=== PATIENT | male | born 1975 | race Caucasian/White ===

== ENCOUNTER 2019-02-20 00:58 | Observation (INO) | payer SELFPAY, OTHER | END 2019-02-20 15:40 | disposition home or self-care (01) | LOC: ER FS 00:58 → 4TH 02:41 → ICU 11:02 ==

== ENCOUNTER 2021-08-19 10:12 | Emergency (ER) | payer SELFPAY ==
[~2021-08-19] VITALS: Ht 177 cm; Wt 170.0 kg
[~2021-08-19 10:12] MED LIST: ASPI-1238 PO
--- NOTE | 2021-08-19 11:10 | ED General ---
General Chief Complaint: COVID19 Suspect/Confirmed Stated Complaint: SOB; COVID+ Source of Information: Patient History of Present Illness Date Seen by Provider: Aug 19, 2021 Time Seen by Provider: 10:31 Initial Comments 46 yo male presenting with complaints of shortness of breath and trouble breathing. He reports being diagnosed with Covid on August 16. He has had nausea, vomiting, diarrhea, right flank pain, cough, fever, chills. He feels dizzy when he stands up. He has overall been feeling like he has trouble breathing especially when he tries to move around. He has a primary provider in [place] and when he called the clinic they advised him to go to the hospital to be seen. Since he lives in [place] he came to the stand-alone emergency department here rather than going to the hospital. Timing/Duration: 4-5 Days Severity: Severe Modifying Factors: worse with Movement Associated Systoms: No Chest Pain; Cough; No Diaphoresis; Fever/Chills, Headaches, Loss of Appetite, Malaise, Nausea/Vomiting; No Rash, No Seizure; Shortness of Air; No Syncope; Weakness Allergies and Home Medications Allergies Coded Allergies: No Known Drug Allergies (Unverified , 02/20/19) Patient Home Medication List Home Medication List Reviewed: Yes Aspirin (Aspirin EC) 81 Mg Tablet.dr, 81 MG PO DAILY Prescribed by: SUZANNE LINARES on 02/20/19 1053 Azithromycin (Azithromycin) 500 Mg Tablet, 500 MG PO DAILY Prescribed by: EZEKIEL JOY on 08/19/21 1401 Benzonatate (Benzonatate) 200 Mg Capsule, 200 MG PO TID PRN for COUGH Prescribed by: EZEKIEL JOY on 08/19/21 1401 Promethazine HCl (Promethazine Tablet) 25 Mg Tablet, 25 MG PO Q6H PRN for NAUSEA/VOMITING Prescribed by: EZEKIEL JOY on 08/19/21 1401 Review of Systems Review of Systems Constitutional: see HPI, chills, fever, malaise EENTM: nose congestion; No epistaxis Respiratory: cough, short of breath Cardiovascular: No chest pain Gastrointestinal: diarrhea, nausea, vomiting Genitourinary: decreased output Musculoskeletal: back pain (Right flank and posterior back pain) Skin: No change in color, No rash Psychiatric/Neurological: Headache, Weakness (Generalized) Past Aazrjfo-Tgorgu-Yyvyzc Hx Seasonal Allergies Seasonal Allergies: No Past Medical History Surgeries: Yes Gallbladder Respiratory: Yes Asthma, Sleep Apnea Currently Using CPAP: Yes Currently Using BIPAP: No Cardiac: No Neurological: No Sexually Transmitted Disease: No (low testerone) HIV/AIDS: No Genitourinary: No Gastrointestinal: No Musculoskeletal: No Endocrine: No HEENT: No Cancer: No Psychosocial: Yes Anxiety Integumentary: No Blood Disorders: No Family Medical History Cardiovascular disease grandparents Physical Exam Vital Signs Vital Signs - First Documented 08/19/21 08/19/21 11:06 14:36 Temp 38.7 Pulse 87 Resp 11 B/P (MAP) 142/116 (125) Pulse Ox 99 O2 Delivery Room Air Capillary Refill : Height, Weight, BMI Height: 5'9.00" Weight: 358lbs. 8.0oz. 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 Norm as Tested Skin: Normal Color, Warm/Dry Focused Exam Lactate Level 08/19/21 11:01: Lactic Acid Level 0.72 Lactic Acid Level Laboratory Tests Test 08/19/21 11:01 Lactic Acid Level 0.72 MMOL/L (0.50-2.00) Progress/Results/Core Measures Suspected Sepsis SIRS Temperature: Pulse: Respiratory Rate: Laboratory Tests 08/19/21 11:01: White Blood Count 6.7 Blood Pressure / Mean: 08/19/21 11:01: Lactic Acid Level 0.72 Laboratory Tests 08/19/21 11:01: Creatinine 1.31H, INR Comment 1.0, Platelet Count 225, Total Bilirubin 0.3 Results/Orders Lab Results Laboratory Tests Test 08/19/21 11:01 08/19/21 11:15 Range/Units White Blood Count 6.7 4.3-11.0 10^3/uL Red Blood Count 4.51 4.30-5.52 10^6/uL Hemoglobin 13.5 13.3-17.7 g/dL Hematocrit 40 40-54 % Mean Corpuscular Volume 89 80-99 fL Mean Corpuscular Hemoglobin 30 25-34 pg Mean Corpuscular Hemoglobin Concent 34 32-36 g/dL Red Cell Distribution Width 13.3 10.0-14.5 % Platelet Count 225 130-400 10^3/uL Mean Platelet Volume 10.2 9.0-12.2 fL Neutrophils (%) (Auto) 65 42-75 % Lymphocytes (%) (Auto) 29 12-44 % Monocytes (%) (Auto) 5 0-12 % Eosinophils (%) (Auto) 0 0-10 % Basophils (%) (Auto) 0 0-10 % Neutrophils # (Auto) 4.4 1.8-7.8 X 10^3 Lymphocytes # (Auto) 2.0 1.0-4.0 X 10^3 Monocytes # (Auto) 0.4 0.0-1.0 X 10^3 Eosinophils # (Auto) 0.0 0.0-0.3 10^3/uL Basophils # (Auto) 0.0 0.0-0.1 10^3/uL Prothrombin Time 13.5 12.2-14.7 SEC INR Comment 1.0 0.8-1.4 Activated Partial Thromboplast Time 33 24-35 SEC D-Dimer 0.46 0.00-0.49 UG/ML Sodium Level 135 135-145 MMOL/L Potassium Level 3.8 3.6-5.0 MMOL/L Chloride Level 100 98-107 MMOL/L Carbon Dioxide Level 23 21-32 MMOL/L Anion Gap 12 5-14 MMOL/L Blood Urea Nitrogen 13 7-18 MG/DL Creatinine 1.31 H 0.60-1.30 MG/DL Estimat Glomerular Filtration Rate 59 BUN/Creatinine Ratio 93 Glucose Level 93 70-105 MG/DL Lactic Acid Level 0.72 0.50-2.00 MMOL/L Calcium Level 8.7 8.5-10.1 MG/DL Corrected Calcium 9.0 8.5-10.1 MG/DL Total Bilirubin 0.3 0.1-1.0 MG/DL Aspartate Amino Transf (AST/SGOT) 35 H 5-34 U/L Alanine Aminotransferase (ALT/SGPT) 33 0-55 U/L Alkaline Phosphatase 76 40-136 U/L Troponin I < 0.30 <0.30 NG/ML C-Reactive Protein 8.43 H <0.50 MG/DL Total Protein 7.2 6.4-8.2 GM/DL Albumin 3.6 3.2-4.5 GM/DL Blood Gas Puncture Site LT RADIAL Blood Gas Patient Temperature 101.6 Arterial Blood pH 7.43 7.37-7.43 Arterial Blood Partial Pressure CO2 38 35-45 MMHG Arterial Blood Partial Pressure O2 58 L 79-93 MMHG Arterial Blood HCO3 25 23-27 MMOL/L Arterial Blood Total CO2 26.4 21.0-31.0 MMOL/L Arterial Blood Oxygen Saturation 91 L 94-100 % Arterial Blood Base Excess 1.0 -2.5-2.5 MMOL/L Freddie Test NA Blood Gas Ventilator Setting NO Blood Gas Inspired Oxygen ROOM AIR My Orders Orders - EZEKIEL JOY MD Monitor-Rhythm Ecg Trace Only (08/19/21 11:03) Ed Iv/Invasive Line Start (08/19/21 11:03) Cbc With Automated Diff (08/19/21 11:03) Comprehensive Metabolic Panel (08/19/21 11:03) Crp Fs (08/19/21 11:03) Troponin I Fs (08/19/21 11:03) Protime With Inr (08/19/21 11:03) Partial Thromboplastin Time (08/19/21 11:03) Ekg Tracing (08/19/21 11:03) Arterial Blood Gas (08/19/21 11:03) Ns Iv 1000 Ml (Sodium Chloride 0.9%) (08/19/21 11:15) Acetaminophen Tablet/Caplet (Tylenol T (08/19/21 11:15) Ondansetron Injection (Zofran Injectio (08/19/21 11:15) Covid-19 External Lab Results (08/19/21 11:03) Isolation Central Supply Req (08/19/21 11:03) Blood Culture (08/19/21 11:03) Fibrin Degradation Products (08/19/21 11:03) Ua Culture If Indicated (08/19/21 11:03) Chest 1 View Ap/Pa Only (08/19/21 11:03) Ct [facility] Chest/Noang Abd-Pelv W (08/19/21 11:03) Lactic Acid Analyzer (08/19/21 11:03) Iohexol Injection (Omnipaque 350 Mg/Ml 1 (08/19/21 12:30) Received Contrast (Hold Metformin- Contr (08/19/21 12:30) Ns (Ivpb) (Sodium Chloride 0.9% Ivpb Bag (08/19/21 12:30) Albuterol Inhaler (Albuterol) (08/19/21 14:00) Benzonatate Capsule (Tessalon Perles) (08/19/21 13:31) Ketorolac Injection (Toradol Injection) (08/19/21 13:31) Azithromycin Tablet (Zithromax Tablet) (08/19/21 13:31) Nursing Communication (Order) (08/19/21 13:33) Benzonatate Capsule (Tessalon Perles) (08/19/21 13:39) Medications Given in ED Current Medications Medications Dose Ordered Sig/Annel Route Start Time Stop Time Status Last Admin Dose Admin Acetaminophen 650 mg ONCE ONCE PO 08/19/21 11:15 08/19/21 11:16 DC 08/19/21 11:19 650 MG Iohexol 150 ml ONCE ONCE IV 08/19/21 12:30 08/19/21 12:31 DC 08/19/21 12:21 125 ML Ondansetron HCl 4 mg ONCE ONCE IV 08/19/21 11:15 08/19/21 11:16 DC 08/19/21 11:17 4 MG Sodium Chloride 100 ml ONCE ONCE IV 08/19/21 12:30 08/19/21 12:31 DC 08/19/21 12:21 80 ML Vital Signs/I&O 08/19/21 08/19/21 11:06 14:36 Temp 38.7 Pulse 87 87 Resp 11 18 B/P (MAP) 142/116 (125) 110/47 Pulse Ox 99 O2 Delivery Room Air Room Air Capillary Refill : Progress Note #1: Progress Note Obtain basic labs as well as blood cultures, lactic acid, electrocardiogram, chest x-ray, D-dimer, anticipate performing a CT angiogram of chest with CT abdomen/pelvis with contrast. Give IVF for hydration. Acetaminophen for fever. Zofran for nausea. Differential diagnosis includes Covid pneumonia, sepsis, atypical bacterial pneumonia, pyelonephritis, gastroenteritis, dehydration Progress Note #2: Progress Note CBC does not show acute significant abnormality. His lactic acid came back normal at 0.72. Rest of his chemistry appeared stable other than mild elevation of creatinine to 1.3. He had elevated CRP consistent with his Covid infection. He had infiltrate. On his chest x-ray. His electrocardiogram did not show any ischemic changes. His troponin was negative. D-dimer was negative. The CT angiogram of the chest showed the pneumonia but no evidence of pulmonary embolism or heart failure. The abdomen and pelvis component of the CT scan showed no acute process to explain his right CVA and flank pain. His appendix appeared normal. Progress Note #3: Progress Note Patient was feeling slightly better after fluids and treatment. Will use albuterol inhaler with spacer to help with his breathing and cough. Tessalon Perles to help with coughing. Encouraged to use Mucinex [id number] to help thin out his secretions. Continue to push fluids at home. Add on azithromycin 500 mg a day for 5 days for atypical bacterial pneumonia coverage. ECG Initial ECG Impression Date: Aug 19, 2021 Initial ECG Impression Time: 10:39 Initial ECG Rate: 84 Initial ECG Rhythm: Normal Sinus Initial ECG Comparisson: No Previous ECG Available Comment Sinus rhythm with a heart rate of 84 bpm. Left ventricular hypertrophy. MD interval [address] elevation. Borderline T abnormalities in inferior leads. QT interval 368 ms with a QTc interval 436 ms. No prior tracing available for comparison. Diagnostic Imaging Diagonstic Imaging: Xray Plain Films/CT/US/NM/MRI: chest Comments [facility], [place] NAME: URSULA [facility]ON [facility] REC#: [id number] PT STATUS: DEP ER : 1975 PHYSICIAN: EZEKIEL JOY MD ADMIT DATE: 08/19/21/ER FS Signed Date of Exam:08/19/21 CHEST 1 VIEW AP/PA ONLY INDICATION: Cough and fever, shortness breath. Patient is COVID 19 positive TIME OF EXAM: 11:15 a.m. Comparison is made with prior chest from 02/20/2019. Heart is enlarged. There are some patchy infiltrates left mid and lower lung field suggestive of pneumonia. Right lung appears to be fairly clear. No significant new effusion is seen. IMPRESSION: Patchy left-sided infiltrate suggestive of pneumonia. Dictated by: Dictated on workstation # [id number] Dict: 08/19/21 1124 Trans: 08/19/21 1603 CV [id number] Interpreted by: TASHIA RIOS MD Electronically signed by: TASHIA RIOS MD 08/19/21 1606 Reviewed: Reviewed by Me Diagonstic Imaging: CT Plain Films/CT/US/NM/MRI: chest, abdomen, pelvis Comments [facility] [address] [place], [place] NAME: URSULA ALSTON [facility] REC#: [id number] PT STATUS: DEP ER : 1975 PHYSICIAN: EZEKIEL JOY MD ADMIT DATE: 08/19/21/ER FS Signed Date of Exam:08/19/21 CT HERMELINDA CHEST/NOANG ABD-PELV W INDICATION: Covid+, cough, SOA, fever, Rt flank pain, n/v/d. EXAMINATION: CTA chest, abdomen, and pelvis. TECHNIQUE: Thin axial sections through the chest, abdomen, and pelvis were obtained following intravenous contrast bolus. Multiplanar MIP images were reconstructed and reviewed. All CT scans use one or more of the following dose optimizing techniques: automated exposure control, MA and/or KvP adjustment based on patient size and exam type or iterative reconstruction. FINDINGS: CT ANGIO CHEST: Evaluation of the pulmonary arterial system is without evidence of thromboembolism. No definite filling defects are seen within the central, lobar, or segmental branches. The thoracic aorta is without aneurysm or dissection. There is no pericardial fluid. There is no significant pleural fluid. Parenchymal evaluation does show some patchy groundglass infiltrates in the left upper lobe. There is some airspace consolidation in the left lower lobe. There is dependent atelectasis in both bases. IMPRESSION: 1. No evidence of pulmonary embolism or acute aortic disease. 2. Pulmonary infiltrates, consistent with pneumonia. CT ABDOMEN AND PELVIS: No discrete liver mass is detected. The gallbladder is surgically absent. There is no biliary ductal dilatation. The pancreas and spleen are unremarkable. No adrenal mass is detected. The kidneys are unremarkable. The aorta is nonaneurysmal. The small and large bowel loops are of normal caliber. There is no obstruction. The appendix is unremarkable. There is no free fluid or fluid collection. The bladder is decompressed. The prostate is unremarkable. IMPRESSION: No acute feature in the abdomen or pelvis is identified. Dictated by: Dictated on workstation # [id number] Dict: 08/19/21 1225 Trans: 08/19/21 1604 [id number] Interpreted by: TASHIA RIOS MD Electronically signed by: TASHIA RIOS MD 08/19/21 1604 Reviewed: Reviewed by Me Departure Impression Primary Impression: Pneumonia involving left lung Qualified Codes: J18.9 - Pneumonia, unspecified organism Additional Impressions: COVID-19 virus infection Nausea vomiting and diarrhea Headache Qualified Codes: R51.9 - Headache, unspecified Right flank pain Dehydration Fever and chills Viral syndrome Disposition: HOME, SELF-CARE Condition: Stable Departure-Patient Inst. Decision time for Depature: 14:03 Referrals: MEREDITH OSBORN (PCP/Family) Primary Care Physician Patient Instructions: COVID-19 ED, Fever, Adult ED, Flank Pain ED, Headache, Adult ED, How to Use a Metered Dose Inhaler ED, How to Use a Spacer, Nausea and Vomiting, Adult ED, Pneumonia, Adult ED Add. Discharge Instructions: Try to keep sipping on fluids and staying hydrated. Use the albuterol inhaler 2 puffs with the spacer every 4-6 hours as needed for wheezing, cough, shortness of breath. Use the nausea medicine to help keep your stomach settled. To help treat for the pneumonia make sure to take the full course of azithromycin. Use the Tessalon Perles or benzonatate to help with cough. You may also take szig-[id number] plain Mucinex to help loosen the cough and congestion. If worsening symptoms or not improving then certainly you could be reevaluated. Otherwise continue to work with your primary provider about your symptoms and the Covid infection with pneumonia. You may alternate acetaminophen and ibuprofen to help with headache and body aches. All discharge instructions reviewed with patient and/or family. Voiced understanding. Scripts Benzonatate (Benzonatate) 200 Mg Capsule 200 MG PO TID PRN for COUGH for 10 Days, #30 CAP 0 Refills Prov: EZEKIEL JOY MD 08/19/21 Azithromycin (Azithromycin) 500 Mg Tablet 500 MG PO DAILY for pneumonia for 4 Days, #4 TAB 0 Refills Prov: EZEKIEL JOY MD 08/19/21 Promethazine HCl (Promethazine Tablet) 25 Mg Tablet 25 MG PO Q6H PRN for NAUSEA/VOMITING for 5 Days, #20 TAB 0 Refills Prov: EZEKIEL JOY MD 08/19/21 EZEKIEL JOY MD Aug 19, 2021 11:10
[2021-08-19] MEDS ORDERED: NS IV 1000 ML 1,000 ML IV SCH (11:15)
[2021-08-19] MEDS ORDERED: ONDANSETRON 4 MG/2 ML (SDV) Z0FRAN IV ONE (11:15)
[2021-08-19] MEDS ORDERED: ACETAMINOPHEN 325 MG TABLET PO ONE (11:15)
--- NOTE | 2021-08-19 11:32 | Diagnostic Imaging Report ---
INDICATION: Cough and fever, shortness breath. Patient is COVID 19 positive TIME OF EXAM: 11:15 a.m. Comparison is made with prior chest from 02/20/2019. Heart is enlarged. There are some patchy infiltrates left mid and lower lung field suggestive of pneumonia. Right lung appears to be fairly clear. No significant new effusion is seen. IMPRESSION: Patchy left-sided infiltrate suggestive of pneumonia. Dictated by: Dictated on workstation # [id number]
[2021-08-19 11:41] LABS: BUN/CREATININE RATIO 93; CARBON DIOXIDE 23 MMOL/L (21-32); CHLORIDE 100 MMOL/L (98-107); CREATININE SERUM 1.31 MG/DL (0.60-1.30); GFR ESTIMATED 59; POTASSIUM 3.8 MMOL/L (3.6-5.0); SODIUM 135 MMOL/L (135-145)
[2021-08-19 11:42] LABS: ALANINE AMINOTRANSFERASE 33 U/L (0-55); ALBUMIN 3.6 GM/DL (3.2-4.5); ALKALINE PHOSPHATASE 76 U/L (40-136); BILIRUBIN,TOTAL 0.3 MG/DL (0.1-1.0); CALCIUM 8.7 MG/DL (8.5-10.1); GLUCOSE 93 MG/DL (70-105); TOTAL PROTEIN 7.2 GM/DL (6.4-8.2)
[2021-08-19 11:43] LABS: HEMATOCRIT 40 % (40-54); HEMOGLOBIN 13.5 g/dL (13.3-17.7); MEAN CORPUSCULAR HEMOGLOBIN 30 pg (25-34); MEAN CORPUSCULAR HGB CONC 34 g/dL (32-36); MEAN CORPUSCULAR VOLUME 89 fL (80-99); WHITE BLOOD COUNT 6.7 10^3/uL (4.3-11.0)
[2021-08-19 11:44] LABS: BASOPHILS % (AUTO) 0 % (0-10); EOSINOPHILS % (AUTO) 0 % (0-10); LYMPHOCYTES % (AUTO) 29 % (12-44); MEAN PLATELET VOLUME 10.2 fL (9.0-12.2); MONOCYTES # (AUTO) 0.4 X 10^3 (0.0-1.0); MONOCYTES % (AUTO) 5 % (0-12); NEUTROPHILS # (AUTO) 4.4 X 10^3 (1.8-7.8); NEUTROPHILS % (AUTO) 65 % (42-75); PLATELET COUNT 225 10^3/uL (130-400)
[2021-08-19 11:45] LABS: ABG OXYGEN SATURATION 91 % (94-100); ABG PCO2 38 MMHG (35-45); ABG PH 7.43 (7.37-7.43); ABG PO2 58 MMHG (79-93); ABG TCO2 26.4 MMOL/L (21.0-31.0)
[2021-08-19 11:46] LABS: INSPIRED O2 ROOM AIR; PATIENT TEMP 101.6; VENTILATOR NO
[2021-08-19 11:47] LABS: FIBRIN DEGRADATION PRODUCTS 0.46 UG/ML (0.00-0.49); PROTHROMBIN TIME PATIENT 13.5 SEC (12.2-14.7)
--- OUTSIDE RECORDS SUMMARY | 2021-08-19 12:14 | XMS REPORT | Clinical Summary ---
Author Author [facility] Organization [facility] Address Unknown Phone Unavailable Care Team Providers Care Crop Scout Name Role Phone Zac Bauman PCP Allergies No known active allergies Medications End Date Status Medication Sig Dispensed Refills Start Date Active vilazodone (VIIBRYD) 40 Take 20 mg by 0 mg Tab tablet mouth daily. Active albuterol 2 puffs as 0 (PROAIR/PROVENTIL/VENTOLI needed 0 N) 90 mcg/actuation HFA inhaler Active Problems Problem Noted Date Tenosynovitis, de Quervain 03/27/2021 Acute medial meniscal tear, right, initial encounter 02/12/2021 Chondromalacia of patellofemoral joint, right 2020 Social History Date Tobacco Use Types Packs/Day Years Used Never Smoker Smokeless Tobacco: Never Used Comments Alcohol Use Standard Drinks/Week Not Currently 0 (1 standard drink = 0.6 o z pure alcohol) Sex Assigned at Date Recorded Not on file Last Filed Vital Signs Reading Time Taken Comments Vital Sign 139/89 03/27/2021 2:00 PM CDT Blood Pressure 65 03/27/2021 2:00 PM CDT Pulse 36.4 C (97.6 F) 03/27/2021 1:30 PM CDT Temperature 16 03/27/2021 2:00 PM CDT Respiratory Rate 94% 03/27/2021 2:00 PM CDT Oxygen Saturation - - Inhaled Oxygen Concentration 182.8 kg (403 lb) 03/27/2021 10:01 AM CDT Weight 175.3 cm (5' 9") 03/25/2021 9:37 AM CDT Height 59.51 03/25/2021 9:37 AM CDT Body Mass Index Plan of Treatment Health Maintenance Due Date Last Done Comments Td/Tdap# 1975 COVID-19 Vaccine (1) 1987 Influenza Vaccine (#1) 2021 Pneumococcal Vaccine: Aged Out No longer eligib le based on patient's age to Pediatrics (0 to 5 Years) complete this topic and At-Risk Patients (6 to 64 Years) Results Not on filefrom Last 3 Months Insurance Type Payer Benefit Subscriber ID Effective Phone Address Plan / Dates Group [employer] COMPENS[employer] M[employer] WORK [id number] 2020-P [phone] [address] [id number] OTHER GOVERNMENT COVID19 [id number] 2021- [phone] [place] [place] [id number] UNINSURED ATTN: TESTING [employer] AND [employer] [place] [address] Advance Directives For more information, please contact: [phone] Patient Transfer Table Operator Explanation Type Date Recorded Health Care Directive Care Teams Start Date End Date Crop Scout Relationship Specialty 02/04/21 Zac Bauman PA PCP - General Physician [address] [place] [id number]
[2021-08-19] MEDS ORDERED: IOHEXOL 350 MG/ML 150 ML (OMNIPAQUE 350) VIAL IV ONE (12:30)
[2021-08-19] MEDS ORDERED: NS 100 ML (IVPB) BAG IV ONE (12:30)
[2021-08-19] MEDS ORDERED: HOLD METFORMIN - RECEIVED CONTRAST 20 ML VIAL IV SCH (12:30)
--- NOTE | 2021-08-19 12:41 | Diagnostic Imaging Report ---
INDICATION: Covid+, cough, SOA, fever, Rt flank pain, n/v/d. EXAMINATION: CTA chest, abdomen, and pelvis. TECHNIQUE: Thin axial sections through the chest, abdomen, and pelvis were obtained following intravenous contrast bolus. Multiplanar MIP images were reconstructed and reviewed. All CT scans use one or more of the following dose optimizing techniques: automated exposure control, MA and/or KvP adjustment based on patient size and exam type or iterative reconstruction. FINDINGS: CT ANGIO CHEST: Evaluation of the pulmonary arterial system is without evidence of thromboembolism. No definite filling defects are seen within the central, lobar, or segmental branches. The thoracic aorta is without aneurysm or dissection. There is no pericardial fluid. There is no significant pleural fluid. Parenchymal evaluation does show some patchy groundglass infiltrates in the left upper lobe. There is some airspace consolidation in the left lower lobe. There is dependent atelectasis in both bases. IMPRESSION: 1. No evidence of pulmonary embolism or acute aortic disease. 2. Pulmonary infiltrates, consistent with pneumonia. CT ABDOMEN AND PELVIS: No discrete liver mass is detected. The gallbladder is surgically absent. There is no biliary ductal dilatation. The pancreas and spleen are unremarkable. No adrenal mass is detected. The kidneys are unremarkable. The aorta is nonaneurysmal. The small and large bowel loops are of normal caliber. There is no obstruction. The appendix is unremarkable. There is no free fluid or fluid collection. The bladder is decompressed. The prostate is unremarkable. IMPRESSION: No acute feature in the abdomen or pelvis is identified. Dictated by: Dictated on workstation # [id number]
[2021-08-19] MEDS ORDERED: BENZONATATE 100 MG (TESSALON) CAPSULE PO STA (13:31)
[2021-08-19] MEDS ORDERED: AZITHROMYCIN 250 MG TAB (ZITHROMAX) PO STA (13:31)
[2021-08-19] MEDS ORDERED: KETOROLAC 30 MG/ML VIAL IVP STA (13:31)
[2021-08-19] MEDS ORDERED: BENZONATATE 100 MG (TESSALON) CAPSULE PO ONE (13:39)
[2021-08-19] MEDS ORDERED: RT-ALBUTEROL HFA 8.5 GM INHALER IH SCH (14:00)
[2021-08-19] MEDS ORDERED: BENZ200C51 PO (14:01)
[2021-08-19] MEDS ORDERED: PROM25TA14 PO (14:01)
[2021-08-19] MEDS ORDERED: AZIT500T9 PO (14:01)
[2021-08-19 14:36] VITALS: BP 110/47
== END 2021-08-19 14:33 | disposition home or self-care (01) ==
LOC: EDUNIT# 10:12 → ER FS 10:13
DX: U07.1 COVID-19 (principal); J18.1 Lobar pneumonia, unspecified organism; R11.2 Nausea with vomiting, unspecified; E86.0 Dehydration; E66.9 Obesity, unspecified; G47.30 Sleep apnea, unspecified; Z68.43 Body mass index [BMI] 50.0-59.9, adult; Z79.82 Long term (current) use of aspirin
CPT/HCPCS: 36415; 71045; 71275; 74177; 80053; 82805; 83605; 84484; 85025; 85379; 85610; 85730; 86141; 87040; 93005

== ENCOUNTER 2021-08-20 14:36 | Inpatient (IN) | payer OTHER ==
[~2021-08-20] VITALS: Ht 177 cm; Wt 168.5 kg
[~2021-08-20 14:36] MED LIST changes: +AZIT500T9 PO; +BENZ200C51 PO; +PROM25TA14 PO
[2021-08-20] MEDS ORDERED: NS IV 1000 ML 1,000 ML IV SCH (14:45)
[2021-08-20] MEDS ORDERED: ACETAMINOPHEN 500 MG TAB (TYLENOL) PO ONE (14:45)
[2021-08-20] MEDS ORDERED: KETOROLAC 30 MG/ML VIAL IVP ONE (15:00)
--- NOTE | 2021-08-20 15:23 | Diagnostic Imaging Report ---
Indication: Cough and fever. Shortness of breath. COMPARISON: 08/19/2021. FINDINGS: There are increasing infiltrates in the left hemithorax. Questionable developing infiltrate is seen in the right upper lobe and right base. The heart remains enlarged. There is no pneumothorax. No pleural effusion identified. Osseous structures are stable. IMPRESSION: 1. Increasing infiltrates left hemithorax 2. Probable developing infiltrate right upper lobe and right base. Dictated by: Dictated on workstation # [id number]
[2021-08-20 15:27] LABS: ABG BASE EXCESS -0.2 MMOL/L (-2.5-2.5); ABG OXYGEN SATURATION 92 % (94-100); ABG PCO2 37 MMHG (35-45); ABG PH 7.42 (7.37-7.43); ABG PO2 62 MMHG (79-93); ABG TCO2 25.1 MMOL/L (21.0-31.0)
[2021-08-20 15:28] LABS: ALLENS TEST YES-POS; INSPIRED O2 94% @ 3L; PATIENT TEMP 37; VENTILATOR NO
[2021-08-20 15:32] LABS: HEMOGLOBIN 13.4 g/dL (13.3-17.7); MEAN CORPUSCULAR HEMOGLOBIN 30 pg (25-34); WHITE BLOOD COUNT 7.3 10^3/uL (4.3-11.0)
[2021-08-20 15:33] LABS: BASOPHILS % (AUTO) 0 % (0-10); EOSINOPHILS % (AUTO) 0 % (0-10); HEMATOCRIT 40 % (40-54); LYMPHOCYTES # (AUTO) 1.4 X 10^3 (1.0-4.0); LYMPHOCYTES % (AUTO) 20 % (12-44); MEAN CORPUSCULAR HGB CONC 33 g/dL (32-36); MEAN CORPUSCULAR VOLUME 88 fL (80-99); MEAN PLATELET VOLUME 9.9 fL (9.0-12.2); MONOCYTES # (AUTO) 0.2 X 10^3 (0.0-1.0); MONOCYTES % (AUTO) 3 % (0-12); NEUTROPHILS # (AUTO) 5.6 X 10^3 (1.8-7.8); NEUTROPHILS % (AUTO) 77 % (42-75); PLATELET COUNT 230 10^3/uL (130-400)
[2021-08-20 15:49] LABS: POTASSIUM 3.8 MMOL/L (3.6-5.0); SODIUM 133 MMOL/L (135-145)
[2021-08-20 15:50] LABS: ALANINE AMINOTRANSFERASE 32 U/L (0-55); ALKALINE PHOSPHATASE 77 U/L (40-136); BILIRUBIN,TOTAL 0.3 MG/DL (0.1-1.0); BUN/CREATININE RATIO 13; CALCIUM 8.7 MG/DL (8.5-10.1); CARBON DIOXIDE 20 MMOL/L (21-32); CHLORIDE 100 MMOL/L (98-107); CREATININE SERUM 1.03 MG/DL (0.60-1.30); GFR ESTIMATED 78; GLUCOSE 132 MG/DL (70-105)
[2021-08-20 15:51] LABS: ALBUMIN 3.3 GM/DL (3.2-4.5); TOTAL PROTEIN 7.1 GM/DL (6.4-8.2)
--- NOTE | 2021-08-20 15:54 | ED General ---
General Chief Complaint: COVID19 Suspect/Confirmed Stated Complaint: COVID+; SOB; SYNCOPAL EPISODES Nursing Triage Note: PT REPORTS WORSENING SOB FROM HIS ER VISIT YESTERDAY FOR COVID. HE STARTED HAVING COVID SYMPTOMS 5 DAYS AGO. History of Present Illness Date Seen by Provider: Aug 20, 2021 Time Seen by Provider: 15:48 Initial Comments Patient presenting to the emergency department for evaluation of worsening dyspnea in the setting of testing positive for the Covid virus on August 16. Patient was seen in this emergency department yesterday and reportedly his oxygen saturation was 97% on room air but he had an ABG that showed an oxygen saturation of 91%. Patient was sent home with [place] and told to come back if he was feeling worse. On room air his oxygen saturation is 83% and he says he feels much more short of breath. Patient had a CT angiogram done yesterday that showed primarily left-sided pneumonia with no pulmonary embolism. Patient says he has no medical problems and takes no medications on a regular basis and does not smoke cigarettes. He does have an elevated BMI and states that he has not been vaccinated for the Covid virus. He appears dyspneic but nontoxic and on 3 L she has an oxygen saturation in the mid 90s. Allergies and Home Medications Allergies Coded Allergies: No Known Drug Allergies (Unverified , 02/20/19) Patient Home Medication List Home Medication List Reviewed: Yes Aspirin (Aspirin EC) 81 Mg Tablet.dr, 81 MG PO DAILY Prescribed by: SUZANNE LINARES on 02/20/19 1053 Azithromycin (Azithromycin) 500 Mg Tablet, 500 MG PO DAILY Prescribed by: EZEKIEL JOY on 08/19/21 1401 Benzonatate (Benzonatate) 200 Mg Capsule, 200 MG PO TID PRN for COUGH Prescribed by: EZEKIEL JOY on 08/19/21 1401 Promethazine HCl (Promethazine Tablet) 25 Mg Tablet, 25 MG PO Q6H PRN for NAUSEA/VOMITING Prescribed by: EZEKIEL JOY on 08/19/21 1401 Review of Systems Review of Systems Constitutional: chills, fever, malaise EENTM: no symptoms reported Respiratory: cough, short of breath Cardiovascular: no symptoms reported Gastrointestinal: nausea, vomiting Musculoskeletal: joint pain, muscle pain Skin: no symptoms reported Psychiatric/Neurological: No Symptoms Reported All Other Systems Reviewed Negative Unless Noted: Yes Past Btymiug-Btnrtn-Mwiwdk Hx Patient Social History Tobacco Use?: No Use of E-Cig and/or Vaping dev: No Substance use?: No Alcohol Use?: No Pt feels they are or have been: No Seasonal Allergies Seasonal Allergies: No Past Medical History Surgeries: Yes Gallbladder Respiratory: Yes Asthma, Sleep Apnea Currently Using CPAP: Yes Currently Using BIPAP: No Cardiac: No Neurological: No Sexually Transmitted Disease: No (low testerone) HIV/AIDS: No Genitourinary: No Gastrointestinal: No Musculoskeletal: No Endocrine: No HEENT: No Cancer: No Psychosocial: Yes Anxiety Integumentary: No Blood Disorders: No Family Medical History Cardiovascular disease grandparents Physical Exam Vital Signs Vital Signs - First Documented 08/20/21 08/20/21 14:50 15:18 Temp 37.0 Pulse 101 Resp 30 B/P (MAP) 227/84 (131) Pulse Ox 83 O2 Delivery Room Air Capillary Refill : Less Than 3 Seconds Height, Weight, BMI Height: 5'9.00" Weight: 358lbs. 8.0oz. [id number]; 54.00 BMI Method:Stated General Appearance: Other (Dyspneic but nontoxic) HEENT: PERRL/EOMI Neck: Non Tender, Supple Respiratory: Other (Dyspneic with coarse breath sounds) Cardiovascular: Regular Rate, Rhythm Gastrointestinal: Non Tender, Soft Back: Normal Inspection Extremity: Normal Capillary Refill Neurologic/Psychiatric: Alert, Oriented x3 Skin: Warm/Dry Focused Exam Lactate Level 08/20/21 15:05: Lactic Acid Level 0.81 Lactic Acid Level Laboratory Tests Test 08/20/21 15:05 Lactic Acid Level 0.81 MMOL/L (0.50-2.00) Progress/Results/Core Measures Suspected Sepsis SIRS Temperature: Pulse: 101 Respiratory Rate: 30 Laboratory Tests 08/20/21 15:05: White Blood Count 7.3 Blood Pressure 227 /84 Mean: 131 08/20/21 15:05: Lactic Acid Level 0.81 Laboratory Tests 08/20/21 15:05: Platelet Count 230 Results/Orders Lab Results Laboratory Tests Test 08/20/21 15:05 08/20/21 15:08 Range/Units White Blood Count 7.3 4.3-11.0 10^3/uL Red Blood Count 4.54 4.30-5.52 10^6/uL Hemoglobin 13.4 13.3-17.7 g/dL Hematocrit 40 40-54 % Mean Corpuscular Volume 88 80-99 fL Mean Corpuscular Hemoglobin 30 25-34 pg Mean Corpuscular Hemoglobin Concent 33 32-36 g/dL Red Cell Distribution Width 13.3 10.0-14.5 % Platelet Count 230 130-400 10^3/uL Mean Platelet Volume 9.9 9.0-12.2 fL Immature Granulocyte % (Auto) 1 % Neutrophils (%) (Auto) 77 H 42-75 % Lymphocytes (%) (Auto) 20 12-44 % Monocytes (%) (Auto) 3 0-12 % Eosinophils (%) (Auto) 0 0-10 % Basophils (%) (Auto) 0 0-10 % Neutrophils # (Auto) 5.6 1.8-7.8 X 10^3 Lymphocytes # (Auto) 1.4 1.0-4.0 X 10^3 Monocytes # (Auto) 0.2 0.0-1.0 X 10^3 Eosinophils # (Auto) 0.0 0.0-0.3 10^3/uL Basophils # (Auto) 0.0 0.0-0.1 10^3/uL Immature Granulocyte # (Auto) 0.1 0.0-0.1 10^3/uL Lactic Acid Level 0.81 0.50-2.00 MMOL/L Blood Gas Puncture Site LT. RADIAL Blood Gas Patient Temperature 37 Arterial Blood pH 7.42 7.37-7.43 Arterial Blood Partial Pressure CO2 37 35-45 MMHG Arterial Blood Partial Pressure O2 62 L 79-93 MMHG Arterial Blood HCO3 24 23-27 MMOL/L Arterial Blood Total CO2 25.1 21.0-31.0 MMOL/L Arterial Blood Oxygen Saturation 92 L 94-100 % Arterial Blood Base Excess -0.2 -2.5-2.5 MMOL/L Freddie Test YES-POS Blood Gas Ventilator Setting NO Blood Gas Inspired Oxygen 94% @ 3L My Orders Orders - MIKY WOODS DO Iv/Invasive Line Insertion .IV start (08/20/21 14:43) Cbc With Automated Diff (08/20/21 14:43) Comprehensive Metabolic Panel (08/20/21 14:43) Chest 1 View Ap/Pa Only (08/20/21 14:43) Lactic Acid Analyzer (08/20/21 14:43) Arterial Blood Gas (08/20/21 14:43) Probnp Fs (08/20/21 14:43) Troponin I Fs (08/20/21 14:43) Dexamethasone Injection (Decadron Inje (08/20/21 14:45) Ns Iv 1000 Ml (Sodium Chloride 0.9%) (08/20/21 14:45) Acetaminophen Tablet (Tylenol Tablet) (08/20/21 14:45) Ketorolac Injection (Toradol Injection) (08/20/21 15:00) Medications Given in ED Current Medications Medications Dose Ordered Sig/Annel Route Start Time Stop Time Status Last Admin Dose Admin Acetaminophen 1,000 mg ONCE ONCE PO 08/20/21 14:45 08/20/21 14:47 DC 08/20/21 15:37 1,000 MG Ketorolac Tromethamine 15 mg ONCE ONCE IVP 08/20/21 15:00 08/20/21 15:01 DC 08/20/21 15:41 15 MG Vital Signs/I&O 08/20/21 08/20/21 14:50 15:18 Temp 37.0 Pulse 101 Resp 30 B/P (MAP) 227/84 (131) Pulse Ox 83 O2 Delivery Room Air Room Air Capillary Refill : Less Than 3 Seconds Blood Pressure Mean: 131 Progress Note : Progress Note Patient is hypoxic due to his Covid pneumonia which is getting worse. I ordered 6 mg of Decadron to be given here and he continue to be supportive with oxygen and his oxygen saturation did not decrease any further in the emergency department. I spoke to Dr. Betancourt at [facility] and she agreed to accept patient for transfer. Patient will be transferred in a guarded condition. Critical Care Note Critical Care Total Time (minutes) 35 Departure Impression Primary Impression: Pneumonia due to COVID-19 virus Additional Impression: Respiratory failure, acute Qualified Codes: J96.01 - Acute respiratory failure with hypoxia Disposition: ADMITTED INPATIENT Condition: Improved Transfer Transfer Reason: Exceeds level of care Time Spoke to Accepting Phy: 15:30 Transfer Facility: [facility] Method of Transfer: EMS Departure-Patient Inst. Referrals: MEREDITH OSBORN (PCP/Family) Primary Care Physician MIKY WOODS DO Aug 20, 2021 15:54
[2021-08-20 18:17] VITALS: BP 148/82
--- NOTE | 2021-08-20 18:35 | History & Physical-Hospitalist ---
History of Present Illness HPI/Chief Complaint Chief complaint: COVID-19 pneumonia with acute hypoxic respiratory failure History present illness: This is a 46-year-old unvaccinated against Covid patient of Aamir Bauman in [place] who has a past medical history of h ypertension and TICO who presents to the [place] ER with shortness of breath. He was diagnosed with Covid the day before was not hypoxic and sent home but returned today with increased shortness of breath and acute hypoxic respiratory failure requiring inpatient stay. He is currently now on 7 L and is high risk for progression. He may be in Actemra candidate. Poor IV access noted since his IV is a 24-gauge in his chest wall. Central line may be required. Checking meds and labs. Source: patient Exam Limitations: clinical condition Date Seen 08/20/21 Time Seen by a Provider: 19:00 Attending Physician Shahnaz Betancourt DO PCP No,Local Physician Referring Physician Date of Admission Aug 20, 2021 at 18:15 Home Medications & Allergies Home Medications Reviewed patient Home Medication Reconciliation performed by pharmacy medication reconciliations certified medical technician and/or nursing. Patients Allergies have been reviewed. Allergies Allergies Coded Allergies No Known Drug Allergies (Unverified02/20/19) Past Lskkhhx-Vxmmtr-Jscryn Hx Patient Social History Marrital Status: cohabiting Employed/Student: employed (medical driver) Tobacco Use?: No Smoking Status: Never a Smoker Smokeless Tobacco Frequency: Never a User Use of E-Cig and/or Vaping dev: No Substance use?: No Alcohol Use?: No Pt feels they are or have been: No Seasonal Allergies Seasonal Allergies: No Current Status Advance Directives: No Communicates: Verbally Primary Language: Macedonian Preferred Spoken Language: Macedonian Is interpretation needed?: No Implanted or Applied Medical D: None Past Medical History Surgeries: Gallbladder Asthma, Sleep Apnea Currently Using CPAP: Yes Currently Using BIPAP: No Sexually Transmitted Disease: No (low testerone) HIV/AIDS: No Anxiety Blood Disorders: No Family Medical History Cardiovascular disease grandparents Review of Systems Constitutional: see HPI EENTM: no symptoms reported Respiratory: dyspnea on exertion, short of breath Cardiovascular: no symptoms reported Gastrointestinal: no symptoms reported Genitourinary: no symptoms reported Musculoskeletal: no symptoms reported Skin: no symptoms reported Psychiatric/Neurological: No Symptoms Reported All Other Systems Reviewed Negative Unless Noted: Yes Physical Exam Physical Exam Vital Signs Vital Signs - First Documented 08/20/21 08/20/21 08/20/21 08/21/21 14:50 15:18 18:17 03:13 Temp 37.0 Pulse 101 Resp 30 B/P (MAP) 227/84 (131) Pulse Ox 83 O2 Delivery Room Air O2 Flow Rate 7.00 FiO2 40 Capillary Refill : Less Than 3 Seconds Height, Weight, BMI Height: 5'9.00" Weight: 358lbs. 8.0oz. 162.818607ty; 55.85 BMI Method:Stated General Appearance: Anxious, Chronically ill, Mild Distress Eyes: Right Eye Normal Inspection, Right Eye PERRL HEENT: PERRL/EOMI, Normal ENT Inspection, Pharynx Normal, Moist Mucous Membranes Neck: Full Range of Motion, Normal Inspection, Non Tender Respiratory: Chest Non Tender, Lungs Clear, No Accessory Muscle Use, No Respiratory Distress, Decreased Breath Sounds Cardiovascular: Regular Rate, Rhythm, No Edema, No Gallop, No JVD, No Murmur, Normal Peripheral Pulses Gastrointestinal: Normal Bowel Sounds, No Organomegaly, No Pulsatile Mass, Non Tender, Soft Back: Normal Inspection, No CVA Tenderness, No Vertebral Tenderness Extremity: Normal Capillary Refill, Normal Inspection, Normal Range of Motion, Non Tender, No Calf Tenderness, No Pedal Edema Neurologic/Psychiatric: Alert, Oriented x3, No Motor/Sensory Deficits, Normal Mood/Affect Skin: Normal Color, Warm/Dry Lymphatic: No Adenopathy Results Results/Procedures Labs Laboratory Tests 08/20/21 15:05 08/21/21 05:36 Patient resulted labs reviewed. Assessment/Plan Admission Diagnosis Assessment: Acute hypoxic respiratory failure COVID-19 pneumonia Bacterial pneumonia TICO Morbid obesity BMI 55 Poor venous access Plan: Oxygen supplementation Cardiac stepdown High risk for intubation Actemra may be an option IV access Admission Status: Inpatient Order (span 2 midnights) Reason for Inpatient Admission: COVID-19 pneumonia Diagnosis/Problems Diagnosis/Problems (1) Pneumonia due to COVID-19 virus Status: Acute (2) Respiratory failure, acute Status: Acute Qualifiers: Respiratory failure complication: hypoxia Qualified Codes: J96.01 - Acute respiratory failure with hypoxia SHAHNAZ BETANCOURT DO Aug 20, 2021 18:35
[2021-08-20] MEDS ORDERED: FLU QUADRIvalent (3YOA+) 60 mcg/0.5 ml 2021-22(AFLURIA) IM ONE (19:00)
[2021-08-20 20:29] VITALS: BP 141/88
[2021-08-20] MEDS: ENOXAPARIN 60 MG/0.6 ML (LOVENOX) SYR SC SCH (20:30)
[2021-08-20] MEDS: CEFEPIME INJECTION 1,000 MG in NS (IVPB) 50 ML IV SCH (20:30)
[2021-08-20] MEDS: AZITHROMYCIN INJECTION 250 MG in NS (IVPB) 250 ML IV SCH (20:30)
[2021-08-20 22:50] VITALS: BP 141/88
[2021-08-21] VITALS (23 sets, daily range): BP systolic 96–147; BP diastolic 56–98
[2021-08-21] MEDS: CEFEPIME INJECTION 1,000 MG in NS (IVPB) 50 ML IV SCH ×4 (00:21→17:53)
[2021-08-21] MEDS ORDERED: RT-ALBUTEROL HFA 8.5 GM INHALER IH SCH (03:00)
[2021-08-21] MEDS: ENOXAPARIN 60 MG/0.6 ML (LOVENOX) SYR SC SCH ×2 (05:43→17:53)
[2021-08-21 05:46] LABS: BASOPHILS % (AUTO) 0 % (0-10); EOSINOPHILS % (AUTO) 0 % (0-10); HEMATOCRIT 41 % (40-54); HEMOGLOBIN 13.2 g/dL (13.3-17.7); LYMPHOCYTES # (AUTO) 0.8 10^3/uL (1.0-4.0); LYMPHOCYTES % (AUTO) 11 % (12-44); MEAN CORPUSCULAR HEMOGLOBIN 30 pg (25-34); MEAN CORPUSCULAR HGB CONC 33 g/dL (32-36); MEAN CORPUSCULAR VOLUME 91 fL (80-99); MONOCYTES # (AUTO) 0.3 10^3/uL (0.0-1.0); MONOCYTES % (AUTO) 3 % (0-12); NEUTROPHILS # (AUTO) 6.6 10^3/uL (1.8-7.8); NEUTROPHILS % (AUTO) 86 % (42-75); PLATELET COUNT 229 10^3/uL (130-400); WHITE BLOOD COUNT 7.7 10^3/uL (4.3-11.0)
[2021-08-21 06:02] LABS: ALBUMIN 3.3 GM/DL (3.2-4.5); POTASSIUM 4.5 MMOL/L (3.6-5.0)
[2021-08-21 06:03] LABS: CALCIUM 8.6 MG/DL (8.5-10.1)
[2021-08-21 06:04] LABS: TOTAL PROTEIN 6.8 GM/DL (6.4-8.2)
[2021-08-21 06:06] LABS: BILIRUBIN,TOTAL 0.3 MG/DL (0.1-1.0)
[2021-08-21 06:08] LABS: CREATININE SERUM 0.9 MG/DL (0.60-1.30)
[2021-08-21] MEDS: RT-ALBUTEROL HFA 8.5 GM INHALER IH PRN (06:19)
--- NOTE | 2021-08-21 06:44 | Diagnostic Imaging Report ---
Indication: COVID pneumonia Upright portable chest shows cardiomegaly. There are bilateral infiltrates similar to the 08/20/2021 study. There is no effusion or pneumothorax. IMPRESSION: Persistent bilateral infiltrates. Report was faxed to [facility] by larisa at 6:44AM. Dictated by: Dictated on workstation # [id number]
[2021-08-21] MEDS ORDERED: ONDANSETRON 4 MG/2 ML (SDV) Z0FRAN IVP PRN (06:45)
[2021-08-21] MEDS ORDERED: CALCIUM CARBONATE 500 MG (TUMS) TAB.CHEW PO PRN (06:45)
[2021-08-21] MEDS ORDERED: LOPERAMIDE 2 MG (IMODIUM) TABLET PO PRN (06:45)
[2021-08-21] MEDS ORDERED: DOCUSATE SODIUM 100 MG (COLACE) CAP PO PRN (06:45)
[2021-08-21] MEDS ORDERED: ALPRAZolam 0.25 MG (XANAX) TAB PO PRN (06:45)
[2021-08-21] MEDS ORDERED: diphenhydrAMINE 25 MG TAB (BENADRYL) PO PRN (06:45)
[2021-08-21] MEDS ORDERED: MELATONIN 3 MG TABLET PO PRN (06:45)
[2021-08-21] MEDS ORDERED: TOCILIZUMAB INJECTION (NON-FOR 800 MG in NS (IVPB) 60 ML IV NR (07:00)
[2021-08-21] MEDS ORDERED: ACETAMINOPHEN 325 MG TABLET PO PRN (07:00)
[2021-08-21 07:09] LABS: ABG BASE EXCESS -1.4 MMOL/L (-2.5-2.5); ABG OXYGEN SATURATION 93 % (94-100); ABG PCO2 42 MMHG (35-45); ABG PH 7.36 (7.37-7.43); ABG PO2 69 MMHG (79-93); ABG TCO2 24.6 MMOL/L (21.0-31.0)
[2021-08-21 07:10] LABS: ALLENS TEST YES-POS; INSPIRED O2 60%; PATIENT TEMP 98.3; VENTILATOR NO
--- NOTE | 2021-08-21 07:10 | Consultation - Surgery ---
ABEBE PLUNKETT 08/21/21 0710: History of Present Illness History of Present Illness Patient Consulted On(igor/time) 08/21/21 07:05 Date Seen by Provider: Aug 21, 2021 Time Seen by Provider: 07:05 History of Present Illness Mr. Frazier is a 46yo male with past medical history of asthma and obstructive sleep apnea who presented to the ED for evaluation of worsening dyspnea which began on 08/16 and tested positive for Covid-19. Patient is currently on Bipap with 60% FiO2 and the history was limited due to this. He does not smoke cigarettes nor was he vaccinated for Covid-19. His chest XR from 08/21 showed similar results from 08/20 with bilateral infiltrates. Due to his progression, he will be transferred to the ICU this morning for closer monitoring. He continues to be dyspnic but nontoxic. He has not chest pain, nausea, or vomiting. Allergies and Home Medications Allergies Coded Allergies: No Known Drug Allergies (Unverified , 02/20/19) Patient Home Medication List Azithromycin (Azithromycin) 500 Mg Tablet, 500 MG PO DAILY, (Reported) Entered as Reported by: YAZAN MANCUSO on 08/21/211228 Last Action: Reviewed Benzonatate (Tessalon Perles) 100 Mg Capsule, 200 MG PO TID PRN for COUGH, (Reported) Entered as Reported by: YAZAN MANCUSO on 08/21/211228 Last Action: Reviewed Ibuprofen (Ibuprofen) 200 Mg Capsule, 400-600 MG PO Q8H PRN for PAIN-MILD (1-4), (Reported) Entered as Reported by: AYZAN MANCUSO on 08/21/211228 Last Action: Reviewed Promethazine HCl (Promethazine Tablet) 25 Mg Tablet, 25 MG PO Q6H PRN for NAUSEA/VOMITING, (Reported) Entered as Reported by: YAZAN MANCUSO on 08/21/211228 Last Action: Reviewed Vilazodone Hydrochloride (Viibryd) 20 Mg Tablet, 20 MG PO HS, (Reported) Entered as Reported by: YAZAN MANCUSO on 08/21/211228 Last Action: Reviewed Discontinued Medications Aspirin (Aspirin EC) 81 Mg Tablet., 81 MG PO DAILY Discontinued Reason: Duplicate Order Prescribed by: SUZANNE LINARES on 02/20/19 1051 Last Action: Discontinued Azithromycin (Azithromycin) 500 Mg Tablet, 500 MG PO DAILY Discontinued Reason: Duplicate Order Prescribed by: EZEKIEL JOY on 08/19/211400 Last Action: Discontinued Benzonatate (Benzonatate) 200 Mg Capsule, 200 MG PO TID PRN for COUGH Discontinued Reason: Duplicate Order Prescribed by: EZEKIEL JOY on 08/19/211400 Last Action: Discontinued Promethazine HCl (Promethazine Tablet) 25 Mg Tablet, 25 MG PO Q6H PRN for NAUSEA/VOMITING Discontinued Reason: Duplicate Order Prescribed by: EZEKIEL JOY on 08/19/211400 Last Action: Discontinued Past [id number]-[id number] Hx Patient Social History Smoking Status: Never a Smoker 2nd Hand Smoke Exposure: No Recent Hopitalizations: No Alcohol Use?: No Have you traveled recently?: No Seasonal Allergies Seasonal Allergies: No Surgeries History of Surgeries: Yes Surgeries: Gallbladder Respiratory History of Respiratory Disorde: Yes Respiratory Disorders: Asthma, Sleep Apnea Cardiovascular History of Cardiac Disorders: No Neurological History of Neurological Disord: No Reproductive System Sexually Transmitted Disease: No (low testerone) HIV/AIDS: No Genitourinary History of Genitourinary Disor: No Gastrointestinal History of Gastrointestinal Di: No Musculoskeletal History of Musculoskeletal Dis: No Endocrine History of Endocrine Disorders: No HEENT History of HEENT Disorders: No Cancer History of Cancer: No Psychosocial History of Psychiatric Problem: Yes Behavioral Health Disorders: Anxiety Integumentary History of Skin or Integumenta: No Blood Transfusions History of Blood Disorders: No Family Medical History Family Medial History: Cardiovascular disease grandparents Review of Systems-General Constitutional: No chills, No dizziness EENTM: No ear pain, No blurred vision Respiratory: dyspnea on exertion, short of breath Cardiovascular: No chest pain, No edema Gastrointestinal: No diarrhea, No nausea, No vomiting Genitourinary: No dysuria, No frequency Musculoskeletal: No muscle pain, No muscle stiffness Skin: No change in color, No change in hair/nails Psychiatric/Neurological: Denies Headache, Denies Paresthesia Physical Exam-General Problems Physical Exam Vital Signs Vital Signs - First Documented 08/20/21 08/20/21 08/20/21 08/21/21 14:50 15:18 18:17 03:13 Temp 37.0 Pulse 101 Resp 30 B/P (MAP) 227/84 (131) Pulse Ox 83 O2 Delivery Room Air O2 Flow Rate 7.00 FiO2 40 Capillary Refill : Less Than 3 Seconds General Appearance: mild distress, obese HEENT: PERRL/EOMI, normal ENT inspection Neck: non-tender, full range of motion Respiratory: chest non-tender, decreased breath sounds, other (Patient on BIPAP with 60% FiO2 ) Cardiovascular: regular rate, rhythm, no edema Peripheral Pulses: 2+ Radial Pulses (R), 2+ Radial Pulses (L) Gastrointestinal: non tender, soft Back: normal inspection, no CVA tenderness Extremities: normal range of motion, non-tender, normal inspection Neurologic/Psychiatric: alert, oriented x 3 Skin: normal color, warm/dry Lymphatic: no adenopathy Data Review Labs Laboratory Tests 08/20/21 15:05: White Blood Count 7.3, Red Blood Count 4.54, Hemoglobin 13.4, Hematocrit 40, Mean Corpuscular Volume 88, Mean Corpuscular Hemoglobin 30, Mean Corpuscular Hemoglobin Concent 33, Red Cell Distribution Width 13.3, Platelet Count 230, Mean Platelet Volume 9.9, Immature Granulocyte % (Auto) 1, Neutrophils (%) (Auto) 77H, Lymphocytes (%) (Auto) 20, Monocytes (%) (Auto) 3, Eosinophils (%) (Auto) 0, Basophils (%) (Auto) 0, Neutrophils # (Auto) 5.6, Lymphocytes # (Auto) 1.4, Monocytes # (Auto) 0.2, Eosinophils # (Auto) 0.0, Basophils # (Auto) 0.0, Immature Granulocyte # (Auto) 0.1, Sodium Level 133L, Potassium Level 3.8, Chloride Level 100, Carbon Dioxide Level 20L, Anion Gap 13, Blood Urea Nitrogen 13, Creatinine 1.03, Estimat Glomerular Filtration Rate 78, BUN/Creatinine Ratio 13, Glucose Level 132H, Lactic Acid Level 0.81, Calcium Level 8.7, Corrected Calcium 9.3, Total Bilirubin 0.3, Aspartate Amino Transf (AST/SGOT) 35H, Alanine Aminotransferase (ALT/SGPT) 32, Alkaline Phosphatase 77, Troponin I < 0.30, Pro -B-Type Natriuretic Peptide 146.4H, Total Protein 7.1, Albumin 3.3 08/20/21 15:08: Blood Gas Puncture Site LT. RADIAL, Blood Gas Patient Temperature 37, Arterial Blood pH 7.42, Arterial Blood Partial Pressure CO2 37, Arterial Blood Partial Pressure O2 62L, Arterial Blood HCO3 24, Arterial Blood Total CO2 25.1, Arterial Blood Oxygen Saturation 92L, Arterial Blood Base Excess -0.2, Freddie Test YES- POS, Blood Gas Ventilator Setting NO, Blood Gas Inspired Oxygen 94% @ 3L 08/20/21 17:00: 08/20/21 18:45: Procalcitonin 0.08 08/21/21 05:36: White Blood Count 7.7, Red Blood Count 4.44, Hemoglobin 13.2L, Hematocrit 41, Mean Corpuscular Volume 91, Mean Corpuscular Hemoglobin 30, Mean Corpuscular Hemoglobin Concent 33, Red Cell Distribution Width 13.3, Platelet Count 229, Mean Platelet Volume 10.0, Immature Granulocyte % (Auto) 0, Neutrophils (%) (Auto) 86H, Lymphocytes (%) (Auto) 11L, Monocytes (%) (Auto) 3, Eosinophils (%) (Auto) 0, Basophils (%) (Auto) 0, Neutrophils # (Auto) 6.6, Lymphocytes # (Auto) 0.8L, Monocytes # (Auto) 0.3, Eosinophils # (Auto) 0.0, Basophils # (Auto) 0.0, Immature Granulocyte # (Auto) 0.0, Sodium Level 138, Potassium Level 4.5, Chloride Level 106, Carbon Dioxide Level 21, Anion Gap 11, Blood Urea Nitrogen 13, Creatinine 0.90, Estimat Glomerular Filtration Rate 91, BUN/Creatinine Ratio 14, Glucose Level 128H, Calcium Level 8.6, Corrected Calcium 9.2, Total Bilirubin 0.3, Aspartate Amino Transf (AST/SGOT) 38H, Alanine Aminotransferase (ALT/SGPT) 28, Alkaline Phosphatase 63, Total Protein 6.8, Albumin 3.3 08/21/21 06:58: Radiology NAME: URSULA FRAZIER [facility] REC#: [id number] PT STATUS: ADM IN : 1975 PHYSICIAN: JENNIFER DOLL DO ADMIT DATE: 08/20/21/KELI Draft Date of Exam:08/21/21 CHEST 1 VIEW, AP/PA ONLY Indication: COVID pneumonia Upright portable chest shows cardiomegaly. There are bilateral infiltrates similar to the 08/20/2021 study. There is no effusion or pneumothorax. IMPRESSION: Persistent bilateral infiltrates. Report was faxed to [facility] by antonio at 6:44AM. Dictated on workstation # [id number] Dict: 08/21/21627 Trans: 08/21/2144 ANTONIO [id number] Interpreted by: MARYAM BALTAZAR MD Electronically signed by: Assessment/Plan Assessment/Plan Assessment/Plan Covid-19 pneumonia Obstructive sleep apnea Asthma Patient to be transferred to ICU for closer monitoring Continue BIPAP Continue anti-coagulation Continue dexamethasone Contiue antibiotics Continue Tocilizumab Continue pain control Consider central line QMAAR LIRIANO DO 08/21/21 3342: History of Present Illness History of Present Illness History of Present Illness Consult requested for venous access. Patient is a 46-year-old male with worsening dyspnea. Patient with recent positive test for COVID-19. Patient is unvaccinated. Patient with BiPAP on and just transferred to the ICU. Patient with difficult venous access. Patient just pulled IV out. Patient with bilateral infiltrates by chest x-ray. Allergies and Home Medications Allergies Coded Allergies: No Known Drug Allergies (Unverified , 02/20/19) Patient Home Medication List Home Medication List Reviewed: Yes Azithromycin (Azithromycin) 500 Mg Tablet, 500 MG PO DAILY, (Reported) Entered as Reported by: YAZAN MANCUSO on 08/21/211228 Last Action: Reviewed Benzonatate (Tessalon Perles) 100 Mg Capsule, 200 MG PO TID PRN for COUGH, (Reported) Entered as Reported by: YAZAN MANCUSO on 08/21/211228 Last Action: Reviewed Ibuprofen (Ibuprofen) 200 Mg Capsule, 400-600 MG PO Q8H PRN for PAIN-MILD (1-4), (Reported) Entered as Reported by: YAZAN MANCUSO on 08/21/211228 Last Action: Reviewed Promethazine HCl (Promethazine Tablet) 25 Mg Tablet, 25 MG PO Q6H PRN for NAUSEA/VOMITING, (Reported) Entered as Reported by: YAZAN MANCUSO on 08/21/211228 Last Action: Reviewed Vilazodone Hydrochloride (Viibryd) 20 Mg Tablet, 20 MG PO HS, (Reported) Entered as Reported by: YAZAN MANCUSO on 11/24/21 1229 Last Action: Reviewed Discontinued Medications Aspirin (Aspirin EC) 81 Mg Tablet.dr, 81 MG PO DAILY Discontinued Reason: Duplicate Order Prescribed by: SUZANNE LINARES on 02/20/19 1053 Last Action: Discontinued Azithromycin (Azithromycin) 500 Mg Tablet, 500 MG PO DAILY Discontinued Reason: Duplicate Order Prescribed by: EZEKIEL JOY on 08/19/21 140 Last Action: Discontinued Benzonatate (Benzonatate) 200 Mg Capsule, 200 MG PO TID PRN for COUGH Discontinued Reason: Duplicate Order Prescribed by: EZEKIEL JOY on 08/19/21 140 Last Action: Discontinued Promethazine HCl (Promethazine Tablet) 25 Mg Tablet, 25 MG PO Q6H PRN for NAUSEA/VOMITING Discontinued Reason: Duplicate Order Prescribed by: EZEKIEL JOY on 08/19/21 140 Last Action: Discontinued Past Ubsdqzn-Hggkrv-Riaokj Hx Reviewed Nursing Assessment Reviewed/Agree w Nursing PMH: Yes Family Medical History Significant Family History: No Pertinent Family Hx Family Medial History: Cardiovascular disease grandparents Review of Systems-General All Other Systems Reviewed Negative Unless Noted: Yes (Negative excepted noted.) Physical Exam-General Problems Physical Exam General Appearance: mild distress, obese HEENT: normal ENT inspection Neck: non-tender, supple Respiratory: other (Patient on BIPAP with 60% FiO2, labored breathing) Cardiovascular: regular rate, rhythm, no JVD Gastrointestinal: non tender, soft Rectal: deferred Back: normal inspection Extremities: non-tender, normal inspection Neurologic/Psychiatric: alert Skin: normal color, warm/dry Lymphatic: no adenopathy Assessment/Plan Assessment/Plan Assessment/Plan Covid-19 pneumonia Poor venous access Obstructive sleep apnea Asthma Patient in ICU. Patient best option would be a PICC line to be placed. Have arranged for this to be placed. If unable to be placed will place central line. Will sign off please call if needed. Supervisory-Addendum Brief Verification & Attestation Participated in pt care: history, MDM, physical Personally performed: exam, history, MDM, supervision of care Care discussed with: Medical Student Procedures: n/a Results interpretation: Verified all documentation Verification and Attestation of Medical Student E/M Service A medical student performed and documented this service in my presence. I reviewed and verified all information documented by the medical student and made modifications to such information, when appropriate. I personally performed the physical exam and medical decision making. Qamar Liriano, Aug 21, 2021,18:37 ABEBE PLUNKETT Aug 21, 2021 07:10 QAMAR LIRIANO DO Aug 21, 2021 18:38
[2021-08-21] MEDS: polyethylene glycoL POWDER 17 GM (MIRALAX) PACK PO SCH ×2 (08:09→20:52)
[2021-08-21] MEDS: SENNA W/DOCUSATE (SENOKOT S) TABLET PO SCH ×2 (08:09→20:52)
--- NOTE | 2021-08-21 09:38 | Progress Note - Hospitalist ---
Subjective HPI/CC On Admission Date Seen by Provider: Aug 21, 2021 Time Seen by Provider: 09:30 Chief complaint: COVID-19 pneumonia with acute hypoxic respiratory failure History present illness: This is a 46-year-old unvaccinated against Covid patient of Aamir Bauman in [place] who has a past medical history of hyperten gilbert and TICO who presents to the [facility] ER with shortness of breath. He was diagnosed with Covid the day before was not hypoxic and sent home but returned today with increased shortness of breath and acute hypoxic respiratory failure requiring inpatient stay. He is currently now on 7 L and is high risk for progression. He may be in Actemra candidate. Poor IV access noted since his IV is a 24-gauge in his chest wall. Central line may be required. Checking meds and labs. Subjective/Events-last exam Patient requiring ICU transfer Increasing oxygen requirements Received Actemra due to high risk for intubation BMI of 55 is concerning for risk of decompensation Atrial fibrillation occurred consulted Dr. Ribera Check meds labs Patient appears to be a bit frightened today Willing to have ABG drawn Review of Systems General: Fatigue, Malaise Pulmonary: Dyspnea Focused Exam Lactate Level 08/20/21 15:05: Lactic Acid Level 0.81 Objective Exam Vital Signs Vital Signs Date Time Temp Pulse Resp B/P (MAP) Pulse Ox O2 Delivery O2 Flow Rate FiO2 08/22/21 03:53 36.4 NIV Bilevel 40.00 08/22/21 03:09 67 29 92 08/22/21 00:12 75 Capillary Refill : Less Than 3 Seconds General Appearance: No Apparent Distress, WD/WN, Chronically ill, Obese Respiratory: No Accessory Muscle Use, No Respiratory Distress, Decreased Breath Sounds Cardiovascular: Regular Rate, Rhythm Neurologic/Psychiatric: Alert, Oriented x3, No Motor/Sensory Deficits, Normal Mood/Affect Results/Procedures Lab Laboratory Tests 08/22/21 04:30 Patient resulted labs reviewed. Assessment/Plan Assessment and Plan Assess & Plan/Chief Complaint Assessment: Acute hypoxic respiratory failure COVID-19 pneumonia Bacterial pneumonia New onset of atrial fibrillation with rapid ventricular rate consult Dr. Ribera on 08/21/2021 TICO Morbid obesity BMI 55 Poor venous access Plan: Oxygen supplementation Cardiac stepdown High risk for intubation Actemra may be an option IV access 08/21/2021: Covid protocol ICU transfer Actemra given Vapotherm and BiPAP PICC line High risk for intubation Diagnosis/Problems Diagnosis/Problems (1) Pneumonia due to COVID-19 virus Status: Acute (2) Respiratory failure, acute Status: Acute Qualifiers: Respiratory failure complication: hypoxia Qualified Codes: J96.01 - Acute respiratory failure with hypoxia JENNIFER DOLL DO Aug 21, 2021 09:38
--- NOTE | 2021-08-21 09:52 | Tele-ICU Consult ---
History of Present Illness History of Present Illness Date Seen by Provider: Aug 21, 2021 Time Seen by Provider: 09:52 Date of Admission Allergies and Home Medications Allergies Coded Allergies: No Known Drug Allergies (Unverified , 02/20/19) Home Medications Aspirin 81 Mg Tablet.dr, 81 MG PO DAILY Prescribed by: SUZANNE LINARES on 02/20/19 1053 Azithromycin 500 Mg Tablet, 500 MG PO DAILY Prescribed by: EZEKIEL JOY on 08/19/21 1401 Benzonatate 200 Mg Capsule, 200 MG PO TID PRN for COUGH Prescribed by: EZEKIEL JOY on 08/19/21 1401 Promethazine HCl 25 Mg Tablet, 25 MG PO Q6H PRN for NAUSEA/VOMITING Prescribed by: EZEKIEL JOY on 08/19/21 1401 Past Medical/Social/Family Hx Patient Social History Marrital Status: cohabiting Employed/Student: employed (tow car driver) Tobacco Use?: No Smoking Status: Never a Smoker Smokeless Tobacco Frequency: Never a User Use of E-Cig and/or Vaping dev: No Substance use?: No Alcohol Use?: No Pt stated abuse/neglect: No Immunizations Up To Date Influenza Vaccine Up-to-Date: No; Not Current Current Status Advance Directives: No Communicates: Verbally Primary Language: German Preferred Spoken Language: German Is interpretation needed?: No Implanted or Applied Medical D: None Review of Systems Constitutional: see HPI Sepsis Event Evaluation Height, Weight, BMI Height: 5'9.00" Weight: 358lbs. 8.0oz. 162.113033pk; 55.85 BMI Method:Stated Exam Exam Patient acknowledged, consented, and participated in this virtual visit which was conducted using real time audio/video Vital Signs Date Time Temp Pulse Resp B/P (MAP) Pulse Ox O2 Delivery O2 Flow Rate FiO2 08/21/21 07:00 86 08/21/21 07:00 08/21/21 06:30 36.6 85 93 60 08/21/21 06:30 79 20 93 NIV CPAP 600.00 08/21/21 06:27 85 19 93 60.00 08/21/21 06:19 93 High Flow N/C 10.00 08/21/21 06:19 88 Vapotherm 40.00 100 08/21/21 06:12 High Flow N/C 10.00 08/21/21 04:00 98 NIV CPAP 40 08/21/21 04:00 70 22 143/73 (96) 97 NIV CPAP 40.00 08/21/21 03:21 68 25 100 35.00 08/21/21 03:13 95 NIV CPAP 40 08/21/21 01:00 77 08/21/21 00:03 65 22 95 40.00 08/21/21 00:00 95 High Flow N/C 7.00 08/21/21 00:00 98 NIV CPAP 08/21/21 00:00 36.6 58 17 147/76 (99) 99 NIV CPAP 08/20/21 22:50 36.9 73 91 08/20/21 20:29 73 24 141/88 (105) 91 High Flow N/C 7.00 08/20/21 20:00 36.9 08/20/21 20:00 91 High Flow N/C 7.00 08/20/21 19:00 50 08/20/21 18:37 91 High Flow N/C 7.00 08/20/21 18:23 86 08/20/21 18:17 81 21 148/82 (104) 91 High Flow N/C 7.00 08/20/21 17:04 36.2 92 20 116/67 92 Room Air 08/20/21 15:18 37.0 101 30 227/84 (131) 83 Room Air 08/20/21 14:50 Room Air I & O 08/21/21 06:59 Intake Total 1150 ml Output Total 1400 ml Balance -250 ml Height & Weight Height: 5'9.00" Weight: 358lbs. 8.0oz. 162.651651wp; 55.85 BMI Method:Stated General Appearance: No Apparent Distress, Anxious, Chronically ill, Mild D istress HEENT: PERRL/EOMI, Normal ENT Inspection, Pharynx Normal, Moist Mucous Membranes Neck: Full Range of Motion, Normal Inspection, Non Tender Respiratory: Chest Non Tender, Lungs Clear, No Accessory Muscle Use, No Respiratory Distress, Decreased Breath Sounds Cardiovascular: Regular Rate, Rhythm, No Edema, No Gallop, No JVD, No Murmur, Normal Peripheral Pulses Capillary Refill: Less Than 3 Seconds Peripheral Pulses: 2+ Radial Pulses (R), 2+ Radial Pulses (L) Gastrointestinal: non tender, soft Extremity: Normal Capillary Refill, Normal Inspection, Normal Range of Motion, Non Tender, No Calf Tenderness, No Pedal Edema Neurologic/Psychiatric: Alert, Oriented x3, No Motor/Sensory Deficits, Normal Mood/Affect Skin: Normal Color, Warm/Dry Lymphatic: No Adenopathy Results Lab Laboratory Tests 08/20/21 15:05 08/21/21 05:36 Assessment/Plan Assessment/Plan Tele-ICU Physician , consultation) Available chart/ vitals / labs / Images reviewed H&P is from ER notes Patient's information available about PMH, Shx, Fhx allergy reviewed in EMR. ROS as per chart and RN report Now in ICU, hemodynamically stable Video assessment done using teleICU camera, rest of exam as per RN Discussed with RN. Consultants: Hospital course: 08/19- + covid 08/20 - admitted 08/21 - to ICU with CPAP A/P AHRF / ARDS due to severe COVID19 - on CPAP 18 cm, 35 % -prone position if able - conservative fluid strategy (aim for even or negative fluid balance -High risk for intubation [id number]-7/COVID-19 PNA ( DX unvaccinted --Dexamethasone -- Cytokine release syndrome s/p [id number]/ 24 , (will start tomorrow Acyclovir for HSV/VZV prophylaxis after Tocilizumab- 30 days 400 po bid ) -Hypercoagulable state , DDIMER= WNL on 08/19 -> lovenox ppx dose ,= > follow given worsenign ddim ( no evidence of large PE on CT 08/19) Suspected superimposed bact PNA -empiric abx started on 08/20 Asthma - br-dil , steroids IV Hyperglycemia - on steroids - ISS TICO- nocturnal BIPAP Morbid ovesity Lines : (Central Line Necessity Reviewed) Doty: OG: Nutrition: Analgesia: Anxiety/ delirium VTE Prophylaxis: lovenox Stress Ulcer Prophylaxis: Po intake Plans in collaboration with bedside consultants and IM MDs. Discussed with RN to reach out if any questions or concerns A total of 32 minutes of critical care time was devoted to this patient today, required to treat and/or prevent further deterioration of critical care condition ( as above ) . MILTON ROGEL MD Aug 21, 2021 09:52
[2021-08-21] MEDS: inSUlin ASPART (NovoLOG) 1 UNIT/0.01 ML (CHARGE PER UNIT) SC SCH ×3 (11:00→20:52)
[2021-08-21] MEDS: RT-ALBUTEROL HFA 8.5 GM INHALER IH SCH ×4 (11:10→22:54)
[2021-08-21] MEDS ORDERED: IBUP-2185 PO (12:29)
[2021-08-21] MEDS ORDERED: BENZ100C18 PO (12:29)
[2021-08-21] MEDS ORDERED: AZIT500T9 PO (12:29)
[2021-08-21] MEDS ORDERED: VILA20TA PO (12:29)
[2021-08-21] MEDS ORDERED: PROM25TA14 PO (12:29)
[2021-08-21] MEDS ORDERED: dilTIAZem DRIP PRE-MIX 125 ML IV ONE (14:15)
[2021-08-21] MEDS: dilTIAZem DRIP PRE-MIX 125 ML IV SCH (14:22)
--- NOTE | 2021-08-21 14:51 | Consultation-Cardiology ---
HPI-Cardiology Cardiology Consultation Date of Consultation 08/21/21 Date of Admission Time Seen by Provider: 14:47 Indication: Atrial fibrillation HPI 46 years old gentleman with history of obesity, sleep apnea, admitted with COVID-19 pneumonia, was having increasing shortness of breath which has been worsening. This afternoon he converted to atrial fibrillation with borderline tachycardia. He is laying down in bed. No chest pain was reported, having shortness of breath. Seem to Home Medications & Allergies Allergies: Coded Allergies: No Known Drug Allergies (Unverified , 02/20/19) Home Medication List Reviewed: Yes [id number]-[id number]-Atxtbr Hx Patient Social History Marital Status: cohabiting Employed/Student: employed (courtesy bus driver) Smoking Status: Never a Smoker 2nd Hand Smoke Exposure: No Recent Hopitalizations: No Have you traveled recently?: No Alcohol Use?: No Past Medical History Discussed with Family Medical History Family Medical Hx Noncontributory Family History: Cardiovascular disease grandparents Review of Systems-General Review of Systems Constitutional: see HPI, malaise, weakness EENTM: No ear pain, No blurred vision Respiratory: dyspnea on exertion, short of breath Cardiovascular: No chest pain, No edema Gastrointestinal: No diarrhea, No nausea, No vomiting Genitourinary: No dysuria, No frequency Musculoskeletal: No muscle pain, No muscle stiffness Skin: No change in color, No change in hair/nails Psychiatric/Neurological: Denies Headache, Denies Paresthesia All Other Systems Reviewed Negative Unless Noted: Yes Reviewed Test Results Reviewed Test Results Lab Laboratory Tests Test 08/20/21 15:05 08/20/21 15:08 08/20/21 17:00 08/20/21 18:45 Range/Units White Blood Count 7.3 4.3-11.0 10^3/uL Red Blood Count 4.54 4.30-5.52 10^6/uL Hemoglobin 13.4 13.3-17.7 g/dL Hematocrit 40 40-54 % Mean Corpuscular Volume 88 80-99 fL Mean Corpuscular Hemoglobin 30 25-34 pg Mean Corpuscular Hemoglobin Concent 33 32-36 g/dL Red Cell Distribution Width 13.3 10.0-14.5 % Platelet Count 230 130-400 10^3/uL Mean Platelet Volume 9.9 9.0-12.2 fL Immature Granulocyte % (Auto) 1 % Neutrophils (%) (Auto) 77 H 42-75 % Lymphocytes (%) (Auto) 20 12-44 % Monocytes (%) (Auto) 3 0-12 % Eosinophils (%) (Auto) 0 0-10 % Basophils (%) (Auto) 0 0-10 % Neutrophils # (Auto) 5.6 1.8-7.8 X 10^3 Lymphocytes # (Auto) 1.4 1.0-4.0 X 10^3 Monocytes # (Auto) 0.2 0.0-1.0 X 10^3 Eosinophils # (Auto) 0.0 0.0-0.3 10^3/uL Basophils # (Auto) 0.0 0.0-0.1 10^3/uL Immature Granulocyte # (Auto) 0.1 0.0-0.1 10^3/uL Sodium Level 133 L 135-145 MMOL/L Potassium Level 3.8 3.6-5.0 MMOL/L Chloride Level 100 98-107 MMOL/L Carbon Dioxide Level 20 L 21-32 MMOL/L Anion Gap 13 5-14 MMOL/L Blood Urea Nitrogen 13 7-18 MG/DL Creatinine 1.03 0.60-1.30 MG/DL Estimat Glomerular Filtration Rate 78 BUN/Creatinine Ratio 13 Glucose Level 132 H 70-105 MG/DL Lactic Acid Level 0.81 0.50-2.00 MMOL/L Calcium Level 8.7 8.5-10.1 MG/DL Corrected Calcium 9.3 8.5-10.1 MG/DL Total Bilirubin 0.3 0.1-1.0 MG/DL Aspartate Amino Transf (AST/SGOT) 35 H 5-34 U/L Alanine Aminotransferase (ALT/SGPT) 32 0-55 U/L Alkaline Phosphatase 77 40-136 U/L Troponin I < 0.30 <0.30 NG/ML Pro-B-Type Natriuretic Peptide 146.4 H <75.0 PG/ML Total Protein 7.1 6.4-8.2 GM/DL Albumin 3.3 3.2-4.5 GM/DL Blood Gas Puncture Site LT. RADIAL Blood Gas Patient Temperature 37 Arterial Blood pH 7.42 7.37-7.43 Arterial Blood Partial Pressure CO2 37 35-45 MMHG Arterial Blood Partial Pressure O2 62 L 79-93 MMHG Arterial Blood HCO3 24 23-27 MMOL/L Arterial Blood Total CO2 25.1 21.0-31.0 MMOL/L Arterial Blood Oxygen Saturation 92 L 94-100 % Arterial Blood Base Excess -0.2 -2.5-2.5 MMOL/L Freddie Test YES-POS Blood Gas Ventilator Setting NO Blood Gas Inspired Oxygen 94% @ 3L Procalcitonin 0.08 <0.10 NG/ML Test 08/21/21 05:36 08/21/21 06:58 08/21/21 10:21 Range/Units White Blood Count 7.7 4.3-11.0 10^3/uL Red Blood Count 4.44 4.30-5.52 10^6/uL Hemoglobin 13.2 L 13.3-17.7 g/dL Hematocrit 41 40-54 % Mean Corpuscular Volume 91 80-99 fL Mean Corpuscular Hemoglobin 30 25-34 pg Mean Corpuscular Hemoglobin Concent 33 32-36 g/dL Red Cell Distribution Width 13.3 10.0-14.5 % Platelet Count 229 130-400 10^3/uL Mean Platelet Volume 10.0 9.0-12.2 fL Immature Granulocyte % (Auto) 0 % Neutrophils (%) (Auto) 86 H 42-75 % Lymphocytes (%) (Auto) 11 L 12-44 % Monocytes (%) (Auto) 3 0-12 % Eosinophils (%) (Auto) 0 0-10 % Basophils (%) (Auto) 0 0-10 % Neutrophils # (Auto) 6.6 1.8-7.8 10^3/uL Lymphocytes # (Auto) 0.8 L 1.0-4.0 10^3/uL Monocytes # (Auto) 0.3 0.0-1.0 10^3/uL Eosinophils # (Auto) 0.0 0.0-0.3 10^3/uL Basophils # (Auto) 0.0 0.0-0.1 10^3/uL Immature Granulocyte # (Auto) 0.0 0.0-0.1 10^3/uL Sodium Level 138 135-145 MMOL/L Potassium Level 4.5 3.6-5.0 MMOL/L Chloride Level 106 98-107 MMOL/L Carbon Dioxide Level 21 21-32 MMOL/L Anion Gap 11 5-14 MMOL/L Blood Urea Nitrogen 13 7-18 MG/DL Creatinine 0.90 0.60-1.30 MG/DL Estimat Glomerular Filtration Rate 91 BUN/Creatinine Ratio 14 Glucose Level 128 H 70-105 MG/DL Calcium Level 8.6 8.5-10.1 MG/DL Corrected Calcium 9.2 8.5-10.1 MG/DL Total Bilirubin 0.3 0.1-1.0 MG/DL Aspartate Amino Transf (AST/SGOT) 38 H 5-34 U/L Alanine Aminotransferase (ALT/SGPT) 28 0-55 U/L Alkaline Phosphatase 63 40-136 U/L Total Protein 6.8 6.4-8.2 GM/DL Albumin 3.3 3.2-4.5 GM/DL Blood Gas Puncture Site L RAD Blood Gas Patient Temperature 98.3 Arterial Blood pH 7.36 L 7.37-7.43 Arterial Blood Partial Pressure CO2 42 35-45 MMHG Arterial Blood Partial Pressure O2 69 L 79-93 MMHG Arterial Blood HCO3 23 23-27 MMOL/L Arterial Blood Total CO2 24.6 21.0-31.0 MMOL/L Arterial Blood Oxygen Saturation 93 L 94-100 % Arterial Blood Base Excess -1.4 -2.5-2.5 MMOL/L Freddie Test YES-POS Blood Gas Ventilator Setting NO Blood Gas Inspired Oxygen 60% Glucometer 119 H 70-110 MG/DL Radiology NAME: URSULA ALSTON [facility] REC#: [id number] PT STATUS: ADM IN : 1975 PHYSICIAN: JENNIFER DOLL DO ADMIT DATE: 08/20/21/[facility] Draft Date of Exam:08/21/21 CHEST 1 VIEW, AP/PA ONLY Indication: COVID pneumonia Upright portable chest shows cardiomegaly. There are bilateral infiltrates similar to the 08/20/2021 study. There is no effusion or pneumothorax. IMPRESSION: Persistent bilateral infiltrates. Report was faxed to [facility] by antonio at 6:44AM. Dictated on workstation # [id number] Dict: 08/21/2128 Trans: 08/21/2144 ANTONIO [id number] Interpreted by: MARYAM BALTAZAR MD Electronically signed by: Physical Exam Physical Exam Vital Signs Vital Signs - First Documented 08/20/21 08/20/21 08/20/21 08/21/21 14:50 15:18 18:17 03:13 Temp 37.0 Pulse 101 Resp 30 B/P (MAP) 227/84 (131) Pulse Ox 83 O2 Delivery Room Air O2 Flow Rate 7.00 FiO2 40 Capillary Refill : Less Than 3 Seconds Height, Weight, BMI Height: 5'9.00" Weight: 358lbs. 8.0oz. 162.451726ht; 55.85 BMI Method:Stated General Appearance: Anxious, Chronically ill, Mild Distress Eyes: Right Eye Normal Inspection, Right Eye PERRL HEENT: Normal ENT Inspection, Pharynx Normal, Moist Mucous Membranes Neck: Full Range of Motion, Normal Inspection, Non Tender Respiratory: Other Cardiovascular: Irregularly Irregular, Tachycardia Back: Normal Inspection Extremity: Normal Inspection Neurologic/Psychiatric: Alert Skin: Normal Color, Warm/Dry Lymphatic: No Adenopathy A/P-Cardiology Admission Diagnosis Atrial fibrillation with rapid ventricular response COVID-19 pneumonia Acute respiratory failure COPD Assessment/Plan Atrial fibrillation with rapid ventricular response probably secondary to hypoxemia, questionable history of paroxysmal atrial fibrillation in the past. Does not have reported arrhythmia in the past. I will start him on Cardizem bolus and a drip Continue on Lovenox 1 mg/kg subcu twice daily and monitor tolerance and response COVID-19 pneumonia, received Acterma, receiving Decadron, maintained on oxygen. Patient did not receive the vaccine. Acute respiratory failure, requiring high-dose oxygen, continue with aggressive treatment and oxygenation monitor tolerance and response Hypertension, monitor blood pressure while on Cardizem drip Obesity, BMI 54 increased risk of complication Obstructive sleep apnea. SUZANNE LINARES MD Aug 21, 2021 14:51
[2021-08-21] MEDS: AZITHROMYCIN INJECTION 250 MG in NS (IVPB) 250 ML IV SCH (17:54)
[2021-08-22] VITALS (20 sets, daily range): BP systolic 92–138; BP diastolic 50–105
[2021-08-22] MEDS: dilTIAZem DRIP PRE-MIX 125 ML IV SCH ×2 (00:46→21:57)
[2021-08-22] MEDS: CEFEPIME INJECTION 1,000 MG in NS (IVPB) 50 ML IV SCH ×4 (00:46→18:28)
[2021-08-22] MEDS: RT-ALBUTEROL HFA 8.5 GM INHALER IH SCH ×6 (03:09→22:26)
[2021-08-22 04:55] LABS: BASOPHILS % (AUTO) 0 % (0-10); EOSINOPHILS % (AUTO) 0 % (0-10); HEMATOCRIT 42 % (40-54); HEMOGLOBIN 13.8 g/dL (13.3-17.7); LYMPHOCYTES # (AUTO) 1.1 10^3/uL (1.0-4.0); LYMPHOCYTES % (AUTO) 13 % (12-44); MEAN CORPUSCULAR HEMOGLOBIN 30 pg (25-34); MEAN CORPUSCULAR HGB CONC 33 g/dL (32-36); MEAN CORPUSCULAR VOLUME 91 fL (80-99); MONOCYTES # (AUTO) 0.3 10^3/uL (0.0-1.0); MONOCYTES % (AUTO) 4 % (0-12); NEUTROPHILS # (AUTO) 7.5 10^3/uL (1.8-7.8); NEUTROPHILS % (AUTO) 84 % (42-75); PLATELET COUNT 263 10^3/uL (130-400); WHITE BLOOD COUNT 8.9 10^3/uL (4.3-11.0)
[2021-08-22 05:12] LABS: ALBUMIN 3.3 GM/DL (3.2-4.5); POTASSIUM 4.2 MMOL/L (3.6-5.0)
[2021-08-22 05:13] LABS: CALCIUM 8.6 MG/DL (8.5-10.1)
[2021-08-22 05:15] LABS: TOTAL PROTEIN 6.7 GM/DL (6.4-8.2)
[2021-08-22 05:16] LABS: BILIRUBIN,TOTAL 0.3 MG/DL (0.1-1.0)
[2021-08-22 05:18] LABS: CREATININE SERUM 0.85 MG/DL (0.60-1.30); PHOSPHORUS 3.1 MG/DL (2.3-4.7)
[2021-08-22 05:21] LABS: MAGNESIUM 1.9 MG/DL (1.6-2.4)
[2021-08-22] MEDS: inSUlin ASPART (NovoLOG) 1 UNIT/0.01 ML (CHARGE PER UNIT) SC SCH ×4 (06:05→21:56)
[2021-08-22] MEDS: ENOXAPARIN 60 MG/0.6 ML (LOVENOX) SYR SC SCH (06:20)
[2021-08-22] MEDS ORDERED: ENOXAPARIN 100 MG/1 ML (LOVENOX) SYR SC ONE (08:30)
[2021-08-22] MEDS: polyethylene glycoL POWDER 17 GM (MIRALAX) PACK PO SCH ×2 (08:38→21:56)
[2021-08-22] MEDS: SENNA W/DOCUSATE (SENOKOT S) TABLET PO SCH ×2 (08:38→21:56)
--- NOTE | 2021-08-22 09:03 | Tele-ICU Progress Note ---
Subjective Date Seen by a Provider: Aug 22, 2021 Time Seen by a Provider: 08:00 Subjective/Events-last exam This virtual visit was conducted using real time audio/video. Thank you for asking us to see this patient for respiratory insufficiency due to Covid pna. Recent events: Afib noon 08/21/21. PE: VSS. HR 65 afib. O2 sat 95% on VT 100. HEENT: No obvious masses, adenopathy or JVD. Chest: clear to auscultation. CV: Irreg. S1 S2 No murmur or added sounds. Abd: Non-tender. Bowel sounds Y. : Unremarkable. Doty N. APPLICATIONS ARCHITECT/psychiatric: Grossly intact. No obvious focal findings. Extremities: No edema. Capillary refill < 3 seconds. Skin: unremarkable. Results: Elevated BG 132. B.36/42/69. CXR: B infilts.. Available chart/ vitals / labs / images reviewed. Video assessment done using teleICU camera, rest of exam as per RN. A/P: Respiratory insufficiency: Continue present management with VT, alb., Dex. Monitor for increasing oxygenation needs and/or need for intubation. Critical Care: critically ill patient. Cont. Dilt., Vamsi., SSI, abx. Discussed with RN Jewel. Asked RN to reach out to eICU if any questions or concerns later. Time spent with patient/coordination of care with other health professionals (mins): 25 Sepsis Event Evaluation Height, Weight, BMI Height: 5'9.00" Weight: 358lbs. 8.0oz. 162.049059wn; 55.85 BMI Method:Stated Focused Exam Lactate Level 08/20/21 15:05: Lactic Acid Level 0.81 Exam Exam Patient acknowledged, consented, and participated in this virtual visit which was conducted using real time audio/video Vital Signs Date Time Temp Pulse Resp B/P (MAP) Pulse Ox O2 Delivery O2 Flow Rate FiO2 08/22/21 08:00 84 33 138/50 (79) 91 NIV Bilevel 40.00 08/22/21 07:57 92 Vapotherm 30.00 75 08/22/21 07:00 63 13 119/76 (90) 93 NIV Bilevel 40.00 08/22/21 07:00 76 08/22/21 06:00 77 18 92 NIV Bilevel 40.00 08/22/21 05:00 62 22 97 NIV Bilevel 40.00 08/22/21 04:00 80 12 94/77 (83) 95 NIV Bilevel 40.00 08/22/21 04:00 95 NIV Bilevel 40 08/22/21 03:53 36.4 NIV Bilevel 40.00 08/22/21 03:09 67 29 92 40.00 08/22/21 03:00 71 17 93 NIV Bilevel 40.00 08/22/21 02:00 72 37 97 NIV Bilevel 40.00 08/22/21 01:00 70 08/22/21 01:00 73 22 115/70 (85) 99 NIV Bilevel 40.00 08/22/21 00:12 93 Vapotherm 30.00 75 08/22/21 00:00 68 28 112/75 (87) 93 NIV Bilevel 40.00 08/22/21 00:00 NIV Bilevel 40.00 08/21/21 23:02 78 23 97 35.00 08/21/21 23:00 36.6 Vapotherm 30.00 75.00 08/21/21 23:00 84 34 96/56 (69) 91 Vapotherm 30.00 75.00 08/21/21 23:00 84 34 96/56 91 Vapotherm 30.00 75.00 08/21/21 22:54 90 Vapotherm 30.00 75 08/21/21 22:00 66 10 103/78 (86) 95 Vapotherm 30.00 75.00 08/21/21 22:00 66 10 103/78 95 Vapotherm 30.00 75.00 08/21/21 21:00 73 23 102/76 94 Vapotherm 30.00 75.00 08/21/21 21:00 73 23 102/76 (85) 94 Vapotherm 30.00 75.00 08/21/21 20:00 36.4 08/21/21 20:00 95 Vapotherm 30.00 75 08/21/21 20:00 93 40 106/62 93 Vapotherm 30.00 75.00 08/21/21 20:00 93 40 106/62 (77) 93 Vapotherm 30.00 75.00 08/21/21 19:12 94 Vapotherm 30.00 75 08/21/21 19:00 37.3 Vapotherm 30.00 75.00 08/21/21 19:00 83 21 114/72 92 Vapotherm 30.00 75.00 08/21/21 19:00 36.6 Vapotherm 30.00 75.00 08/21/21 19:00 105 08/21/21 19:00 83 21 114/72 (86) 92 Vapotherm 30.00 75.00 08/21/21 18:00 96 28 110/60 (77) 96 Vapotherm 30.00 75.00 08/21/21 17:00 112 32 123/82 (96) 92 Vapotherm 30.00 75.00 08/21/21 16:00 94 Vapotherm 75 08/21/21 16:00 109 17 111/76 (88) 98 Vapotherm 30.00 75.00 08/21/21 15:53 37.1 08/21/21 15:00 108 21 116/72 (87) 98 Vapotherm 30.00 75.00 08/21/21 14:44 Vapotherm 30.00 75.00 08/21/21 14:30 93 Vapotherm 30.00 75 08/21/21 14:00 81 27 112/67 (82) 94 Vapotherm 30.00 85.00 08/21/21 13:00 93 15 109/98 (102) 97 Vapotherm 30.00 85.00 08/21/21 12:39 116 08/21/21 12:00 Vapotherm 30.00 85.00 08/21/21 12:00 96 Vapotherm 85 08/21/21 11:12 92 Vapotherm 30.00 80 08/21/21 11:11 67 25 95 35.00 08/21/21 11:00 76 23 112/60 (77) 93 NIV CPAP 35.00 08/21/21 10:00 65 22 125/74 (91) 96 NIV CPAP 35.00 08/21/21 09:30 73 21 118/67 (86) 94 NIV CPAP 35.00 08/21/21 09:00 75 21 129/77 (94) 94 NIV CPAP 35.00 I & O 08/22/21 07:00 Intake Total 2545 ml Output Total 4100 ml Balance -1555 ml Height & Weight Height: 5'9.00" Weight: 358lbs. 8.0oz. 162.923649cw; 55.85 BMI Method:Stated General Appearance: No Apparent Distress (See free text), WD/WN, Chronically ill, Obese HEENT: Normal ENT Inspection, Pharynx Normal, Moist Mucous Membranes Neck: Full Range of Motion, Normal Inspection, Non Tender Respiratory: No Accessory Muscle Use, No Respiratory Distress, Decreased Breath Sounds Cardiovascular: Regular Rate, Rhythm Capillary Refill: Less Than 3 Seconds Peripheral Pulses: 2+ Radial Pulses (R), 2+ Radial Pulses (L) Gastrointestinal: non tender, soft Extremity: Normal Inspection Neurologic/Psychiatric: Alert, Oriented x3, No Motor/Sensory Deficits, Normal Mood/Affect Skin: Normal Color, Warm/Dry Lymphatic: No Adenopathy Results Lab Laboratory Tests 08/20/21 15:05 08/21/21 05:36 08/22/21 04:30 Assessment/Plan Assessment/Plan See free text Critical Care: Critically Ill Patient JAGRUTI SANCHEZ MD Aug 22, 2021 09:03
--- NOTE | 2021-08-22 09:03 | Cardiology Progress Note ---
Subjective Date Seen by Provider: Aug 22, 2021 Time Seen by Provider: 09:01 Subjective/Events-last exam Patient was seen at bedside, laying down comfortably Maintained on Vapotherm. I visited with his nurse and discussed his management plan. Focused Exam Lactate Level 08/20/21 15:05: Lactic Acid Level 0.81 Objective-Cardiology Exam Last Set of Vital Signs Vital Signs 08/22/21 08/22/21 08/22/21 03:53 07:57 08:00 Temp 36.4 Pulse 84 Resp 33 B/P (MAP) 138/50 (79) Pulse Ox 91 O2 Delivery NIV Bilevel O2 Flow Rate 40.00 FiO2 75 I&O Intake and Output 08/22/21 00:00 Intake Total 2450 ml Output Total 4300 ml Balance -1850 ml Intake Oral 2450 ml Output Urine Total 4300 ml General: Alert, Oriented X3, Cooperative HEENT: Atraumatic Heart: Other (Atrial fibrillation) Extremities: No Clubbing, No Cyanosis Skin: No Rashes Neuro: Normal Speech Results Lab Laboratory Tests 08/22/21 04:30 A/P-Cardiology Admission Diagnosis Atrial fibrillation with rapid ventricular response COVID-19 pneumonia Acute respiratory failure COPD Assessment/Plan Atrial fibrillation with rapid ventricular response probably secondary to hypoxemia, questionable history of paroxysmal atrial fibrillation in the past. Does not have reported arrhythmia in the past. Heart rate is better controlled on Cardizem drip. I will maintain him on Cardizem drip Patient was receiving low-dose Lovenox, I have changed it to therapeutic dose with 1 mg/kg twice a day to reduce the risk of stroke COVID-19 pneumonia, received Acterma, receiving Decadron, maintained on oxygen. Patient did not receive the vaccine. Acute respiratory failure, requiring high-dose oxygen, continue with aggressive treatment and oxygenation monitor tolerance and response Hypertension, monitor blood pressure while on Cardizem drip Obesity, BMI 54 increased risk of complication Obstructive sleep apnea. SUZANNE LINARES MD Aug 22, 2021 09:03
[2021-08-22] MEDS: AZITHROMYCIN INJECTION 250 MG in NS (IVPB) 250 ML IV SCH (18:28)
--- NOTE | 2021-08-22 19:28 | Progress Note - Hospitalist ---
Subjective HPI/CC On Admission Date Seen by Provider: Aug 22, 2021 Time Seen by Provider: 09:45 Chief complaint: COVID-19 pneumonia with acute hypoxic respiratory failure History present illness: This is a 46-year-old unvaccinated against Covid patient of Aamir Bauman in [place] who has a past medical history of hyperten gilbert and TICO who presents to the [place] ER with shortness of breath. He was diagnosed with Covid the day before was not hypoxic and sent home but returned today with increased shortness of breath and acute hypoxic respiratory failure requiring inpatient stay. He is currently now on 7 L and is high risk for progression. He may be in Actemra candidate. Poor IV access noted since his IV is a 24-gauge in his chest wall. Central line may be required. Checking meds and labs. Subjective/Events-last exam He is feeling about the same. He is still short of breath. He still has a cough. He denies fevers and chills. He denies chest pain. His appetite is still good. He has no nausea or diarrhea. Focused Exam Lactate Level 08/20/21 15:05: Lactic Acid Level 0.81 Objective Exam Vital Signs Vital Signs Date Time Temp Pulse Resp B/P (MAP) Pulse Ox O2 Delivery O2 Flow Rate FiO2 08/22/21 19:00 99 08/22/21 18:58 21 90 60.00 08/22/21 18:00 132/105 (114) Vapotherm 08/22/21 16:00 100 08/22/21 12:00 36.1 Capillary Refill : Less Than 3 Seconds General Appearance: No Apparent Distress, Obese Respiratory: No Respiratory Distress, Decreased Breath Sounds, Other (wearing Vapotherm) Cardiovascular: No Edema, No Murmur, Irregularly Irregular Gastrointestinal: Normal Bowel Sounds, Non Tender, Soft Extremity: Normal Inspection, Non Tender, No Pedal Edema Neurologic/Psychiatric: Alert, Oriented x3, No Motor/Sensory Deficits, Normal Mood/Affect Skin: Normal Color, Warm/Dry Results/Procedures Lab Laboratory Tests 08/22/21 04:30 Patient resulted labs reviewed. Imaging: Reviewed Imaging Report Assessment/Plan Assessment and Plan Assess & Plan/Chief Complaint Acute respiratory failure due to COVID-19 Secondary bacterial pneumonia TeleICU following Supplemental oxygen as needed, requiring Vapotherm/BiPAP Decadron s/p Actemra 08/21 IV antibiotics New onset AFib with RVR Cardiology following IV Cardizem Lovenox Super obesity Clinically significant, no acute management needs Critical Care Critically Ill Patient Diagnosis/Problems Diagnosis/Problems (1) Acute respiratory failure due to COVID-19 Status: Acute (2) Secondary bacterial pneumonia Status: Acute (3) Atrial fibrillation with RVR Status: Acute (4) Super obesity Status: Chronic MCKAYLA DURÁN MD Aug 22, 2021 19:28
[2021-08-22] MEDS: ENOXAPARIN 300 MG/3 ML (LOVENOX) MULTI-DOSE VIAL SQ SCH (21:57)
[2021-08-23] VITALS (25 sets, daily range): BP systolic 86–121; BP diastolic 63–93
[2021-08-23] MEDS: RT-ALBUTEROL HFA 8.5 GM INHALER IH SCH ×6 (02:49→22:52)
[2021-08-23 05:40] LABS: BASOPHILS % (AUTO) 0 % (0-10); EOSINOPHILS % (AUTO) 0 % (0-10); HEMATOCRIT 44 % (40-54); HEMOGLOBIN 14.5 g/dL (13.3-17.7); LYMPHOCYTES # (AUTO) 1.3 10^3/uL (1.0-4.0); LYMPHOCYTES % (AUTO) 10 % (12-44); MEAN CORPUSCULAR HEMOGLOBIN 30 pg (25-34); MEAN CORPUSCULAR HGB CONC 33 g/dL (32-36); MEAN CORPUSCULAR VOLUME 91 fL (80-99); MEAN PLATELET VOLUME 9.9 fL (9.0-12.2); MONOCYTES # (AUTO) 0.5 10^3/uL (0.0-1.0); MONOCYTES % (AUTO) 4 % (0-12); NEUTROPHILS # (AUTO) 11.1 10^3/uL (1.8-7.8); NEUTROPHILS % (AUTO) 86 % (42-75); PLATELET COUNT 293 10^3/uL (130-400)
[2021-08-23 05:55] LABS: ALBUMIN 3.3 GM/DL (3.2-4.5); POTASSIUM 4.7 MMOL/L (3.6-5.0)
[2021-08-23 05:57] LABS: CALCIUM 8.6 MG/DL (8.5-10.1)
[2021-08-23 05:58] LABS: TOTAL PROTEIN 6.7 GM/DL (6.4-8.2)
[2021-08-23 05:59] LABS: BILIRUBIN,TOTAL 0.4 MG/DL (0.1-1.0)
[2021-08-23 06:01] LABS: CREATININE SERUM 0.8 MG/DL (0.60-1.30); PHOSPHORUS 3.1 MG/DL (2.3-4.7)
[2021-08-23] MEDS: inSUlin ASPART (NovoLOG) 1 UNIT/0.01 ML (CHARGE PER UNIT) SC SCH ×4 (07:30→22:26)
[2021-08-23] MEDS: CEFEPIME INJECTION 1,000 MG in NS (IVPB) 50 ML IV SCH ×5 (07:31→17:09)
--- NOTE | 2021-08-23 07:47 | Tele-ICU Progress Note ---
Progress Note Pt chart and video review. COVID + since 08/16, ED [facility] 08/19 PMHx TICO, asthma, obesity + nocturnal CPAP use chronic CTA ABD/Pelvis and Chest done 08/19 CTA IMPRESSION: 1. No evidence of pulmonary embolism or acute aortic disease. 2. Pulmonary infiltrates, consistent with pneumonia. 08/19 CT Abd/pelvis: IMPRESSION: No acute feature in the abdomen or pelvis is identified. Returned [facility] 08/20 and transferred to [facility]- to ICU on 08/21- Decadron. cefepime, albuterol, s/p Actemra. on CPAP 18, 50%FiO2 , new afib while in hospital- Catdiol following- IV diltiazem drip, Lovenox 150 mg BID Alert, texting- sats 97% HR 72 afib, RR 26 BP 116/81 CXR 08/21 bilateral infiltrates c/w covid- procal was not elevated AM Labs reviewed , Cons notes reviewed, Continue present management Focused Exam Lactate Level 08/20/21 15:05: Lactic Acid Level 0.81 Height, Weight, BMI Height: 5'9.00" Weight: 358lbs. 8.0oz. 162.214239zf; 55.85 BMI Method:Stated MALLORY SILVER DO Aug 23, 2021 07:47
[2021-08-23] MEDS: ENOXAPARIN 300 MG/3 ML (LOVENOX) MULTI-DOSE VIAL SQ SCH ×2 (08:27→22:26)
[2021-08-23] MEDS: polyethylene glycoL POWDER 17 GM (MIRALAX) PACK PO SCH ×2 (08:27→22:26)
[2021-08-23] MEDS: SENNA W/DOCUSATE (SENOKOT S) TABLET PO SCH ×2 (08:27→22:26)
--- NOTE | 2021-08-23 10:00 | Cardiology Progress Note ---
Subjective Date Seen by Provider: Aug 23, 2021 Time Seen by Provider: 09:58 Subjective/Events-last exam Patient is laying down in bed, still in respiratory failure. Still in atrial fibrillation Review of Systems General: No Chills, No Night Sweats; Fatigue, Malaise; No Appetite, No Other HEENT: No Head Aches, No Visual Changes, No Eye Pain, No Ear Pain, No Dysphasi a, No Sinus Congestion, No Post Nasal Drip, No Sore Throat, No Other Pulmonary: Dyspnea; No Cough, No Pleuritic Chest Pain, No Other Cardiovascular: No: Chest Pain, Palpitations, Orthopnea, Paroxysmal Noc. Dyspnea, Edema, Lt Headedness, Other Focused Exam Lactate Level 08/20/21 15:05: Lactic Acid Level 0.81 Objective-Cardiology Exam Last Set of Vital Signs Vital Signs 08/23/21 08/23/21 08/23/21 08:32 09:00 09:03 Temp 37.0 Pulse 75 Resp 27 B/P (MAP) 114/71 (85) Pulse Ox 94 O2 Delivery NIV CPAP O2 Flow Rate 60.00 FiO2 50 I&O Intake and Output 08/23/21 00:00 Intake Total 2145 ml Output Total 2400 ml Balance -255 ml Intake Oral 2020 ml IV Total 125 ml Output Urine Total 2400 ml # Voids 1 General: Alert, Cooperative HEENT: Atraumatic Heart: Other (Atrial fibrillation) Extremities: No Clubbing, No Cyanosis Skin: No Rashes Results Lab Laboratory Tests 08/23/21 05:30 A/P-Cardiology Admission Diagnosis Atrial fibrillation with rapid ventricular response COVID-19 pneumonia Acute respiratory failure COPD Assessment/Plan Atrial fibrillation with rapid ventricular response probably secondary to hypoxemia, questionable history of paroxysmal atrial fibrillation in the past. Does not have reported arrhythmia in the past. Heart rate is controlled on Cardizem drip. I will maintain him on Cardizem drip in addition to Lovenox to reduce the risk of stroke COVID-19 pneumonia, received Acterma, receiving Decadron, maintained on oxygen. Patient did not receive the vaccine. Acute respiratory failure, requiring high-dose oxygen, continue with current treatment and oxygenation monitor tolerance and response Hypertension, monitor blood pressure while on Cardizem drip Obesity, BMI 54 increased risk of complication Obstructive sleep apnea. SUZANNE LINARES MD Aug 23, 2021 09:59
--- NOTE | 2021-08-23 11:07 | Progress Note - Hospitalist ---
Subjective HPI/CC On Admission Date Seen by Provider: Aug 23, 2021 Time Seen by Provider: 09:25 Chief complaint: COVID-19 pneumonia with acute hypoxic respiratory failure History present illness: This is a 46-year-old unvaccinated against Covid patient of Aamir Bauman in [place] who has a past medical history of hyperten gilbert and TICO who presents to the [place] ER with shortness of breath. He was diagnosed with Covid the day before was not hypoxic and sent home but returned today with increased shortness of breath and acute hypoxic respiratory failure requiring inpatient stay. He is currently now on 7 L and is high risk for progression. He may be in Actemra candidate. Poor IV access noted since his IV is a 24-gauge in his chest wall. Central line may be required. Checking meds and labs. Subjective/Events-last exam He is feeling better. He is not short of breath. His cough is improving. He denies fevers. He denies nausea, vomiting, and diarrhea. He has no other complaints or concerns. Focused Exam Lactate Level 08/20/21 15:05: Lactic Acid Level 0.81 Objective Exam Vital Signs Vital Signs Date Time Temp Pulse Resp B/P (MAP) Pulse Ox O2 Delivery O2 Flow Rate FiO2 08/23/21 10:52 95 Vapotherm 40.00 100.00 08/23/21 10:20 100 08/23/21 10:00 70 27 114/71 (85) 08/23/21 09:03 37.0 Capillary Refill : Less Than 3 Seconds General Appearance: No Apparent Distress, Obese Respiratory: No Respiratory Distress, Decreased Breath Sounds, Other (wearing BiPAP) Cardiovascular: No Murmur, Irregularly Irregular Gastrointestinal: Normal Bowel Sounds, Non Tender, Soft Extremity: Normal Inspection, Non Tender, No Pedal Edema Neurologic/Psychiatric: Alert, Oriented x3, No Motor/Sensory Deficits, Normal Mood/Affect Skin: Normal Color, Warm/Dry Results/Procedures Lab Laboratory Tests 08/23/21 05:30 Patient resulted labs reviewed. Imaging: Reviewed Imaging Report Assessment/Plan Assessment and Plan Assess & Plan/Chief Complaint Acute respiratory failure due to COVID-19 Secondary bacterial pneumonia TeleICU following Supplemental oxygen as needed, requiring Vapotherm/BiPAP Continue Decadron s/p Actemra 08/21 Repeat procalcitonin, stop IV antibiotics if remains within normal limits New onset AFib with RVR Cardiology following IV Cardizem, consider transitioning to oral Lovenox, consider transitioning to oral Super obesity Clinically significant, no acute management needs Critical Care Critically Ill Patient Diagnosis/Problems Diagnosis/Problems (1) Acute respiratory failure due to COVID-19 Status: Acute (2) Secondary bacterial pneumonia Status: Acute (3) Atrial fibrillation with RVR Status: Acute (4) Super obesity Status: Chronic MCKAYLA DURÁN MD Aug 23, 2021 11:07
[2021-08-23] MEDS ORDERED: PATIENT MAY USE OWN MED,SINGLE MED PO SCH (13:45)
[2021-08-23] MEDS ORDERED: NS (IVPB) 250 ML ONE ×2 (17:06→22:13)
[2021-08-23] MEDS ORDERED: AZITHROMYCIN INJECTION 250 MG in NS (IVPB) 250 ML IV SCH (21:00)
[2021-08-24] VITALS (26 sets, daily range): BP systolic 77–134; BP diastolic 59–98
[2021-08-24] MEDS: CEFEPIME INJECTION 1,000 MG in NS (IVPB) 50 ML IV SCH ×2 (01:15→06:51)
[2021-08-24] MEDS: RT-ALBUTEROL HFA 8.5 GM INHALER IH SCH ×6 (02:57→22:54)
[2021-08-24 05:19] LABS: BASOPHILS % (AUTO) 0 % (0-10); EOSINOPHILS % (AUTO) 0 % (0-10); HEMATOCRIT 43 % (40-54); HEMOGLOBIN 14.4 g/dL (13.3-17.7); LYMPHOCYTES # (AUTO) 1.8 10^3/uL (1.0-4.0); LYMPHOCYTES % (AUTO) 15 % (12-44); MEAN CORPUSCULAR HEMOGLOBIN 30 pg (25-34); MEAN CORPUSCULAR HGB CONC 33 g/dL (32-36); MEAN CORPUSCULAR VOLUME 90 fL (80-99); MEAN PLATELET VOLUME 9.7 fL (9.0-12.2); MONOCYTES # (AUTO) 0.6 10^3/uL (0.0-1.0); MONOCYTES % (AUTO) 5 % (0-12); NEUTROPHILS # (AUTO) 9.7 10^3/uL (1.8-7.8); NEUTROPHILS % (AUTO) 79 % (42-75); PLATELET COUNT 294 10^3/uL (130-400); WHITE BLOOD COUNT 12.2 10^3/uL (4.3-11.0)
[2021-08-24 05:32] LABS: ALBUMIN 3.1 GM/DL (3.2-4.5); POTASSIUM 4.2 MMOL/L (3.6-5.0)
[2021-08-24 05:34] LABS: TOTAL PROTEIN 6.2 GM/DL (6.4-8.2)
[2021-08-24 05:36] LABS: BILIRUBIN,TOTAL 0.5 MG/DL (0.1-1.0)
[2021-08-24 05:37] LABS: PHOSPHORUS 3.3 MG/DL (2.3-4.7)
[2021-08-24 05:38] LABS: CREATININE SERUM 0.87 MG/DL (0.60-1.30)
[2021-08-24 06:00] LABS: ANISOCYTOSIS SLIGHT; ATYPICAL LYMPHOCYTES 4 %; BAND NEUTROPHILS 4 %; BLAST CELLS 3 %; LYMPHOCYTES % (MANUAL) 8 %; MICROCYTOSIS SLIGHT; MONOCYTES % (MANUAL) 5 %; NEUTROPHILS % (MANUAL) 76 %; POLYCHROMASIA SLIGHT
[2021-08-24] MEDS: inSUlin ASPART (NovoLOG) 1 UNIT/0.01 ML (CHARGE PER UNIT) SC SCH ×4 (06:30→23:02)
[2021-08-24] MEDS: ENOXAPARIN 300 MG/3 ML (LOVENOX) MULTI-DOSE VIAL SQ SCH (08:30)
[2021-08-24] MEDS: VIIBRYD 20 MG PO SCH (08:30)
[2021-08-24] MEDS: SENNA W/DOCUSATE (SENOKOT S) TABLET PO SCH ×2 (09:00→23:02)
[2021-08-24] MEDS: polyethylene glycoL POWDER 17 GM (MIRALAX) PACK PO SCH ×2 (09:00→23:01)
--- NOTE | 2021-08-24 09:08 | Tele-ICU Progress Note ---
Progress Note video round completed 46 y/o morbidly obese male with Covid PNA On O2 therapy Appears comfortable in bed Pulse" 75 irregular, a fib, BP: 99/64 O2 sat 87-90% Focused Exam Height, Weight, BMI Height: 5'9.00" Weight: 358lbs. 8.0oz. 162.335398ib; 55.85 BMI Method:Stated Laboratory Tests 08/24/21 05:10 Labs Labs Laboratory Tests 08/23/21 10:27: Glucometer 95 08/23/21 16:10: Glucometer 132H 08/23/21 21:01: Glucometer 139H 08/24/21 05:10: White Blood Count 12.2H, Red Blood Count 4.79, Hemoglobin 14.4, Hematocrit 43, Mean Corpuscular Volume 90, Mean Corpuscular Hemoglobin 30, Mean Corpuscular Hemoglobin Concent 33, Red Cell Distribution Width 12.9, Platelet Count 294, Mean Platelet Volume 9.7, Immature Granulocyte % (Auto) 1, Neutrophils (%) ( Auto) 79H, Lymphocytes (%) (Auto) 15, Monocytes (%) (Auto) 5, Eosinophils (%) (Auto) 0, Basophils (%) (Auto) 0, Neutrophils # (Auto) 9.7H, Lymphocytes # (Auto) 1.8, Monocytes # (Auto) 0.6, Eosinophils # (Auto) 0.0, Basophils # (Auto) 0.0, Immature Granulocyte # (Auto) 0.2H, Neutrophils % (Manual) 76, Lymphocytes % (Manual) 8, Monocytes % (Manual) 5, Band Neutrophils 4, Atypical Lymphocytes 4, Blast Cells 3, Polychromasia SLIGHT, Anisocytosis SLIGHT, Microcytosis SLIGHT, Sodium Level 138, Potassium Level 4.2, Chloride Level 107, Carbon Dioxide Level 24, Anion Gap 7, Blood Urea Nitrogen 18, Creatinine 0.87, Estimat Glomerular Filtration Rate 94, BUN/Creatinine Ratio 21, Glucose Level 111H, Calcium Level 8.0L, Corrected Calcium 8.7, Phosphorus Level 3.3, Magnesium Level 2.0, Total Bilirubin 0.5, Aspartate Amino Transf (AST/SGOT) 53H, Alanine Aminotransferase (ALT/SGPT) 39, Alkaline Phosphatase 58, Total Protein 6.2L, Albumin 3.1L LASHA PEREZ MD Aug 24, 2021 09:08
--- NOTE | 2021-08-24 09:30 | Cardiology Progress Note ---
Subjective Date Seen by Provider: Aug 24, 2021 Time Seen by Provider: 09:28 Subjective/Events-last exam Patient is laying down in bed, still on BiPAP. Review of Systems General: Fatigue Pulmonary: Dyspnea Objective-Cardiology Exam Last Set of Vital Signs Vital Signs 08/24/21 08/24/21 08/24/21 04:00 07:00 07:50 Temp 36.0 Pulse 53 Resp 23 B/P (MAP) 111/83 (92) Pulse Ox 89 O2 Delivery NIV CPAP O2 Flow Rate 45.00 FiO2 50 I&O Intake and Output 08/24/21 00:00 Intake Total 2252.5 ml Output Total 1600 ml Balance 652.5 ml Intake Oral 2000 ml IV Total 252.5 ml Output Urine Total 1600 ml General: Alert, Cooperative HEENT: Atraumatic Heart: Other (Atrial fibrillation) Extremities: No Clubbing, No Cyanosis Skin: No Rashes Results Lab Laboratory Tests 08/24/21 05:10 A/P-Cardiology Admission Diagnosis Atrial fibrillation with rapid ventricular response COVID-19 pneumonia Acute respiratory failure COPD Assessment/Plan Paroxysmal atrial fibrillation, probably has underlying atrial fibrillation that patient was not aware of. Has been in atrial fibrillation since admission, rate is controlled on Cardizem drip. I will change Cardizem to 30 mg every 6 hours and add Toprol-XL 25 mg daily and monitor tolerance and response [id number] score of 2, yearly risk of stroke without oral anticoagulation is 2.2%. Patient was on Lovenox, I will switch it to Eliquis. COVID-19 pneumonia, received Acterma, receiving Decadron, maintained on oxygen. Patient did not receive the vaccine. Acute respiratory failure, requiring oxygen requirement, continue with current treatment and oxygenation monitor tolerance and response Hypertension, monitor blood pressure Obesity, BMI 54 increased risk of complication Obstructive sleep apnea. SUZANNE LINARES MD Aug 24, 2021 09:30
[2021-08-24] MEDS: APIXABAN 5 MG (ELIQUIS) TABLET PO SCH ×2 (10:41→23:01)
--- NOTE | 2021-08-24 11:37 | Progress Note - Hospitalist ---
Subjective HPI/CC On Admission Date Seen by Provider: Aug 24, 2021 Time Seen by Provider: 11:00 Chief complaint: COVID-19 pneumonia with acute hypoxic respiratory failure History present illness: This is a 46-year-old unvaccinated against Covid patient of Aamir Bauman in [place] who has a past medical history of hyperten gilbert and TICO who presents to the [facility] ER with shortness of breath. He was diagnosed with Covid the day before was not hypoxic and sent home but returned today with increased shortness of breath and acute hypoxic respiratory failure requiring inpatient stay. He is currently now on 7 L and is high risk for progression. He may be in Actemra candidate. Poor IV access noted since his IV is a 24-gauge in his chest wall. Central line may be required. Checking meds and labs. Subjective/Events-last exam He is feeling about the same. He still has a cough. He was feeling hot earlier, but denies fevers. He ate breakfast. Objective Exam Vital Signs Vital Signs Date Time Temp Pulse Resp B/P (MAP) Pulse Ox O2 Delivery O2 Flow Rate FiO2 08/24/21 11:00 36.4 08/24/21 10:49 91 Vapotherm 40.00 100 08/24/21 10:00 80 15 122/76 (91) Capillary Refill : Less Than 3 Seconds General Appearance: No Apparent Distress, Obese Respiratory: Lungs Clear, Normal Breath Sounds, No Respiratory Distress Cardiovascular: No Edema, No Murmur, Irregularly Irregular Gastrointestinal: Normal Bowel Sounds, Non Tender, Soft Extremity: Normal Inspection, Non Tender, No Pedal Edema Neurologic/Psychiatric: Alert, Oriented x3, No Motor/Sensory Deficits Skin: Normal Color, Warm/Dry Results/Procedures Lab Laboratory Tests 08/24/21 05:10 Patient resulted labs reviewed. Imaging: Reviewed Imaging Report Assessment/Plan Assessment and Plan Assess & Plan/Chief Complaint Acute respiratory failure due to COVID-19 TeleICU following Supplemental oxygen as needed, requiring Vapotherm/BiPAP Continue Decadron s/p Actemra 08/21 Procalcitonin normal x2, stop antibiotics New onset AFib with RVR Cardiology following Transitioned to Diltiazem and Metoprolol Eliquis for stroke prophylaxis Super obesity Clinically significant, no acute management needs Critical Care Critically Ill Patient Diagnosis/Problems Diagnosis/Problems (1) Acute respiratory failure due to COVID-19 Status: Acute (2) Atrial fibrillation with RVR Status: Acute (3) Super obesity Status: Chronic MCKAYLA DURÁN MD Aug 24, 2021 11:37
[2021-08-25] VITALS (26 sets, daily range): BP systolic 93–139; BP diastolic 66–104
[2021-08-25] MEDS: RT-ALBUTEROL HFA 8.5 GM INHALER IH SCH ×6 (02:38→22:36)
--- NOTE | 2021-08-25 07:36 | Cardiology Progress Note ---
Subjective Date Seen by Provider: Aug 25, 2021 Time Seen by Provider: 07:34 Subjective/Events-last exam Patient is laying down comfortably in bed Still on Vapotherm, using CPAP at night. Still in atrial fibrillation Review of Systems General: No Chills, No Night Sweats; Fatigue, Malaise; No Appetite, No Other HEENT: No Head Aches, No Visual Changes, No Eye Pain, No Ear Pain, No Dysphasia, No Sinus Congestion, No Post Nasal Drip, No Sore Throat, No Other Pulmonary: Dyspnea; No Cough, No Pleuritic Chest Pain, No Other Cardiovascular: No: Chest Pain, Palpitations, Orthopnea, Paroxysmal Noc. Dyspnea, Edema, Lt Headedness, Other Objective-Cardiology Exam Last Set of Vital Signs Vital Signs 08/24/21 08/25/21 08/25/21 08/25/21 20:00 06:00 07:00 07:03 Temp 35.6 Pulse 63 Resp 24 B/P (MAP) 133/81 (98) Pulse Ox 94 O2 Delivery Vapotherm O2 Flow Rate 35.00 FiO2 90 I&O Intake and Output 08/25/21 00:00 Intake Total 1900 ml Output Total 3075 ml Balance -1175 ml Intake Oral 1900 ml Output Urine Total 3075 ml General: Alert, Cooperative HEENT: Atraumatic Neck: Supple, No JVD, No Thyromegaly Lungs: Normal Air Movement Heart: Normal S1, Normal S2, Other (Atrial fibrillation) Abdomen: Normal Bowel Sounds, Soft, No Tenderness, No Hepatosplenomegaly, No Masses Extremities: No Clubbing, No Cyanosis Skin: No Rashes Neuro: Normal Gait, Normal Speech, Strength at 5/5 X4 Ext, Normal Tone, Sensation Intact Psych/Mental Status: Mental Status NL, Mood NL Results Lab Laboratory Tests Test 08/24/21 10:59 08/24/21 16:05 08/24/21 20:23 Range/Units Glucometer 106 143 H 133 H 70-110 MG/DL A/P-Cardiology Admission Diagnosis Atrial fibrillation with rapid ventricular response COVID-19 pneumonia Acute respiratory failure COPD Assessment/Plan Paroxysmal atrial fibrillation, probably has underlying atrial fibrillation that patient was not aware of. Has been in atrial fibrillation since admission, rate is controlled, has been on anticoagulation without interruption. I will add amiodarone and evaluate tolerance and response. [id number] score of 2, yearly risk of stroke without oral anticoagulation is 2.2%. Patient was on Lovenox, currently on Eliquis and tolerating medication well COVID-19 pneumonia, received Acterma, receiving Decadron, maintained on oxygen. Patient did not receive the vaccine. Acute respiratory failure, requiring oxygen requirement, continue with current treatment and oxygenation monitor tolerance and response Hypertension, monitor blood pressure Obesity, BMI 54 increased risk of complication Obstructive sleep apnea. SUZANNE LINARES MD Aug 25, 2021 07:36
[2021-08-25 07:40] LABS: BASOPHILS % (AUTO) 0 % (0-10); EOSINOPHILS % (AUTO) 0 % (0-10); HEMATOCRIT 47 % (40-54); HEMOGLOBIN 15.7 g/dL (13.3-17.7); LYMPHOCYTES # (AUTO) 2.3 10^3/uL (1.0-4.0); LYMPHOCYTES % (AUTO) 18 % (12-44); MEAN CORPUSCULAR HEMOGLOBIN 30 pg (25-34); MEAN CORPUSCULAR HGB CONC 33 g/dL (32-36); MEAN CORPUSCULAR VOLUME 89 fL (80-99); MEAN PLATELET VOLUME 9.8 fL (9.0-12.2); MONOCYTES # (AUTO) 0.6 10^3/uL (0.0-1.0); MONOCYTES % (AUTO) 5 % (0-12); NEUTROPHILS # (AUTO) 9.4 10^3/uL (1.8-7.8); NEUTROPHILS % (AUTO) 75 % (42-75); PLATELET COUNT 340 10^3/uL (130-400); WHITE BLOOD COUNT 12.6 10^3/uL (4.3-11.0)
[2021-08-25] MEDS ORDERED: AMIODARONE FOR BOLUS 150 MG in D5W 100 ML IVPB 100 ML IV ONE (07:45)
[2021-08-25 07:51] LABS: ALBUMIN 3.4 GM/DL (3.2-4.5); POTASSIUM 4.2 MMOL/L (3.6-5.0)
[2021-08-25 07:52] LABS: CALCIUM 8.5 MG/DL (8.5-10.1)
[2021-08-25 07:54] LABS: TOTAL PROTEIN 6.6 GM/DL (6.4-8.2)
[2021-08-25 07:55] LABS: BILIRUBIN,TOTAL 0.8 MG/DL (0.1-1.0)
[2021-08-25 07:57] LABS: CREATININE SERUM 0.84 MG/DL (0.60-1.30); PHOSPHORUS 3.2 MG/DL (2.3-4.7)
[2021-08-25 08:00] LABS: MAGNESIUM 2.3 MG/DL (1.6-2.4)
[2021-08-25] MEDS: inSUlin ASPART (NovoLOG) 1 UNIT/0.01 ML (CHARGE PER UNIT) SC SCH ×4 (08:18→19:56)
[2021-08-25] MEDS: APIXABAN 5 MG (ELIQUIS) TABLET PO SCH ×2 (09:04→20:17)
[2021-08-25] MEDS: VIIBRYD 20 MG PO SCH (09:05)
[2021-08-25] MEDS: AMIODARONE INJECTION 450 MG in D5W IV SOLUTION (EXCEL) 250 ML IV SCH ×2 (09:06→20:17)
[2021-08-25] MEDS: SENNA W/DOCUSATE (SENOKOT S) TABLET PO SCH ×2 (09:07→20:24)
[2021-08-25] MEDS: polyethylene glycoL POWDER 17 GM (MIRALAX) PACK PO SCH ×2 (09:07→20:24)
--- NOTE | 2021-08-25 10:46 | Tele-ICU Progress Note ---
Subjective Date Seen by a Provider: Aug 25, 2021 Time Seen by a Provider: 10:46 Sepsis Event Evaluation Height, Weight, BMI Height: 5'9.00" Weight: 358lbs. 8.0oz. 162.971374te; 55.85 BMI Method:Stated Exam Exam Patient acknowledged, consented, and participated in this virtual visit which was conducted using real time audio/video Vital Signs Date Time Temp Pulse Resp B/P (MAP) Pulse Ox O2 Delivery O2 Flow Rate FiO2 08/25/21 10:09 90 Vapotherm 35.00 95 08/25/21 10:00 77 14 134/104 (114) 90 NIV CPAP 45.00 08/25/21 09:06 90 102/85 08/25/21 09:00 80 113/80 (91) 91 NIV CPAP 45.00 08/25/21 08:00 90 102/85 (91) 95 NIV CPAP 45.00 08/25/21 08:00 94 NIV CPAP 30.00 90 08/25/21 08:00 37.1 08/25/21 07:03 94 Vapotherm 35.00 90 08/25/21 07:00 80 93/67 (76) 98 NIV CPAP 45.00 08/25/21 07:00 63 08/25/21 06:00 66 24 133/81 (98) 90 NIV CPAP 45.00 08/25/21 05:00 72 24 130/100 (110) 94 NIV CPAP 45.00 08/25/21 04:00 79 23 116/87 (97) 94 NIV CPAP 45.00 08/25/21 04:00 93 NIV CPAP 31.00 95 08/25/21 03:00 84 122/84 (97) 96 NIV CPAP 45.00 08/25/21 02:39 90 Vapotherm 35.00 95 08/25/21 02:00 62 25 98/71 (80) 97 NIV CPAP 45.00 08/25/21 01:00 82 08/25/21 01:00 72 17 123/94 (104) 93 NIV CPAP 45.00 08/25/21 00:00 93 NIV CPAP 31.00 95 08/25/21 00:00 73 28 136/99 (111) 96 NIV CPAP 45.00 08/24/21 23:00 62 16 121/77 (92) 93 NIV CPAP 45.00 08/24/21 22:53 92 Vapotherm 35.00 95 08/24/21 22:00 84 20 134/98 (110) 97 NIV CPAP 45.00 08/24/21 21:00 79 20 112/83 (93) 96 NIV CPAP 45.00 08/24/21 20:00 93 NIV CPAP 31.00 95 08/24/21 20:00 35.6 08/24/21 20:00 89 20 113/69 (84) 96 NIV CPAP 45.00 08/24/21 19:15 91 Vapotherm 35.00 95 08/24/21 19:00 80 08/24/21 19:00 70 20 100/79 (86) 95 NIV CPAP 45.00 08/24/21 18:00 76 28 129/81 (97) 93 NIV CPAP 45.00 08/24/21 17:00 89 26 100/74 (83) 96 NIV CPAP 45.00 08/24/21 16:10 36.8 08/24/21 16:00 80 32 77/62 (67) 93 NIV CPAP 45.00 08/24/21 15:47 91 Vapotherm 35.00 95 08/24/21 15:26 93 Vapotherm 35.00 95 08/24/21 15:00 84 14 110/69 (83) 90 NIV CPAP 45.00 08/24/21 14:00 63 13 112/59 (76) 91 NIV CPAP 45.00 08/24/21 13:00 71 08/24/21 13:00 84 15 116/81 (93) 96 NIV CPAP 45.00 08/24/21 12:00 87 98/64 (73) NIV CPAP 45.00 08/24/21 12:00 93 Vapotherm 35.00 95 08/24/21 11:00 36.4 08/24/21 11:00 78 48 115/64 (81) 97 NIV CPAP 45.00 08/24/21 10:49 91 Vapotherm 40.00 100 I & O 08/25/21 07:00 Intake Total 2600 ml Output Total 2675 ml Balance -75 ml Height & Weight Height: 5'9.00" Weight: 358lbs. 8.0oz. 162.689231xk; 55.85 BMI Method:Stated General Appearance: No Apparent Distress, Obese HEENT: Normal ENT Inspection, Pharynx Normal, Moist Mucous Membranes Neck: Full Range of Motion, Normal Inspection, Non Tender Respiratory: Lungs Clear, Normal Breath Sounds, No Respiratory Distress Cardiovascular: No Edema, No Murmur, Irregularly Irregular Capillary Refill: Less Than 3 Seconds Peripheral Pulses: 2+ Radial Pulses (R), 2+ Radial Pulses (L) Gastrointestinal: non tender, soft Extremity: Normal Inspection, Non Tender, No Pedal Edema Neurologic/Psychiatric: Alert, Oriented x3, No Motor/Sensory Deficits Skin: Normal Color, Warm/Dry Lymphatic: No Adenopathy Results Lab Laboratory Tests 08/24/21 05:10 08/25/21 07:24 Assessment/Plan Assessment/Plan Video assessmnt done using teleICU camera, rest of exam as per RN Discussed with RN , EXAM PER RN Events overnight : Afebrile FiO2 - vt I/O = neg 1L Drips: amio gtt Pressors: , hemodynamically stable Consultants: Hospital course: 08/19- + covid 08/20 - admitted 08/21 - to ICU with CPAP 08/25 - CPAP night 45% , VT 35L 95% A/P AHRF / ARDS due to severe COVID19 - on CPAP 18 cm, 35 % -prone position if able - conservative fluid strategy (aim for even or negative fluid balance -High risk for intubation [id number]-0/COVID-19 PNA ( DX unvaccinted --Dexamethasone -- s/p [id number]/ 24 , ( Acyclovir for HSV/VZV prophylaxis after Tocilizumab- 30 days 400 po bid ) -Hypercoagulable state , DDIMER= WNL on 08/22 -> eliquis 5 bid ( no evidence of large PE on CT 08/19) Suspected superimposed bact PNA -empiric abx started on 08/20- OFF NOW New onset AFib with RVR -Cardiology following - amio gtt 08/25 ( crdizem gtt off -Eliquis 5 bid Asthma - br-dil , steroids IV Hyperglycemia - on steroids - ISS TICO- nocturnal BIPAP/CPAP Morbid ovesity Lines : PICC (Central Line Necessity Reviewed) Doty: void OG: Nutrition: PO ok Analgesia: Anxiety/ delirium VTE Prophylaxis: lovenox Stress Ulcer Prophylaxis: Po intake Plans in collaboration with bedside consultants and IM MDs. Discussed with RN to reach out if any questions or concerns A total of 32 minutes of critical care time was devoted to this patient today, r equired to treat and/or prevent further deterioration of critical care condition ( as above ) . MILTON ROGEL MD Aug 25, 2021 10:46
--- NOTE | 2021-08-25 11:20 | Progress Note - Hospitalist ---
Subjective HPI/CC On Admission Date Seen by Provider: Aug 25, 2021 Time Seen by Provider: 10:10 Chief complaint: COVID-19 pneumonia with acute hypoxic respiratory failure History present illness: This is a 46-year-old unvaccinated against Covid patient of Aamir Bauman in [place] who has a past medical history of hyperten gilbert and TICO who presents to the [place] ER with shortness of breath. He was diagnosed with Covid the day before was not hypoxic and sent home but returned today with increased shortness of breath and acute hypoxic respiratory failure requiring inpatient stay. He is currently now on 7 L and is high risk for progression. He may be in Actemra candidate. Poor IV access noted since his IV is a 24-gauge in his chest wall. Central line may be required. Checking meds and labs. Subjective/Events-last exam He is feeling about the same. He is anxious. He isn't able to get comfortable. Objective Exam Vital Signs Vital Signs Date Time Temp Pulse Resp B/P (MAP) Pulse Ox O2 Delivery O2 Flow Rate FiO2 08/25/21 11:00 90 20 125/91 (102) 95 NIV CPAP 45.00 08/25/21 10:09 95 08/25/21 08:00 37.1 Capillary Refill : Less Than 3 Seconds General Appearance: Anxious, Mild Distress (uncomfortable), Obese Respiratory: No Respiratory Distress, Decreased Breath Sounds, Other (wearing Vapotherm) Cardiovascular: No Murmur, Irregularly Irregular Gastrointestinal: Normal Bowel Sounds, Non Tender, Soft Extremity: Normal Inspection, Non Tender, No Pedal Edema Neurologic/Psychiatric: Alert, Oriented x3, No Motor/Sensory Deficits Skin: Normal Color, Warm/Dry Results/Procedures Lab Laboratory Tests 08/25/21 07:24 Patient resulted labs reviewed. Imaging: Reviewed Imaging Report Assessment/Plan Assessment and Plan Assess & Plan/Chief Complaint Acute respiratory failure due to COVID-19 TeleICU following Supplemental oxygen as needed, requiring Vapotherm/BiPAP Continue Decadron s/p Actemra 08/21 New onset AFib with RVR Cardiology following Continue Diltiazem and Metoprolol Started on IV Amiodarone Eliquis for stroke prophylaxis Anxiety Xanax Super obesity Clinically significant, no acute management needs Critical Care Critically Ill Patient Diagnosis/Problems Diagnosis/Problems (1) Acute respiratory failure due to COVID-19 Status: Acute (2) Atrial fibrillation with RVR Status: Acute (3) Super obesity Status: Chronic MCKAYLA DURÁN MD Aug 25, 2021 11:20
[2021-08-25] MEDS ORDERED: ALPRAZolam 0.5 MG (XANAX) TAB PO ONE (11:30)
[2021-08-25] MEDS: ACYCLOVIR 400 MG TABLET (ZOVIRAX) PO SCH (20:17)
[2021-08-25] MEDS: ALPRAZolam 0.5 MG (XANAX) TAB PO SCH (20:17)
[2021-08-26] VITALS (33 sets, daily range): BP systolic 85–166; BP diastolic 47–114
[2021-08-26] MEDS: RT-ALBUTEROL HFA 8.5 GM INHALER IH SCH ×6 (02:09→22:39)
[2021-08-26 04:35] LABS: BASOPHILS % (AUTO) 0 % (0-10); EOSINOPHILS % (AUTO) 0 % (0-10); HEMATOCRIT 47 % (40-54); HEMOGLOBIN 15.9 g/dL (13.3-17.7); LYMPHOCYTES # (AUTO) 1.8 10^3/uL (1.0-4.0); LYMPHOCYTES % (AUTO) 11 % (12-44); MEAN CORPUSCULAR HEMOGLOBIN 30 pg (25-34); MEAN CORPUSCULAR HGB CONC 34 g/dL (32-36); MEAN CORPUSCULAR VOLUME 89 fL (80-99); MONOCYTES # (AUTO) 0.5 10^3/uL (0.0-1.0); MONOCYTES % (AUTO) 3 % (0-12); NEUTROPHILS # (AUTO) 14.5 10^3/uL (1.8-7.8); NEUTROPHILS % (AUTO) 84 % (42-75); PLATELET COUNT 318 10^3/uL (130-400); WHITE BLOOD COUNT 17.2 10^3/uL (4.3-11.0)
[2021-08-26 04:53] LABS: ALBUMIN 3.3 GM/DL (3.2-4.5); POTASSIUM 4.5 MMOL/L (3.6-5.0)
[2021-08-26 04:55] LABS: CALCIUM 8.3 MG/DL (8.5-10.1)
[2021-08-26 04:56] LABS: TOTAL PROTEIN 6.5 GM/DL (6.4-8.2)
[2021-08-26 04:58] LABS: BILIRUBIN,TOTAL 0.8 MG/DL (0.1-1.0)
[2021-08-26 04:59] LABS: PHOSPHORUS 3.6 MG/DL (2.3-4.7)
[2021-08-26 05:00] LABS: CREATININE SERUM 0.86 MG/DL (0.60-1.30)
[2021-08-26 05:02] LABS: MAGNESIUM 2.4 MG/DL (1.6-2.4)
[2021-08-26] MEDS: inSUlin ASPART (NovoLOG) 1 UNIT/0.01 ML (CHARGE PER UNIT) SC SCH ×4 (06:13→20:17)
--- NOTE | 2021-08-26 08:42 | Diagnostic Imaging Report ---
EXAMINATION: Chest 1 view HISTORY: COVID pneumonia. Shortness of breath. COMPARISON: 08/21/2021. FINDINGS: There is improved aeration in the left lung with stable opacities in the right mid and lower lung. Stable prominent cardiac silhouette. No pleural effusion or pneumothorax. No acute osseous abnormalities. IMPRESSION: 1. Improved aeration in the left lung with stable opacities in the right lung. Findings may represent improving pneumonia. Recommend continued followup. Dictated by: Dictated on workstation # [id number]
[2021-08-26] MEDS: VIIBRYD 20 MG PO SCH (09:00)
[2021-08-26] MEDS: ACYCLOVIR 400 MG TABLET (ZOVIRAX) PO SCH ×2 (09:00→20:37)
[2021-08-26] MEDS: SENNA W/DOCUSATE (SENOKOT S) TABLET PO SCH ×2 (09:04→20:17)
[2021-08-26] MEDS: APIXABAN 5 MG (ELIQUIS) TABLET PO SCH ×2 (09:04→20:37)
[2021-08-26] MEDS: ALPRAZolam 0.5 MG (XANAX) TAB PO SCH ×2 (09:04→20:37)
[2021-08-26] MEDS: polyethylene glycoL POWDER 17 GM (MIRALAX) PACK PO SCH ×2 (09:04→20:17)
--- NOTE | 2021-08-26 09:43 | Cardiology Progress Note ---
Subjective Date Seen by Provider: Aug 26, 2021 Time Seen by Provider: 09:42 Subjective/Events-last exam Patient is laying down in bed, still short of breath, frustrated from his slow progression. Review of Systems General: No Chills, No Night Sweats; Fatigue, Malaise; No Appetite, No Other HEENT: No Head Aches, No Visual Changes, No Eye Pain, No Ear Pain, No Dysphas ia, No Sinus Congestion, No Post Nasal Drip, No Sore Throat, No Other Pulmonary: Dyspnea, Cough; No Pleuritic Chest Pain, No Other Cardiovascular: No: Chest Pain, Palpitations, Orthopnea, Paroxysmal Noc. Dyspnea, Edema, Lt Headedness, Other Objective-Cardiology Exam Last Set of Vital Signs Vital Signs 08/26/21 08/26/21 08/26/21 08/26/21 08/26/21 08/26/21 03:18 06:00 06:50 07:00 07:53 09:40 Temp 35.8 Pulse 54 Resp 28 B/P (MAP) 110/76 (87) Pulse Ox 93 O2 Delivery NIV CPAP O2 Flow Rate 60.00 FiO2 65 I&O Intake and Output 08/26/21 00:00 Intake Total 2350 ml Output Total 3025 ml Balance -675 ml Intake Oral 2350 ml Output Urine Total 3025 ml # Bowel Movements 2 General: Alert, Cooperative HEENT: Atraumatic Neck: Supple, No JVD, No Thyromegaly Lungs: Normal Air Movement Heart: Normal S1, Normal S2, Other (Atrial fibrillation) Abdomen: Normal Bowel Sounds, Soft, No Tenderness, No Hepatosplenomegaly, No Masses Extremities: No Clubbing, No Cyanosis Skin: No Rashes Neuro: Normal Gait, Normal Speech, Strength at 5/5 X4 Ext, Normal Tone, Sensation Intact Psych/Mental Status: Mental Status NL, Mood NL Results Lab Laboratory Tests 08/26/21 04:25 A/P-Cardiology Admission Diagnosis Atrial fibrillation with rapid ventricular response COVID-19 pneumonia Acute respiratory failure COPD Assessment/Plan Paroxysmal atrial fibrillation, probably has underlying atrial fibrillation that patient was not aware of. Has been in atrial fibrillation since admission, rate is controlled, has been on anticoagulation without interruption. Continue on oral amiodarone [id number] score of 2, yearly risk of stroke without oral anticoagulation is 2.2%. Patient was on Lovenox, currently on Eliquis and tolerating medication well COVID-19 pneumonia, received Acterma, receiving Decadron, maintained on oxygen. Patient did not receive the vaccine. Acute respiratory failure, was on Vapotherm 100%, currently on CPAP. Slow progression, chest x-ray showing improvement Hypertension, monitor blood pressure Obesity, BMI 53 increased risk of complication Obstructive sleep apnea. SUZANNE LINARES MD Aug 26, 2021 09:43
[2021-08-26] MEDS ORDERED: FUROSEMIDE 40 MG/4 ML INJ (LASIX) IVP ONE (10:15)
--- NOTE | 2021-08-26 10:18 | Tele-ICU Progress Note ---
Subjective Date Seen by a Provider: Aug 26, 2021 Time Seen by a Provider: 10:16 Sepsis Event Evaluation Height, Weight, BMI Height: 5'9.00" Weight: 358lbs. 8.0oz. 162.099184jj; 55.85 BMI Method:Stated Exam Exam Patient acknowledged, consented, and participated in this virtual visit which was conducted using real time audio/video Vital Signs Date Time Temp Pulse Resp B/P (MAP) Pulse Ox O2 Delivery O2 Flow Rate FiO2 08/26/21 10:01 65 22 93 45.00 08/26/21 09:40 NIV CPAP 60.00 08/26/21 09:13 Vapotherm 40.00 100.00 08/26/21 07:53 35.8 08/26/21 07:00 54 08/26/21 06:50 65 28 93 45.00 08/26/21 06:00 48 23 110/76 (87) 93 NIV CPAP 60.00 08/26/21 05:00 53 22 95/65 (75) 94 NIV CPAP 60.00 08/26/21 04:00 48 38 103/81 (88) 90 NIV CPAP 60.00 08/26/21 03:38 55 18 111/83 (92) 98 NIV CPAP 60.00 08/26/21 03:18 NIV CPAP 65 08/26/21 03:00 51 26 166/114 (131) 93 NIV CPAP 60.00 08/26/21 02:09 65 28 93 45.00 08/26/21 02:00 53 27 112/81 (91) 91 NIV CPAP 60.00 08/26/21 01:11 52 21 108/68 (81) 87 NIV CPAP 60.00 08/26/21 01:00 62 08/26/21 00:00 70 17 112/83 (93) 92 NIV CPAP 60.00 08/25/21 23:25 NIV CPAP 65 08/25/21 23:15 36.6 NIV CPAP 60.00 08/25/21 23:00 84 20 105/67 (80) 93 Vapotherm 40.00 100.00 08/25/21 22:36 92 Vapotherm 40.00 100 08/25/21 22:00 78 13 122/102 (109) 91 Vapotherm 40.00 100.00 08/25/21 21:00 68 25 101/66 (78) 93 Vapotherm 40.00 100.00 08/25/21 20:18 64 22 122/84 (97) 91 Vapotherm 40.00 100.00 08/25/21 20:00 53 122/84 (97) 92 NIV CPAP 45.00 08/25/21 20:00 Vapotherm 40.00 100 08/25/21 20:00 36.0 08/25/21 19:10 82 08/25/21 19:00 67 22 119/72 (88) 92 NIV CPAP 45.00 08/25/21 18:57 65 28 92 45.00 08/25/21 18:00 67 32 119/69 (86) 91 NIV CPAP 45.00 08/25/21 17:00 65 19 124/85 (98) 92 NIV CPAP 45.00 08/25/21 16:00 36.4 08/25/21 16:00 93 120/77 (91) 92 NIV CPAP 45.00 08/25/21 16:00 94 NIV CPAP 45 08/25/21 15:36 95 Vapotherm 35.00 95 08/25/21 15:00 61 28 139/82 (101) 95 NIV CPAP 45.00 08/25/21 14:00 56 30 113/72 (81) 95 NIV CPAP 45.00 08/25/21 13:00 63 26 124/73 (90) 92 NIV CPAP 45.00 08/25/21 12:42 64 08/25/21 12:00 80 18 115/77 (90) 90 NIV CPAP 45.00 08/25/21 12:00 94 NIV CPAP 35.00 95 08/25/21 11:15 36.6 08/25/21 11:00 90 20 125/91 (102) 95 NIV CPAP 45.00 I & O 08/26/21 07:00 Intake Total 1800 ml Output Total 3025 ml Balance -1225 ml Height & Weight Height: 5'9.00" Weight: 358lbs. 8.0oz. 162.584528nq; 55.85 BMI Method:Stated General Appearance: Anxious, Mild Distress (uncomfortable), Obese HEENT: Normal ENT Inspection, Pharynx Normal, Moist Mucous Membranes Neck: Full Range of Motion, Normal Inspection, Non Tender Respiratory: No Respiratory Distress, Decreased Breath Sounds, Other (wearing Vapotherm) Cardiovascular: No Murmur, Irregularly Irregular Capillary Refill: Less Than 3 Seconds Peripheral Pulses: 2+ Radial Pulses (R), 2+ Radial Pulses (L) Gastrointestinal: non tender, soft Extremity: Normal Inspection, Non Tender, No Pedal Edema Neurologic/Psychiatric: Alert, Oriented x3, No Motor/Sensory Deficits Skin: Normal Color, Warm/Dry Lymphatic: No Adenopathy Results Lab Laboratory Tests 08/25/21 07:24 08/26/21 04:25 Assessment/Plan Assessment/Plan Video assessmnt done using teleICU camera, rest of exam as per RN Discussed with RN , EXAM PER RN Events overnight : Afebrile FiO2 - vt I/O = neg 600 ml Drips: amio gtt Pressors: , hemodynamically stable Consultants: Hospital course: 08/19- + covid 08/20 - admitted 08/21 - to ICU with CPAP 08/25 - CPAP night 45% , VT 35L 95% 08/26 = CPAP 18 night 60 % , VT 40L 100 - poor tolerance - TRY DIURESIS x 1 and INCREASE STEROIDS A/P AHRF / ARDS due to severe COVID19 - WORSENING -on CPAP 18 cm at night - FIO2 NEEDS INCREASED TO 60% - VT 40L 100% - poor tolerance -> back to CPAP now -prone position if able = poor tolerance - conservative fluid strategy (aim for even or negative fluid balance - TRY DIURESIS x 1 and INCREASE STEROIDS given wheezing -High risk for intubation FSOB-Kweauqzzfst-3/COVID-19 PNA ( DX unvaccinted --Dexamethasone - INCREASED to 10 tid on 08/25 -- s/p [id number]/ 24 , ( Acyclovir for HSV/VZV prophylaxis after Tocilizumab- 30 days 400 po bid ) -Hypercoagulable state , DDIMER= WNL on 08/22 -> eliquis 5 bid ( no evidence of large PE on CT 08/19) Suspected superimposed bact PNA -empiric abx started on 08/20- OFF NOW - Elev WBC_ can be related to steroids - check PCT and CXR New onset AFib with RVR -Cardiology following - amio gtt 08/25 ( cardizem gtt off- to stop amio gtt 08/26 -Eliquis 5 bid Rising LFTs - follow closely ( not on remdesivir ) Asthma - br-dil , steroids IV increased 08/26 due to wheezing Hyperglycemia - on steroids - ISS TICO- nocturnal BIPAP/CPAP Morbid ovesity Lines : PICC (Central Line Necessity Reviewed) Doty: void OG: Nutrition: PO ok Analgesia: Anxiety/ delirium VTE Prophylaxis: lovenox Stress Ulcer Prophylaxis: Po intake Plans in collaboration with bedside consultants and IM MDs. Discussed with RN to reach out if any questions or concerns A total of 32 minutes of critical care time was devoted to this patient today, required to treat and/or prevent further deterioration of critical care condition ( as above ) . MILTON ROGEL MD Aug 26, 2021 10:18
--- NOTE | 2021-08-26 14:22 | Progress Note - Hospitalist ---
Subjective HPI/CC On Admission Date Seen by Provider: Aug 26, 2021 Time Seen by Provider: 11:15 Chief complaint: COVID-19 pneumonia with acute hypoxic respiratory failure History present illness: This is a 46-year-old unvaccinated against Covid patient of Aamir Bauman in [place] who has a past medical history of hyperten gilbert and TICO who presents to the [place] ER with shortness of breath. He was diagnosed with Covid the day before was not hypoxic and sent home but returned today with increased shortness of breath and acute hypoxic respiratory failure requiring inpatient stay. He is currently now on 7 L and is high risk for progression. He may be in Actemra candidate. Poor IV access noted since his IV is a 24-gauge in his chest wall. Central line may be required. Checking meds and labs. Subjective/Events-last exam He is feeling about the same. He denies shortness of breath. He is not having fevers. He wants to try the nasal cannula because he does not like the mask. Objective Exam Vital Signs Vital Signs Date Time Temp Pulse Resp B/P (MAP) Pulse Ox O2 Delivery O2 Flow Rate FiO2 08/26/21 14:07 74 30 96 45.00 08/26/21 11:59 35.3 08/26/21 09:40 NIV CPAP 08/26/21 06:00 110/76 (87) 08/26/21 03:18 65 Capillary Refill : Less Than 3 Seconds General Appearance: No Apparent Distress, Obese Respiratory: No Respiratory Distress, Decreased Breath Sounds Cardiovascular: No Murmur, Irregularly Irregular Gastrointestinal: Normal Bowel Sounds, Non Tender, Soft Extremity: Normal Inspection, Non Tender, No Pedal Edema Neurologic/Psychiatric: Alert, Oriented x3, No Motor/Sensory Deficits, Depressed Affect Skin: Normal Color, Warm/Dry Results/Procedures Lab Laboratory Tests 08/26/21 04:25 Patient resulted labs reviewed. Imaging: Reviewed Imaging Report Assessment/Plan Assessment and Plan Assess & Plan/Chief Complaint Acute respiratory failure due to COVID-19 TeleICU following Supplemental oxygen as needed, requiring Vapotherm/CPAP Increased Decadron s/p Actemra 08/21 Given a dose of Lasix, assess response New onset AFib with RVR Cardiology following Continue Diltiazem, Metoprolol, and Amiodarone Eliquis for stroke prophylaxis Anxiety Xanax Super obesity Clinically significant, no acute management needs Critical Care Critically Ill Patient Diagnosis/Problems Diagnosis/Problems (1) Acute respiratory failure due to COVID-19 Status: Acute (2) Atrial fibrillation with RVR Status: Acute (3) Super obesity Status: Chronic MCKAYLA DURÁN MD Aug 26, 2021 14:22
[2021-08-26] MEDS ORDERED: ALPRAZolam 0.25 MG (XANAX) TAB PO PRN (14:45)
[2021-08-26] MEDS: AMIODARONE 200 MG (CORDARONE) TAB PO SCH (20:37)
[2021-08-27] VITALS (53 sets, daily range): BP systolic 76–121; BP diastolic 39–96
[2021-08-27 04:17] LABS: BASOPHILS % (AUTO) 0 % (0-10); EOSINOPHILS % (AUTO) 0 % (0-10); HEMATOCRIT 49 % (40-54); HEMOGLOBIN 16.7 g/dL (13.3-17.7); LYMPHOCYTES % (AUTO) 5 % (12-44); MEAN CORPUSCULAR HEMOGLOBIN 30 pg (25-34); MEAN CORPUSCULAR HGB CONC 34 g/dL (32-36); MEAN CORPUSCULAR VOLUME 88 fL (80-99); MEAN PLATELET VOLUME 10.2 fL (9.0-12.2); MONOCYTES # (AUTO) 0.3 10^3/uL (0.0-1.0); MONOCYTES % (AUTO) 1 % (0-12); NEUTROPHILS # (AUTO) 18.1 10^3/uL (1.8-7.8); NEUTROPHILS % (AUTO) 91 % (42-75); PLATELET COUNT 302 10^3/uL (130-400); WHITE BLOOD COUNT 19.8 10^3/uL (4.3-11.0)
[2021-08-27 04:28] LABS: ALBUMIN 3.5 GM/DL (3.2-4.5); POTASSIUM 4.8 MMOL/L (3.6-5.0)
[2021-08-27 04:29] LABS: CALCIUM 8.7 MG/DL (8.5-10.1)
[2021-08-27] MEDS: RT-ALBUTEROL HFA 8.5 GM INHALER IH SCH ×6 (04:29→22:17)
[2021-08-27 04:30] LABS: TOTAL PROTEIN 6.8 GM/DL (6.4-8.2)
[2021-08-27 04:32] LABS: BILIRUBIN,TOTAL 0.9 MG/DL (0.1-1.0)
[2021-08-27 04:34] LABS: CREATININE SERUM 1.04 MG/DL (0.60-1.30); PHOSPHORUS 4.5 MG/DL (2.3-4.7)
[2021-08-27 04:37] LABS: MAGNESIUM 2.4 MG/DL (1.6-2.4)
[2021-08-27] MEDS: inSUlin ASPART (NovoLOG) 1 UNIT/0.01 ML (CHARGE PER UNIT) SC SCH ×4 (05:04→20:49)
[2021-08-27] MEDS: ALPRAZolam 0.5 MG (XANAX) TAB PO SCH ×2 (08:51→20:49)
[2021-08-27] MEDS: VIIBRYD 20 MG PO SCH (08:51)
[2021-08-27] MEDS: APIXABAN 5 MG (ELIQUIS) TABLET PO SCH ×2 (08:51→20:49)
[2021-08-27] MEDS: ACYCLOVIR 400 MG TABLET (ZOVIRAX) PO SCH ×2 (08:51→20:49)
[2021-08-27] MEDS: polyethylene glycoL POWDER 17 GM (MIRALAX) PACK PO SCH ×2 (08:52→21:06)
[2021-08-27] MEDS: SENNA W/DOCUSATE (SENOKOT S) TABLET PO SCH ×2 (08:52→21:06)
[2021-08-27] MEDS: AMIODARONE 200 MG (CORDARONE) TAB PO SCH ×2 (08:52→20:49)
--- NOTE | 2021-08-27 10:43 | Tele-ICU Progress Note ---
Subjective Date Seen by a Provider: Aug 27, 2021 Time Seen by a Provider: 10:42 Sepsis Event Evaluation Height, Weight, BMI Height: 5'9.00" Weight: 358lbs. 8.0oz. 162.146358wv; 55.85 BMI Method:Stated Exam Exam Patient acknowledged, consented, and participated in this virtual visit which was conducted using real time audio/video Vital Signs Date Time Temp Pulse Resp B/P (MAP) Pulse Ox O2 Delivery O2 Flow Rate FiO2 08/27/21 09:35 80 22 93 60.00 08/27/21 08:45 68 104/71 (79) 92 NIV CPAP 60.00 08/27/21 08:30 70 108/77 (90) 97 NIV CPAP 60.00 08/27/21 08:15 79 96/68 (81) 92 NIV CPAP 60.00 08/27/21 08:00 36.2 08/27/21 07:58 76 104/66 (73) 94 NIV CPAP 60.00 08/27/21 07:55 71 97/76 (82) 93 NIV CPAP 60.00 08/27/21 07:45 73 96 NIV CPAP 60.00 08/27/21 07:30 62 95 NIV CPAP 60.00 08/27/21 07:15 61 97 NIV CPAP 60.00 08/27/21 07:10 81 23 93 60.00 08/27/21 07:00 70 115/55 (63) 91 NIV CPAP 60.00 08/27/21 07:00 65 08/27/21 06:00 68 94/74 (81) 95 NIV CPAP 60.00 08/27/21 05:00 84 95/69 (78) 95 NIV CPAP 60.00 08/27/21 04:14 NIV CPAP 60 08/27/21 04:09 36.3 08/27/21 04:00 68 102/83 (89) 91 NIV CPAP 60.00 08/27/21 03:00 84 25 101/63 (76) 86 NIV CPAP 60.00 08/27/21 02:00 76 38 110/86 (94) 96 NIV CPAP 60.00 08/27/21 01:18 93 08/27/21 01:00 93 27 100/76 (84) 89 NIV CPAP 60.00 08/27/21 00:00 NIV CPAP 60 08/27/21 00:00 87 106/61 (76) 92 NIV CPAP 60.00 08/26/21 23:00 81 27 91/79 (83) 93 NIV CPAP 60.00 08/26/21 22:40 77 18 90 60.00 08/26/21 22:10 71 20 90 NIV CPAP 60.00 08/26/21 22:00 77 19 116/87 (97) 92 Vapotherm 40.00 100.00 08/26/21 21:30 76 21 120/90 (100) 91 Vapotherm 40.00 100.00 08/26/21 20:36 77 24 105/79 (88) 86 Vapotherm 40.00 100.00 08/26/21 20:36 35.8 08/26/21 20:00 NIV CPAP 60 08/26/21 19:00 55 104/78 (87) 93 NIV CPAP 60.00 08/26/21 19:00 55 08/26/21 18:21 71 24 93 60.00 08/26/21 18:15 67 94 08/26/21 18:00 63 120/81 (95) 92 08/26/21 17:45 91 NIV CPAP 60.00 08/26/21 17:30 117/88 (92) 89 NIV CPAP 08/26/21 17:15 92 NIV CPAP 60.00 08/26/21 17:00 68 18 128/87 (105) NIV CPAP 60.00 08/26/21 16:45 73 32 97 NIV CPAP 60.00 08/26/21 16:30 101/69 (76) 08/26/21 16:15 72 93 NIV CPAP 60.00 08/26/21 16:12 NIV CPAP 60 08/26/21 16:00 36.0 08/26/21 16:00 79 18 120/66 (78) 92 NIV CPAP 60.00 08/26/21 15:45 76 94 NIV CPAP 60.00 08/26/21 15:30 80 104/85 (93) 93 NIV CPAP 60.00 08/26/21 15:15 68 91 NIV CPAP 60.00 08/26/21 15:00 67 111/74 (85) 91 NIV CPAP 60.00 08/26/21 14:30 71 86/47 (78) 97 NIV CPAP 60.00 08/26/21 14:15 71 24 99 NIV CPAP 60.00 08/26/21 14:07 74 30 96 45.00 08/26/21 14:00 64 37 85/47 (64) 97 NIV CPAP 60.00 08/26/21 13:00 70 08/26/21 13:00 90/63 (74) 08/26/21 12:45 60 24 104/75 (80) 93 NIV CPAP 60.00 08/26/21 12:30 NIV CPAP 60 08/26/21 12:30 68 111/91 (101) 94 NIV CPAP 60.00 08/26/21 12:15 69 29 117/82 (103) 96 NIV CPAP 60.00 08/26/21 12:00 32 115/94 (104) 94 08/26/21 11:59 35.3 I & O 08/27/21 07:00 Intake Total 1270 ml Output Total 3250 ml Balance -1980 ml Height & Weight Height: 5'9.00" Weight: 358lbs. 8.0oz. 162.473717dg; 55.85 BMI Method:Stated General Appearance: No Apparent Distress, Obese HEENT: Normal ENT Inspection, Pharynx Normal, Moist Mucous Membranes Neck: Full Range of Motion, Normal Inspection, Non Tender Respiratory: No Respiratory Distress, Decreased Breath Sounds Cardiovascular: No Murmur, Irregularly Irregular Capillary Refill: Less Than 3 Seconds Peripheral Pulses: 2+ Radial Pulses (R), 2+ Radial Pulses (L) Gastrointestinal: non tender, soft Extremity: Normal Inspection, Non Tender, No Pedal Edema Neurologic/Psychiatric: Alert, Oriented x3, No Motor/Sensory Deficits, Depressed Affect Skin: Normal Color, Warm/Dry Lymphatic: No Adenopathy Results Lab Laboratory Tests 08/26/21 04:25 08/27/21 04:05 Assessment/Plan Assessment/Plan Video assessmnt done using teleICU camera, rest of exam as per RN Discussed with RN , EXAM PER RN Events overnight : Afebrile FiO2 - vt I/O = neg 600 ml Drips: Pressors: , hemodynamically stable Consultants: Hospital course: 08/19- + covid 08/20 - admitted 08/21 - to ICU with CPAP 08/25 - CPAP night 45% , VT 35L 95% 08/26 = CPAP 18 night 60 % , VT 40L 100 - poor tolerance - TRY DIURESIS x 1 and INCREASE STEROIDS 08/27 - CPAP 60 % A/P AHRF / ARDS due to severe COVID19 - WORSENING -on CPAP 18 cm at night - FIO2 NEEDS INCREASED TO 60% - VT 40L 100% - poor tolerance -> back to CPAP now 60% -prone position if able = poor tolerance - conservative fluid strategy (aim for even or negative fluid balance - TRY DIURESIS x 1 and INCREASE STEROIDS given wheezing -High risk for intubation RCAC-Nplhtlrlvgf-0/COVID-19 PNA ( DX unvaccinted --Dexamethasone - INCREASED to 10 tid on 08/25 -- s/p [id number]/ 24 , ( Acyclovir for HSV/VZV prophylaxis after Tocilizumab- 30 days 400 po bid ) -Hypercoagulable state , DDIMER= WNL on 08/22 -> eliquis 5 bid ( no evidence of large PE on CT 08/19) Suspected superimposed bact PNA -empiric abx started on 08/20- OFF NOW - Elev WBC_ can be related to steroids - neg PCT 08/26 and CXR not wersenin g New onset AFib with RVR -Cardiology following - amio gtt 08/25 ( cardizem gtt off- to stop amio gtt 08/26 - amio PO -Eliquis 5 bid Rising LFTs - follow closely ( not on remdesivir ) - as per RN exm - no tenderness RUQ Asthma - br-dil , steroids IV increased 08/26 due to wheezing Hyperglycemia - on steroids - ISS TICO- nocturnal BIPAP/CPAP Morbid ovesity Lines : PICC (Central Line Necessity Reviewed) Doty: void OG: Nutrition: PO ok Analgesia: Anxiety/ delirium VTE Prophylaxis: lovenox Stress Ulcer Prophylaxis: Po intake Plans in collaboration with bedside consultants and IM MDs. Discussed with RN to reach out if any questions or concerns A total of 32 minutes of critical care time was devoted to this patient today, required to treat and/or prevent further deterioration of critical care condition ( as above ) . MILTON ROGEL MD Aug 27, 2021 10:42
--- NOTE | 2021-08-27 11:18 | Cardiology Progress Note ---
Subjective Date Seen by Provider: Aug 27, 2021 Time Seen by Provider: 11:16 Subjective/Events-last exam Patient is in bed, worsening dyspnea, requiring a higher pressure on CPAP Review of Systems General: Fatigue, Malaise Pulmonary: Dyspnea Objective-Cardiology Exam Last Set of Vital Signs Vital Signs 08/27/21 08/27/21 08/27/21 08:00 08:45 09:35 Temp 36.2 Pulse 80 Resp 22 B/P (MAP) 104/71 (79) Pulse Ox 93 O2 Delivery NIV CPAP O2 Flow Rate 60.00 FiO2 60 I&O Intake and Output 08/27/21 00:00 Intake Total 1070 ml Output Total 2600 ml Balance -1530 ml Intake Oral 1070 ml Output Urine Total 2600 ml # Bowel Movements 1 General: Alert, Cooperative HEENT: Atraumatic Neck: Supple, No JVD, No Thyromegaly Lungs: Normal Air Movement Heart: Other (Atrial fibrillation) Abdomen: No Tenderness, No Hepatosplenomegaly, No Masses Neuro: Normal Speech, Sensation Intact Results Lab Laboratory Tests 08/27/21 04:05 A/P-Cardiology Admission Diagnosis Atrial fibrillation with rapid ventricular response COVID-19 pneumonia Acute respiratory failure COPD Assessment/Plan Paroxysmal atrial fibrillation, probably has underlying atrial fibrillation that patient was not aware of. Has been in atrial fibrillation since admission, rate is controlled, has been on anticoagulation without interruption. Continue on oral amiodarone [id number] score of 2, yearly risk of stroke without oral anticoagulation is 2.2%. Patient was on Lovenox, currently on Eliquis and tolerating medication well COVID-19 pneumonia, received Acterma, receiving Decadron, maintained on oxygen. Patient did not receive the vaccine. Acute respiratory failure, was on Vapotherm 100%, currently on CPAP. Slow progression, Managed by medical team Hypertension, Having borderline episode of low blood pressure, probably secondary to the blood pressure cuff positioning. Patient is asymptomatic. I will continue on current medication and monitor tolerance and response Obesity, BMI 53 increased risk of complication Obstructive sleep apnea. SUZANNE LINARES MD Aug 27, 2021 11:18
--- NOTE | 2021-08-27 19:11 | Progress Note - Hospitalist ---
Subjective HPI/CC On Admission Date Seen by Provider: Aug 27, 2021 Time Seen by Provider: 10:30 Chief complaint: COVID-19 pneumonia with acute hypoxic respiratory failure History present illness: This is a 46-year-old unvaccinated against Covid patient of Aamir Bauman in [place] who has a past medical history of hyperten gilbert and TICO who presents to the [place] ER with shortness of breath. He was diagnosed with Covid the day before was not hypoxic and sent home but returned today with increased shortness of breath and acute hypoxic respiratory failure requiring inpatient stay. He is currently now on 7 L and is high risk for progression. He may be in Actemra candidate. Poor IV access noted since his IV is a 24-gauge in his chest wall. Central line may be required. Checking meds and labs. Subjective/Events-last exam He is feeling about the same. He continues to deny shortness of breath. He has his CPAP mask on. He denies fevers. He has been eating and drinking. Objective Exam Vital Signs Vital Signs Date Time Temp Pulse Resp B/P (MAP) Pulse Ox O2 Delivery O2 Flow Rate FiO2 08/27/21 18:30 64 20 94 60.00 08/27/21 18:00 95/46 (72) NIV CPAP 08/27/21 16:00 60 08/27/21 11:20 35.8 Capillary Refill : Less Than 3 Seconds General Appearance: No Apparent Distress, Obese Respiratory: No Respiratory Distress, Decreased Breath Sounds Cardiovascular: No Edema, No Murmur, Irregularly Irregular Gastrointestinal: Normal Bowel Sounds, Non Tender, Soft Extremity: Normal Inspection, Non Tender, No Pedal Edema Neurologic/Psychiatric: Alert, Oriented x3, No Motor/Sensory Deficits Results/Procedures Lab Laboratory Tests 08/27/21 04:05 Patient resulted labs reviewed. Imaging: Reviewed Imaging Report Assessment/Plan Assessment and Plan Assess & Plan/Chief Complaint Acute respiratory failure due to COVID-19 TeleICU following Supplemental oxygen as needed, requiring Vapotherm/CPAP Continue Decadron s/p Actemra 08/21 Elevated LFTs Monitor New onset AFib with RVR Cardiology following Continue Diltiazem, Metoprolol, and Amiodarone Eliquis for stroke prophylaxis Anxiety Xanax Super obesity Clinically significant, no acute management needs Critical Care Critically Ill Patient Diagnosis/Problems Diagnosis/Problems (1) Acute respiratory failure due to COVID-19 Status: Acute (2) Atrial fibrillation with RVR Status: Acute (3) Super obesity Status: Chronic MCKAYLA DURÁN MD Aug 27, 2021 19:11
[2021-08-28] VITALS (54 sets, daily range): BP systolic 80–154; BP diastolic 51–101
[2021-08-28] MEDS: RT-ALBUTEROL HFA 8.5 GM INHALER IH SCH ×6 (01:58→22:14)
[2021-08-28 04:10] LABS: BASOPHILS # (AUTO) 0.1 10^3/uL (0.0-0.1); BASOPHILS % (AUTO) 0 % (0-10); EOSINOPHILS % (AUTO) 0 % (0-10); HEMATOCRIT 48 % (40-54); HEMOGLOBIN 16.3 g/dL (13.3-17.7); LYMPHOCYTES % (AUTO) 4 % (12-44); MEAN CORPUSCULAR HEMOGLOBIN 30 pg (25-34); MEAN CORPUSCULAR HGB CONC 34 g/dL (32-36); MEAN CORPUSCULAR VOLUME 88 fL (80-99); MEAN PLATELET VOLUME 10.3 fL (9.0-12.2); MONOCYTES # (AUTO) 0.5 10^3/uL (0.0-1.0); MONOCYTES % (AUTO) 2 % (0-12); NEUTROPHILS # (AUTO) 21.4 10^3/uL (1.8-7.8); NEUTROPHILS % (AUTO) 91 % (42-75); PLATELET COUNT 304 10^3/uL (130-400); WHITE BLOOD COUNT 23.7 10^3/uL (4.3-11.0)
[2021-08-28 04:19] LABS: ALBUMIN 3.4 GM/DL (3.2-4.5)
[2021-08-28 04:20] LABS: CALCIUM 8.6 MG/DL (8.5-10.1)
[2021-08-28 04:22] LABS: TOTAL PROTEIN 6.5 GM/DL (6.4-8.2)
[2021-08-28 04:23] LABS: BILIRUBIN,TOTAL 0.7 MG/DL (0.1-1.0)
[2021-08-28 04:25] LABS: CREATININE SERUM 0.93 MG/DL (0.60-1.30); PHOSPHORUS 4.1 MG/DL (2.3-4.7)
[2021-08-28 04:28] LABS: MAGNESIUM 2.4 MG/DL (1.6-2.4)
[2021-08-28] MEDS: morphine INJ 10 MG/ML 1ML (SYR OR VIAL) IVP PRN (04:36)
[2021-08-28] MEDS ORDERED: morphine INJ 10 MG/ML 1ML (SYR OR VIAL) IVP STA (05:09)
[2021-08-28] MEDS: HYDROcodone/APAP 5 MG/325 MG (LORTAB) TAB PO PRN ×2 (06:15→12:55)
[2021-08-28] MEDS: VIIBRYD 20 MG PO SCH (06:16)
[2021-08-28] MEDS: inSUlin ASPART (NovoLOG) 1 UNIT/0.01 ML (CHARGE PER UNIT) SC SCH ×4 (06:16→21:09)
[2021-08-28] MEDS: APIXABAN 5 MG (ELIQUIS) TABLET PO SCH ×2 (07:57→21:04)
[2021-08-28] MEDS: ACYCLOVIR 400 MG TABLET (ZOVIRAX) PO SCH ×2 (07:57→21:04)
[2021-08-28] MEDS: AMIODARONE 200 MG (CORDARONE) TAB PO SCH ×2 (07:57→21:04)
[2021-08-28] MEDS: ALPRAZolam 0.5 MG (XANAX) TAB PO SCH ×2 (07:58→21:04)
[2021-08-28] MEDS: SENNA W/DOCUSATE (SENOKOT S) TABLET PO SCH ×2 (09:03→21:04)
[2021-08-28] MEDS: polyethylene glycoL POWDER 17 GM (MIRALAX) PACK PO SCH ×2 (09:03→21:04)
--- NOTE | 2021-08-28 09:11 | Diagnostic Imaging Report ---
INDICATION: Pneumonia, COVID. Shortness of breath. TECHNIQUE: Single view chest 8:35 AM. CORRELATION STUDY: 08/26/2021 FINDINGS: Heart size and mediastinum remain enlarged and prominent. Vasculature is prominent. Bilateral particularly perihilar pulmonary opacities are present left greater than right. Overall findings may be slightly improved. IMPRESSION: 1. Stable cardiac enlargement mild vascular congestion. 2. Bilateral pulmonary infiltrate-like opacities persisting left greater than right but overall slightly improved from prior. Dictated by: Dictated on workstation # [id number]
--- NOTE | 2021-08-28 10:07 | Tele-ICU Progress Note ---
Subjective Date Seen by a Provider: Aug 28, 2021 Time Seen by a Provider: 09:20 Subjective/Events-last exam This virtual visit was conducted using real time audio/video. Thank you for asking us to see this patient for respiratory insufficiency due to Covid pna. Recent events: Costochondral pain. Desaturated with V.Therm. VSS. Morbid obesity. Afib 55/min. HEENT: No obvious masses, adenopathy or JVD. Chest: clear to auscultation. Diminished. CV: RRR S1 S2 No murmur or added sounds. Abd: Non-tender. Bowel sounds Y. : Unremarkable. Doty N. [employer] INTEGRATION ADVISOR/psychiatric: Grossly intact. No obvious focal findings. Extremities: No edema. Capillary refill < 3 seconds. Skin: unremarkable. Results: Elevated WCC 23.7, BUN 26, BG 160. CXR: Improved. Available chart/ vitals / labs / images reviewed. Video assessment done using teleICU camera, rest of exam as per RN. A/P: Respiratory insufficiency: Continue present management with CPAP 18/70%. Albuterol PRN. Monitor for increasing oxygenation needs and/or need for intubation. Critical Care: critically ill patient. Cont. Dex., Dilt., Metop., Eliquis, Amiod., SSI. Discussed with RN . Asked RN to reach out to eICU if any questions or concerns later. Time spent with patient/coordination of care with other health professionals (mins): 20 Sepsis Event Evaluation Height, Weight, BMI Height: 5'9.00" Weight: 358lbs. 8.0oz. [id number]; 55.85 BMI Method:Stated Exam Exam Patient acknowledged, consented, and participated in this virtual visit which was conducted using real time audio/video Vital Signs Date Time Temp Pulse Resp B/P (MAP) Pulse Ox O2 Delivery O2 Flow Rate FiO2 08/28/21 08:45 56 34 126/93 (104) 88 NIV CPAP 60.00 08/28/21 08:30 56 23 138/79 (116) 94 NIV CPAP 60.00 08/28/21 08:15 56 15 96 NIV CPAP 60.00 08/28/21 08:00 94 NIV CPAP 70 08/28/21 08:00 58 127/93 (111) 08/28/21 07:47 35.3 08/28/21 07:45 52 5 114/91 (99) 83 Vapotherm 40.00 100.00 08/28/21 07:30 66 11 98/64 (80) 83 Vapotherm 40.00 100.00 08/28/21 07:15 52 17 91/75 (81) 89 Vapotherm 40.00 100.00 08/28/21 07:00 48 15 94/51 (64) 85 NIV CPAP 70.00 08/28/21 07:00 64 08/28/21 06:57 91 Vapotherm 40.00 100 08/28/21 06:51 61 14 96 70.00 08/28/21 06:10 NIV CPAP 70.00 08/28/21 06:00 64 21 95/73 (80) 97 NIV CPAP 60.00 08/28/21 05:00 75 8 99/56 (70) 96 NIV CPAP 60.00 08/28/21 04:45 35.9 NIV CPAP 100.00 08/28/21 04:30 93 NIV CPAP 100 08/28/21 04:00 58 20 150/66 (94) 91 NIV CPAP 60.00 08/28/21 03:00 67 109/77 (88) 88 NIV CPAP 60.00 08/28/21 02:00 58 95/73 (80) 86 NIV CPAP 60.00 08/28/21 01:58 71 15 90 60.00 08/28/21 01:00 70 111/76 (88) 97 NIV CPAP 60.00 08/28/21 00:37 35.9 08/28/21 00:00 82 14 94/65 (75) 86 NIV CPAP 60.00 08/28/21 00:00 92 NIV CPAP 60 08/27/21 23:00 56 15 115/63 (80) 93 NIV CPAP 60.00 08/27/21 22:17 70 25 90 60.00 08/27/21 22:00 60 21 88/63 (71) 87 NIV CPAP 60.00 08/27/21 21:00 68 25 102/72 (82) 94 NIV CPAP 60.00 08/27/21 20:00 66 112/89 (97) 93 NIV CPAP 60.00 08/27/21 20:00 92 NIV CPAP 60 08/27/21 19:42 36.4 08/27/21 19:00 63 108/71 (83) 93 NIV CPAP 60.00 08/27/21 19:00 80 08/27/21 18:30 64 20 94 60.00 08/27/21 18:15 92 08/27/21 18:00 70 95/46 (72) 92 NIV CPAP 60.00 08/27/21 17:45 64 93 NIV CPAP 60.00 08/27/21 17:30 77 95/70 (77) 95 NIV CPAP 60.00 08/27/21 17:15 71 96/68 (79) 91 NIV CPAP 60.00 08/27/21 17:00 61 108/96 (100) 94 NIV CPAP 60.00 08/27/21 16:45 73 105/85 (89) 93 NIV CPAP 60.00 08/27/21 16:30 100/76 (87) 08/27/21 16:15 83 101/66 (76) 87 NIV CPAP 08/27/21 16:15 83 101/66 (76) 87 08/27/21 16:03 90/51 (69) 94 08/27/21 16:03 90/51 (69) 94 NIV CPAP 08/27/21 16:00 79 95 08/27/21 16:00 79 76/60 (67) 95 NIV CPAP 08/27/21 16:00 NIV CPAP 60 08/27/21 15:45 75 93/64 (68) 94 NIV CPAP 08/27/21 15:30 61 113/78 (87) 93 NIV CPAP 08/27/21 15:15 62 117/71 (79) 93 NIV CPAP 08/27/21 15:00 70 107/78 (100) 91 NIV CPAP 08/27/21 14:45 108/73 (85) 08/27/21 14:35 58 18 93 60.00 08/27/21 14:30 78 111/65 (80) 93 NIV CPAP 08/27/21 14:15 73 115/71 (80) 94 NIV CPAP 08/27/21 14:00 75 104/59 (85) 87 NIV CPAP 08/27/21 13:45 82 90/53 (64) 89 NIV CPAP 60.00 08/27/21 13:30 70 91 NIV CPAP 60.00 08/27/21 13:15 63 83/66 (70) 90 NIV CPAP 60.00 08/27/21 13:00 80 91 NIV CPAP 60.00 11/30/21 13:00 80 08/27/21 12:00 113/81 (88) 08/27/21 12:00 NIV CPAP 60 08/27/21 11:45 64 113/78 (100) 94 NIV CPAP 08/27/21 11:30 73 112/54 (78) 95 NIV CPAP 08/27/21 11:20 35.8 08/27/21 11:15 69 89/50 (73) 94 NIV CPAP 60.00 08/27/21 11:00 61 104/75 (86) 96 NIV CPAP 60.00 08/27/21 10:45 70 109/76 (89) 94 NIV CPAP 60.00 08/27/21 10:30 107/74 (89) 08/27/21 10:15 98/70 (78) I & O 08/28/21 07:00 Intake Total 2865 ml Output Total 2735 ml Balance 130 ml Height & Weight Height: 5'9.00" Weight: 358lbs. 8.0oz. [id number]; 55.85 BMI Method:Stated General Appearance: No Apparent Distress, Obese HEENT: Normal ENT Inspection, Pharynx Normal, Moist Mucous Membranes Neck: Full Range of Motion, Normal Inspection, Non Tender Respiratory: No Respiratory Distress, Decreased Breath Sounds Cardiovascular: No Edema, No Murmur, Irregularly Irregular Capillary Refill: Less Than 3 Seconds Peripheral Pulses: 2+ Radial Pulses (R), 2+ Radial Pulses (L) Gastrointestinal: non tender, soft Extremity: Normal Inspection, Non Tender, No Pedal Edema Neurologic/Psychiatric: Alert, Oriented x3, No Motor/Sensory Deficits Skin: Normal Color, Warm/Dry Lymphatic: No Adenopathy Results Lab Laboratory Tests 08/27/21 04:05 08/28/21 03:50 Assessment/Plan Assessment/Plan See free text. Critical Care: Critically Ill Patient JAGRUTI SANCHEZ MD Aug 28, 2021 10:07
--- NOTE | 2021-08-28 12:28 | Cardiology Progress Note ---
Subjective Date Seen by Provider: Aug 28, 2021 Time Seen by Provider: 12:27 Subjective/Events-last exam Patient is laying down in bed, still on BiPAP, short of breath. No chest pain. Review of Systems General: No Chills, No Night Sweats; Fatigue, Malaise; No Appetite, No Other HEENT: No Head Aches, No Visual Changes, No Eye Pain, No Ear Pain, No Dysphasia, No Sinus Congestion, No Post Nasal Drip, No Sore Throat, No Other Pulmonary: Dyspnea, Cough; No Pleuritic Chest Pain, No Other Cardiovascular: Chest Pain; No: Palpitations, Orthopnea, Paroxysmal Noc. Dyspnea, Edema, Lt Headedness, Other Objective-Cardiology Exam Last Set of Vital Signs Vital Signs 08/28/21 08/28/21 08/28/21 08/28/21 08:00 08:45 10:51 12:00 Temp 35.9 Pulse 68 Resp 24 B/P (MAP) 126/93 (104) Pulse Ox 94 O2 Delivery NIV CPAP O2 Flow Rate 70.00 FiO2 70 I&O Intake and Output 08/28/21 00:00 Intake Total 3115 ml Output Total 2860 ml Balance 255 ml Intake Oral 3115 ml Output Urine Total 2860 ml General: Alert, Cooperative HEENT: Atraumatic Neck: Supple, No JVD, No Thyromegaly Lungs: Normal Air Movement Heart: Normal S1, Normal S2, Other (Atrial fibrillation) Abdomen: No Tenderness, No Hepatosplenomegaly, No Masses Skin: No Rashes Neuro: Normal Speech, Sensation Intact Psych/Mental Status: Mental Status NL, Mood NL Results Lab Laboratory Tests 08/28/21 03:50 A/P-Cardiology Admission Diagnosis Atrial fibrillation with rapid ventricular response COVID-19 pneumonia Acute respiratory failure COPD Assessment/Plan Paroxysmal atrial fibrillation, probably has underlying atrial fibrillation that patient was not aware of. Has been in atrial fibrillation since admission, having few episodes of bradycardia, tolerating current medication well. Continue with amiodarone loading and continue on Cardizem and monitor tolerance and response Chest pain, reported an episode of chest pain earlier, appears to be reproducible on the chest, currently feeling better, no active chest pain was noted, EKG did not show any acute ischemic changes. [id number] score of 2, yearly risk of stroke without oral anticoagulation is 2.2%. Patient was on Lovenox, currently on Eliquis and tolerating medication well COVID-19 pneumonia, received Acterma, receiving Decadron, maintained on oxygen. Patient did not receive the vaccine. Acute respiratory failure, was on Vapotherm 100%, currently on CPAP. Slow progression, Managed by medical team Hypertension, Having borderline episode of low blood pressure, probably secondary to the blood pressure cuff positioning. Patient is asymptomatic. I will continue on current medication and monitor tolerance and response Obesity, BMI 53 increased risk of complication Obstructive sleep apnea. SUZANNE LINARES MD Aug 28, 2021 12:28
--- NOTE | 2021-08-28 14:53 | Progress Note - Hospitalist ---
Subjective HPI/CC On Admission Date Seen by Provider: Aug 28, 2021 Time Seen by Provider: 09:35 Chief complaint: COVID-19 pneumonia with acute hypoxic respiratory failure History present illness: This is a 46-year-old unvaccinated against Covid patient of Aamir Bauman in [place] who has a past medical history of hypertens ion and TICO who presents to the [place] ER with shortness of breath. He was diagnosed with Covid the day before was not hypoxic and sent home but returned today with increased shortness of breath and acute hypoxic respiratory failure requiring inpatient stay. He is currently now on 7 L and is high risk for progression. He may be in Actemra candidate. Poor IV access noted since his IV is a 24-gauge in his chest wall. Central line may be required. Checking meds and labs. Subjective/Events-last exam He is feeling the same. He does not feel short of breath. His oxygen saturations dropped when he was put on Vapotherm earlier. Objective Exam Vital Signs Vital Signs Date Time Temp Pulse Resp B/P (MAP) Pulse Ox O2 Delivery O2 Flow Rate FiO2 08/28/21 13:30 67 16 91 NIV CPAP 60.00 08/28/21 13:15 120/59 (74) 08/28/21 12:00 70 08/28/21 12:00 35.9 Capillary Refill : Less Than 3 Seconds General Appearance: No Apparent Distress, Obese Respiratory: No Respiratory Distress, Decreased Breath Sounds, Other (wearing CPAP) Cardiovascular: No Edema, No Murmur, Irregularly Irregular Gastrointestinal: Normal Bowel Sounds, Non Tender, Soft Extremity: Normal Inspection, Non Tender, No Pedal Edema Neurologic/Psychiatric: Alert, Oriented x3, No Motor/Sensory Deficits, Normal Mood/Affect Skin: Normal Color, Warm/Dry Results/Procedures Lab Laboratory Tests 08/28/21 03:50 Patient resulted labs reviewed. Imaging: Reviewed Imaging Report Assessment/Plan Assessment and Plan Assess & Plan/Chief Complaint Acute respiratory failure due to COVID-19 TeleICU following Continue Decadron s/p Actemra 08/21 Supplemental oxygen as needed, requiring CPAP High risk for intubation Elevated LFTs Monitor New onset AFib with RVR Cardiology following Continue Diltiazem, Metoprolol, and Amiodarone Eliquis for stroke prophylaxis Anxiety Xanax Super obesity Clinically significant, no acute management needs Critical Care Critically Ill Patient Diagnosis/Problems Diagnosis/Problems (1) Acute respiratory failure due to COVID-19 Status: Acute (2) Atrial fibrillation with RVR Status: Acute (3) Super obesity Status: Chronic MCKAYLA DURÁN MD Aug 28, 2021 14:53
[2021-08-29] VITALS (23 sets, daily range): BP systolic 87–134; BP diastolic 52–109
[2021-08-29] MEDS: RT-ALBUTEROL HFA 8.5 GM INHALER IH SCH ×3 (03:24→22:47)
[2021-08-29 03:30] LABS: BASOPHILS % (AUTO) 0 % (0-10); EOSINOPHILS % (AUTO) 0 % (0-10); HEMATOCRIT 48 % (40-54); LYMPHOCYTES # (AUTO) 0.8 10^3/uL (1.0-4.0); LYMPHOCYTES % (AUTO) 4 % (12-44); MEAN CORPUSCULAR HEMOGLOBIN 30 pg (25-34); MEAN CORPUSCULAR HGB CONC 34 g/dL (32-36); MEAN CORPUSCULAR VOLUME 89 fL (80-99); MEAN PLATELET VOLUME 9.9 fL (9.0-12.2); MONOCYTES # (AUTO) 0.6 10^3/uL (0.0-1.0); MONOCYTES % (AUTO) 3 % (0-12); NEUTROPHILS # (AUTO) 19.3 10^3/uL (1.8-7.8); NEUTROPHILS % (AUTO) 90 % (42-75); PLATELET COUNT 295 10^3/uL (130-400); WHITE BLOOD COUNT 21.4 10^3/uL (4.3-11.0)
[2021-08-29 03:53] LABS: ANISOCYTOSIS SLIGHT; LYMPHOCYTES % (MANUAL) 4 %; MICROCYTOSIS SLIGHT; MONOCYTES % (MANUAL) 3 %; NEUTROPHILS % (MANUAL) 93 %; POLYCHROMASIA SLIGHT
[2021-08-29 03:58] LABS: ALBUMIN 3.3 GM/DL (3.2-4.5)
[2021-08-29 03:59] LABS: CALCIUM 8.5 MG/DL (8.5-10.1)
[2021-08-29 04:00] LABS: TOTAL PROTEIN 6.3 GM/DL (6.4-8.2)
[2021-08-29 04:02] LABS: BILIRUBIN,TOTAL 0.8 MG/DL (0.1-1.0)
[2021-08-29 04:03] LABS: PHOSPHORUS 4.5 MG/DL (2.3-4.7)
[2021-08-29 04:04] LABS: CREATININE SERUM 1.01 MG/DL (0.60-1.30)
[2021-08-29 04:06] LABS: MAGNESIUM 2.5 MG/DL (1.6-2.4)
[2021-08-29] MEDS: MAGNESIUM 1 GM/100 ML IVPB 100 ML IV SCH (04:13)
[2021-08-29] MEDS: POTASSIUM CL 10MEQ/50ML IVPB 50 ML IV SCH (04:13)
[2021-08-29] MEDS: KCL 20 MEQ TAB (K-DUR) PO SCH (04:14)
[2021-08-29] MEDS: inSUlin ASPART (NovoLOG) 1 UNIT/0.01 ML (CHARGE PER UNIT) SC SCH ×4 (05:51→22:29)
[2021-08-29] MEDS: VIIBRYD 20 MG PO SCH (05:52)
[2021-08-29] MEDS: RT-ALBUTEROL HFA 8.5 GM INHALER IH PRN ×3 (07:13→14:27)
[2021-08-29] MEDS: ACYCLOVIR 400 MG TABLET (ZOVIRAX) PO SCH ×2 (09:33→22:30)
[2021-08-29] MEDS: APIXABAN 5 MG (ELIQUIS) TABLET PO SCH ×2 (09:33→22:30)
[2021-08-29] MEDS: SENNA W/DOCUSATE (SENOKOT S) TABLET PO SCH ×2 (09:33→22:31)
[2021-08-29] MEDS: ALPRAZolam 0.5 MG (XANAX) TAB PO SCH ×2 (09:33→22:30)
[2021-08-29] MEDS: polyethylene glycoL POWDER 17 GM (MIRALAX) PACK PO SCH ×2 (09:34→22:30)
[2021-08-29] MEDS: AMIODARONE 200 MG (CORDARONE) TAB PO SCH ×2 (09:37→22:30)
[2021-08-29] MEDS: morphine INJ 10 MG/ML 1ML (SYR OR VIAL) IVP PRN (11:01)
[2021-08-29] MEDS ORDERED: morphine INJ 4 MG/ML 1 ML (VIAL/SYRINGE) IVP PRN (11:15)
--- NOTE | 2021-08-29 11:50 | Tele-ICU Progress Note ---
Subjective Date Seen by a Provider: Aug 29, 2021 Time Seen by a Provider: 11:45 Subjective/Events-last exam Is a 53-year-old male who is morbidly obese with a BMI of 53 he apparently unvaccinated presented with a Covidpneumonia. He also has atrial fibrillation with rapid ventricular rate for which she is getting diltiazem drip. Is currently on a BiPAP ventilation on a as needed basis but now he is on Vapotherm at 40 L with 100% FiO2. Proning on and off. Video visit made and discussed with the patient also with the [employer]PER[employer] Gabriella Review of Systems ros per attending physician. Sepsis Event Evaluation Height, Weight, BMI Height: 5'9.00" Weight: 358lbs. 8.0oz. [id number]; 55.85 BMI Method:Stated Exam Exam Patient acknowledged, consented, and participated in this virtual visit which was conducted using real time audio/video Vital Signs Date Time Temp Pulse Resp B/P (MAP) Pulse Ox O2 Delivery O2 Flow Rate FiO2 08/29/21 11:00 86 24 132/80 (97) 95 NIV CPAP 70.00 08/29/21 10:55 NIV CPAP 70.00 08/29/21 10:10 78 24 99 75.00 08/29/21 10:00 77 25 123/74 (90) 96 NIV CPAP 75.00 08/29/21 09:50 NIV CPAP 75.00 08/29/21 09:30 Vapotherm 40.00 100.00 08/29/21 09:00 65 31 105/56 (72) 90 NIV CPAP 75.00 08/29/21 08:15 94 NIV CPAP 75 08/29/21 08:00 67 21 113/92 (99) 91 NIV CPAP 75.00 08/29/21 08:00 35.9 08/29/21 07:14 88 22 93 75.00 08/29/21 07:00 62 103/57 (72) 91 NIV CPAP 75.00 08/29/21 07:00 66 08/29/21 06:00 71 13 103/73 (83) 95 NIV CPAP 75.00 08/29/21 05:08 74 24 104/62 (76) 90 NIV CPAP 08/29/21 04:00 65 12 106/76 (86) 93 NIV CPAP 08/29/21 04:00 35.9 08/29/21 04:00 91 NIV CPAP 75 08/29/21 03:24 61 16 91 75.00 08/29/21 03:00 64 23 87/72 (77) 89 NIV CPAP 08/29/21 02:00 64 23 107/70 (82) 84 NIV CPAP 08/29/21 01:00 71 17 114/90 (98) 94 NIV CPAP 08/29/21 01:00 61 08/29/21 00:00 60 15 107/95 (99) 87 NIV CPAP 08/29/21 00:00 91 NIV CPAP 70 08/28/21 23:24 36.0 08/28/21 23:00 65 12 121/67 (85) 88 NIV CPAP 08/28/21 22:14 61 22 91 70.00 08/28/21 22:00 49 21 122/78 (93) 87 NIV CPAP 08/28/21 21:00 53 46 141/77 (98) 89 NIV CPAP 08/28/21 20:00 91 NIV CPAP 70 08/28/21 20:00 71 12 111/79 (90) 86 NIV CPAP 08/28/21 19:49 35.8 08/28/21 19:00 63 08/28/21 19:00 69 28 127/81 (96) 91 NIV CPAP 08/28/21 18:31 76 24 93 70.00 08/28/21 18:00 70 30 92/56 (67) 82 NIV CPAP 08/28/21 17:30 69 29 121/85 (102) 87 NIV CPAP 60.00 08/28/21 17:15 59 25 118/95 (98) 86 NIV CPAP 60.00 08/28/21 17:00 71 25 88 NIV CPAP 60.00 08/28/21 16:45 69 25 144/94 (116) 86 NIV CPAP 60.00 08/28/21 16:30 62 24 131/83 (98) 86 NIV CPAP 60.00 08/28/21 16:22 36.3 08/28/21 16:15 66 25 130/70 (87) 89 NIV CPAP 60.00 08/28/21 16:10 91 NIV CPAP 70 08/28/21 16:00 67 27 116/59 (91) 89 NIV CPAP 60.00 08/28/21 15:15 55 14 117/70 (77) 91 NIV CPAP 60.00 08/28/21 15:04 64 13 90 70.00 08/28/21 15:00 80 28 109/90 (99) 89 NIV CPAP 60.00 08/28/21 14:45 69 45 106/74 (86) 94 NIV CPAP 60.00 08/28/21 14:30 73 29 123/91 (95) 91 NIV CPAP 60.00 08/28/21 14:15 69 27 112/71 (76) 92 NIV CPAP 60.00 08/28/21 14:00 63 36 129/79 (94) 92 NIV CPAP 60.00 08/28/21 13:45 61 27 119/80 (95) 91 NIV CPAP 60.00 08/28/21 13:30 67 16 91 NIV CPAP 60.00 08/28/21 13:15 53 12 120/59 (74) 90 NIV CPAP 60.00 08/28/21 13:00 58 08/28/21 13:00 66 29 134/86 (97) 89 NIV CPAP 60.00 08/28/21 12:45 57 22 135/91 (97) 92 NIV CPAP 60.00 08/28/21 12:30 72 29 154/99 (134) 95 NIV CPAP 60.00 08/28/21 12:15 71 27 138/101 (107) 93 NIV CPAP 60.00 08/28/21 12:00 71 26 131/89 (104) 91 NIV CPAP 60.00 08/28/21 12:00 93 NIV CPAP 70 08/28/21 12:00 35.9 08/28/21 12:00 131/89 (104) I & O 08/29/21 07:00 Intake Total 2580 ml Output Total 2450 ml Balance 130 ml Height & Weight Height: 5'9.00" Weight: 358lbs. 8.0oz. [id number]; 55.85 BMI Method:Stated General Appearance: No Apparent Distress, Obese HEENT: Normal ENT Inspection, Pharynx Normal, Moist Mucous Membranes Neck: Full Range of Motion, Normal Inspection, Non Tender Respiratory: No Respiratory Distress, Decreased Breath Sounds, Other (wearing CPAP) Cardiovascular: No Edema, No Murmur, Irregularly Irregular Capillary Refill: Less Than 3 Seconds Peripheral Pulses: 2+ Radial Pulses (R), 2+ Radial Pulses (L) Gastrointestinal: non tender, soft Extremity: Normal Inspection, Non Tender, No Pedal Edema Neurologic/Psychiatric: Alert, Oriented x3, No Motor/Sensory Deficits, Normal Mood/Affect Skin: Normal Color, Warm/Dry Lymphatic: No Adenopathy Other comments PE per atending Results Lab Laboratory Tests 08/28/21 03:50 08/29/21 03:15 Meds reviewed Radiology reviewed cxr Assessment/Plan Assessment/Plan 1. Acute Covid19 pneumonia 2. Acute hypoxic respiratory failure secondary to Covid pneumonia 3. Superadded viral pneumonia cannot be ruled out 4. Atrial fibrillation with rapid ventricular rate 5. Hyperglycemia probably due to steroids Recommendations we will continue Vapotherm at 40 L and 100% FiO2 and wean FiO2 as tolerated. We will use BiPAP ventilation on a as needed basis. Advised her to prone him on and off. 2. Continue dexamethasone. 3. Apixaban for stroke prevention and DVT prophylaxis. 4. Continue metoprolol and diltiazem drip for control of atrial fibrillation. Acyclovir for possible viral pneumonia. 5. Insulin with sliding scale coverage for hyperglycemia management Critical Care: Critically Ill Patient Time spent with patient (mins): 25 CATARINO HART MD Aug 29, 2021 11:50
--- NOTE | 2021-08-29 12:40 | Cardiology Progress Note ---
Subjective Date Seen by Provider: Aug 29, 2021 Time Seen by Provider: 08:00 Subjective/Events-last exam Patient was seen at bedside, I did not examine the patient I visited with the nurse and discussed his management plan. He is still on CPAP and requiring oxygen. Cardizem was held yesterday due to bradycardia, heart rate is better today. Review of Systems General: No Chills, No Night Sweats; Fatigue, Malaise; No Appetite, No Other HEENT: No Head Aches, No Visual Changes, No Eye Pain, No Ear Pain, No Dysphasia, No Sinus Congestion, No Post Nasal Drip, No Sore Throat, No Other Pulmonary: Dyspnea; No Cough, No Pleuritic Chest Pain, No Other Cardiovascular: No: Chest Pain, Palpitations, Orthopnea, Paroxysmal Noc. Dyspn ea, Edema, Lt Headedness, Other Objective-Cardiology Exam Last Set of Vital Signs Vital Signs 08/29/21 08/29/21 08/29/21 08:15 11:00 12:05 Temp 36.1 Pulse 86 Resp 24 B/P (MAP) 132/80 (97) Pulse Ox 95 O2 Delivery NIV CPAP O2 Flow Rate 70.00 FiO2 75 I&O Intake and Output 08/29/21 00:00 Intake Total 2180 ml Output Total 2575 ml Balance -395 ml Intake Oral 2180 ml Output Urine Total 2575 ml General: Alert, Cooperative HEENT: Atraumatic Neck: Supple, No JVD, No Thyromegaly Lungs: Normal Air Movement Heart: Other (Atrial fibrillation) Abdomen: No Tenderness, No Hepatosplenomegaly, No Masses Skin: No Rashes Neuro: Normal Speech, Sensation Intact Psych/Mental Status: Mental Status NL, Mood NL Results Lab Laboratory Tests 08/29/21 03:15 A/P-Cardiology Admission Diagnosis Atrial fibrillation with rapid ventricular response COVID-19 pneumonia Acute respiratory failure COPD Assessment/Plan Paroxysmal atrial fibrillation, probably has underlying atrial fibrillation that patient was not aware of. Has been in atrial fibrillation since admission, having few episodes of bradycardia, tolerating current medication well. Continue with amiodarone loading and continue on Cardizem and monitor tolerance and response Chest pain, reported an episode of chest pain earlier, appears to be reproducible on the chest, currently feeling better, no active chest pain was noted, EKG did not show any acute ischemic changes. [id number] score of 2, yearly risk of stroke without oral anticoagulation is 2.2%. Patient was on Lovenox, currently on Eliquis and tolerating medication well COVID-19 pneumonia, received Acterma, receiving Decadron, maintained on oxygen. Patient did not receive the vaccine. Acute respiratory failure, was on Vapotherm 100%, currently on CPAP. Slow progression, Managed by medical team Hypertension, Having borderline episode of low blood pressure, probably secondary to the blood pressure cuff positioning. Patient is asymptomatic. I will continue on current medication and monitor tolerance and response Obesity, BMI 53 increased risk of complication Obstructive sleep apnea. SUZANNE LINARES MD Aug 29, 2021 12:40
[2021-08-29] MEDS: HYDROcodone/APAP 5 MG/325 MG (LORTAB) TAB PO PRN (12:56)
--- NOTE | 2021-08-29 18:27 | Progress Note - Hospitalist ---
Subjective HPI/CC On Admission Date Seen by Provider: Aug 29, 2021 Time Seen by Provider: 09:45 Chief complaint: COVID-19 pneumonia with acute hypoxic respiratory failure History present illness: This is a 46-year-old unvaccinated against Covid patient of Aamir Bauman in [place] who has a past medical history of hypertens ion and TICO who presents to the [place] ER with shortness of breath. He was diagnosed with Covid the day before was not hypoxic and sent home but returned today with increased shortness of breath and acute hypoxic respiratory failure requiring inpatient stay. He is currently now on 7 L and is high risk for progression. He may be in Actemra candidate. Poor IV access noted since his IV is a 24-gauge in his chest wall. Central line may be required. Checking meds and labs. Subjective/Events-last exam He is doing the same. He is not short of breath. His cough persists. He is still on CPAP. His appetite is good. Objective Exam Vital Signs Vital Signs Date Time Temp Pulse Resp B/P (MAP) Pulse Ox O2 Delivery O2 Flow Rate FiO2 08/29/21 17:59 Vapotherm 40.00 100.00 08/29/21 16:00 96 70 08/29/21 16:00 77 17 132/76 (94) 08/29/21 12:05 36.1 Capillary Refill : Less Than 3 Seconds General Appearance: No Apparent Distress, Obese Respiratory: No Respiratory Distress, Decreased Breath Sounds, Other (wearing CPAP) Cardiovascular: No Edema, No Murmur, Irregularly Irregular Gastrointestinal: Normal Bowel Sounds, Non Tender, Soft Extremity: Normal Inspection, Non Tender, No Pedal Edema Neurologic/Psychiatric: Alert, Oriented x3, No Motor/Sensory Deficits Skin: Normal Color, Warm/Dry Results/Procedures Lab Laboratory Tests 08/29/21 03:15 Patient resulted labs reviewed. Imaging: Reviewed Imaging Report Assessment/Plan Assessment and Plan Assess & Plan/Chief Complaint Acute respiratory failure due to COVID-19 TeleICU following Continue Decadron s/p Actemra 08/21 Supplemental oxygen as needed, requiring CPAP High risk for intubation Elevated LFTs Monitor New onset AFib with RVR Cardiology following Continue Diltiazem, Metoprolol, and Amiodarone Eliquis for stroke prophylaxis Anxiety Xanax Super obesity Clinically significant, no acute management needs Critical Care Critically Ill Patient Diagnosis/Problems Diagnosis/Problems (1) Acute respiratory failure due to COVID-19 Status: Acute (2) Atrial fibrillation with RVR Status: Acute (3) Super obesity Status: Chronic MCKAYLA DURÁN MD Aug 29, 2021 18:27
[2021-08-30] VITALS (32 sets, daily range): BP systolic 85–172; BP diastolic 46–136
[2021-08-30] MEDS: RT-ALBUTEROL HFA 8.5 GM INHALER IH SCH ×6 (02:43→22:14)
[2021-08-30 06:35] LABS: BASOPHILS % (AUTO) 0 % (0-10); EOSINOPHILS % (AUTO) 0 % (0-10); HEMATOCRIT 47 % (40-54); HEMOGLOBIN 15.9 g/dL (13.3-17.7); LYMPHOCYTES # (AUTO) 0.6 10^3/uL (1.0-4.0); LYMPHOCYTES % (AUTO) 3 % (12-44); MEAN CORPUSCULAR HEMOGLOBIN 30 pg (25-34); MEAN CORPUSCULAR HGB CONC 34 g/dL (32-36); MEAN CORPUSCULAR VOLUME 90 fL (80-99); MEAN PLATELET VOLUME 10.4 fL (9.0-12.2); MONOCYTES # (AUTO) 0.6 10^3/uL (0.0-1.0); MONOCYTES % (AUTO) 3 % (0-12); NEUTROPHILS # (AUTO) 19.4 10^3/uL (1.8-7.8); NEUTROPHILS % (AUTO) 92 % (42-75); PLATELET COUNT 275 10^3/uL (130-400); WHITE BLOOD COUNT 21.2 10^3/uL (4.3-11.0)
[2021-08-30 06:39] LABS: ALBUMIN 3.3 GM/DL (3.2-4.5)
[2021-08-30 06:40] LABS: POTASSIUM 5.6 MMOL/L (3.6-5.0)
[2021-08-30 06:41] LABS: CALCIUM 8.6 MG/DL (8.5-10.1)
[2021-08-30 06:42] LABS: TOTAL PROTEIN 6.3 GM/DL (6.4-8.2)
[2021-08-30] MEDS: POTASSIUM CL 10MEQ/50ML IVPB 50 ML IV SCH (06:43)
[2021-08-30 06:44] LABS: BILIRUBIN,TOTAL 0.9 MG/DL (0.1-1.0)
[2021-08-30] MEDS: KCL 20 MEQ TAB (K-DUR) PO SCH (06:44)
[2021-08-30] MEDS: inSUlin ASPART (NovoLOG) 1 UNIT/0.01 ML (CHARGE PER UNIT) SC SCH ×4 (06:44→22:05)
[2021-08-30 06:45] LABS: PHOSPHORUS 4.3 MG/DL (2.3-4.7)
[2021-08-30 06:46] LABS: CREATININE SERUM 1.09 MG/DL (0.60-1.30)
[2021-08-30 06:48] LABS: MAGNESIUM 2.6 MG/DL (1.6-2.4)
[2021-08-30] MEDS: MAGNESIUM 1 GM/100 ML IVPB 100 ML IV SCH (06:51)
[2021-08-30] MEDS: VIIBRYD 20 MG PO SCH (07:52)
[2021-08-30] MEDS: polyethylene glycoL POWDER 17 GM (MIRALAX) PACK PO SCH ×2 (09:54→22:05)
[2021-08-30] MEDS: AMIODARONE 200 MG (CORDARONE) TAB PO SCH ×2 (09:54→22:04)
[2021-08-30] MEDS: ACYCLOVIR 400 MG TABLET (ZOVIRAX) PO SCH ×2 (09:54→22:05)
[2021-08-30] MEDS: APIXABAN 5 MG (ELIQUIS) TABLET PO SCH ×2 (09:54→22:04)
[2021-08-30] MEDS: SENNA W/DOCUSATE (SENOKOT S) TABLET PO SCH ×2 (09:54→22:05)
[2021-08-30] MEDS: ALPRAZolam 0.5 MG (XANAX) TAB PO SCH ×2 (09:54→22:05)
--- NOTE | 2021-08-30 10:43 | Cardiology Progress Note ---
Subjective Date Seen by Provider: Aug 30, 2021 Time Seen by Provider: 10:42 Subjective/Events-last exam Patient was seen at bedside, laying down in bed Still on CPAP, I did not examine the patient during this visit I evaluated the patient, reviewed his records and reviewed his lab results and vitals. Objective-Cardiology Exam Last Set of Vital Signs Vital Signs 08/30/21 08/30/21 08/30/21 08/30/21 04:00 08:45 09:00 09:15 Pulse 70 Resp 29 B/P (MAP) 123/96 (104) Pulse Ox 87 O2 Delivery NIV CPAP O2 Flow Rate 70.00 FiO2 70 I&O Intake and Output 08/30/21 00:00 Intake Total 2170 ml Output Total 1650 ml Balance 520 ml Intake Oral 2170 ml Output Urine Total 1650 ml # Voids 6 General: Alert, Cooperative HEENT: Atraumatic Neck: Supple, No JVD, No Thyromegaly Lungs: Normal Air Movement Heart: Other (Atrial fibrillation) Abdomen: No Tenderness, No Hepatosplenomegaly, No Masses Neuro: Normal Speech, Sensation Intact Psych/Mental Status: Mental Status NL, Mood NL Results Lab Laboratory Tests 08/30/21 06:00 A/P-Cardiology Admission Diagnosis Atrial fibrillation with rapid ventricular response COVID-19 pneumonia Acute respiratory failure COPD Assessment/Plan Paroxysmal atrial fibrillation, probably has underlying atrial fibrillation that patient was not aware of. Has been in atrial fibrillation since admission, having few episodes of bradycardia, tolerating current medication well. Tolerating amiodarone and Cardizem well. Continue to monitor, no changes are recommended Chest pain, reported an episode of chest pain earlier, appears to be reproducible on the chest, currently feeling better, no active chest pain was noted, EKG did not show any acute ischemic changes. [id number] score of 2, yearly risk of stroke without oral anticoagulation is 2.2%. Patient was on Lovenox, currently on Eliquis and tolerating medication well COVID-19 pneumonia, received Acterma, receiving Decadron, maintained on CPAP, managed by primary care team Acute respiratory failure, was on Vapotherm 100%, currently on CPAP. Slow progression, Managed by medical team Hypertension, Having borderline episode of low blood pressure, probably secondary to the blood pressure cuff positioning. Patient is asymptomatic. I will continue on current medication and monitor tolerance and response Obesity, BMI 53 increased risk of complication Obstructive sleep apnea. SUZANNE LINARES MD Aug 30, 2021 10:43
--- NOTE | 2021-08-30 13:37 | Tele-ICU Progress Note ---
Subjective Date Seen by a Provider: Aug 30, 2021 Time Seen by a Provider: 10:11 Subjective/Events-last exam Video visit made and discussed with the patient and he states that his breathing is about the same. He is on a CPAP. Tolerating BiPAP okay but when he has to eat he is going on Vapotherm and his oxygen saturation is dropping. Blood pressure is stable Review of Systems ros per attending physician. Sepsis Event Evaluation Height, Weight, BMI Height: 5'9.00" Weight: 358lbs. 8.0oz. 162.476939az; 55.85 BMI Method:Stated Exam Exam Patient acknowledged, consented, and participated in this virtual visit which was conducted using real time audio/video Vital Signs Date Time Temp Pulse Resp B/P (MAP) Pulse Ox O2 Delivery O2 Flow Rate FiO2 08/30/21 12:00 35.7 08/30/21 11:30 71 18 124/82 (97) 94 NIV CPAP 70.00 08/30/21 11:15 79 17 93 NIV CPAP 70.00 08/30/21 11:09 82 19 93 65.00 08/30/21 11:00 65 18 128/70 (77) 93 NIV CPAP 70.00 08/30/21 10:45 70 22 94 NIV CPAP 70.00 08/30/21 10:30 129/67 (85) 08/30/21 10:15 80 22 95 NIV CPAP 70.00 08/30/21 10:07 86 20 101/66 (83) NIV CPAP 70.00 08/30/21 10:00 64 22 NIV CPAP 08/30/21 09:45 71 23 08/30/21 09:30 66 17 120/79 (89) 08/30/21 09:15 70 29 NIV CPAP 70.00 08/30/21 09:15 70 29 88 08/30/21 09:00 123/96 (104) 08/30/21 09:00 123/96 (104) 08/30/21 08:45 64 18 87 NIV CPAP 70.00 08/30/21 08:30 67 27 108/74 (84) NIV CPAP 70.00 08/30/21 08:15 61 18 92 NIV CPAP 70.00 08/30/21 08:00 35.8 08/30/21 08:00 76 24 94/46 (56) 90 NIV CPAP 70.00 08/30/21 08:00 NIV CPAP 70 08/30/21 07:45 63 19 93 NIV CPAP 70.00 08/30/21 07:30 71 17 113/82 (92) 93 NIV CPAP 70.00 08/30/21 07:15 64 27 93 NIV CPAP 70.00 08/30/21 07:05 69 19 95 65.00 08/30/21 07:00 124/80 (95) 08/30/21 07:00 73 08/30/21 06:00 76 24 110/58 (75) 96 NIV CPAP 70.00 08/30/21 05:00 76 24 85/48 (60) 96 NIV CPAP 70.00 08/30/21 04:00 96 NIV CPAP 70 08/30/21 04:00 60 20 109/76 (87) 90 NIV CPAP 70.00 08/30/21 03:00 64 23 120/68 (85) 91 NIV CPAP 70.00 08/30/21 02:43 75 14 97 70.00 08/30/21 02:00 60 22 99/64 (76) 94 NIV CPAP 70.00 08/30/21 01:00 85 16 107/56 (73) 96 NIV CPAP 70.00 08/30/21 01:00 72 08/30/21 00:00 69 18 107/73 (84) 96 NIV CPAP 70.00 08/30/21 00:00 96 NIV CPAP 70 08/29/21 23:00 65 20 109/68 (82) 98 NIV CPAP 70.00 08/29/21 22:47 88 19 95 75.00 08/29/21 22:00 87 23 89/52 (64) 93 NIV CPAP 70.00 08/29/21 21:00 64 23 114/79 (91) 95 NIV CPAP 70.00 08/29/21 20:00 79 26 116/72 (87) 90 NIV CPAP 70.00 08/29/21 20:00 96 NIV CPAP 70 08/29/21 19:05 99 22 90 75.00 08/29/21 19:00 76 24 96 NIV CPAP 70.00 08/29/21 19:00 70 08/29/21 18:00 87 112/65 (81) 94 Vapotherm 40.00 100.00 08/29/21 17:59 Vapotherm 40.00 100.00 08/29/21 17:00 78 12 121/58 (79) 89 NIV CPAP 70.00 08/29/21 16:00 96 NIV CPAP 70 08/29/21 16:00 77 17 132/76 (94) 95 NIV CPAP 70.00 08/29/21 15:00 75 14 105/80 (88) 95 NIV CPAP 70.00 08/29/21 14:28 99 22 96 75.00 08/29/21 14:05 NIV CPAP 70.00 08/29/21 14:00 93 19 134/109 (117) 94 Vapotherm 40.00 100.00 I & O 08/30/21 07:00 Intake Total 2070 ml Output Total 1250 ml Balance 820 ml Height & Weight Height: 5'9.00" Weight: 358lbs. 8.0oz. 162.228169bb; 55.85 BMI Method:Stated General Appearance: No Apparent Distress, Obese HEENT: Normal ENT Inspection, Pharynx Normal, Moist Mucous Membranes Neck: Full Range of Motion, Normal Inspection, Non Tender Respiratory: No Respiratory Distress, Decreased Breath Sounds, Other (wearing CPAP) Cardiovascular: No Edema, No Murmur, Irregularly Irregular Capillary Refill: Less Than 3 Seconds Peripheral Pulses: 2+ Radial Pulses (R), 2+ Radial Pulses (L) Gastrointestinal: non tender, soft Extremity: Normal Inspection, Non Tender, No Pedal Edema Neurologic/Psychiatric: Alert, Oriented x3, No Motor/Sensory Deficits Skin: Normal Color, Warm/Dry Lymphatic: No Adenopathy Other comments PE PER ATENDING PHYSICIAN Results Lab Laboratory Tests 08/29/21 03:15 08/30/21 06:00 Meds REVIEWED Radiology CXR REVIEWED Assessment/Plan Assessment/Plan 1. Acute Covid19 pneumonia 2. Acute hypoxic respiratory failure secondary to Covid pneumonia 3. Superadded viral pneumonia cannot be ruled out 4. Atrial fibrillation with rapid ventricular rate 5. Hyperglycemia probably due to steroids Recommendations we will continue Vapotherm at 40 L and 100% FiO2 and wean FiO2 as tolerated. We will use BiPAP ventilation on a as needed basis. Advised her to prone him on and off. 2. Continue dexamethasone. 3. Apixaban for stroke prevention and DVT prophylaxis. 4. Continue metoprolol and diltiazem drip for control of atrial fibrillation. Acyclovir for possible viral pneumonia. 5. Insulin with sliding scale coverage for hyperglycemia management. Critical Care: Critically Ill Patient Time spent with patient (mins): 25 CATARINO HART MD Aug 30, 2021 13:37
--- NOTE | 2021-08-30 21:21 | Progress Note - Hospitalist ---
Subjective HPI/CC On Admission Date Seen by Provider: Aug 30, 2021 Time Seen by Provider: 09:45 Chief complaint: COVID-19 pneumonia with acute hypoxic respiratory failure History present illness: This is a 46-year-old unvaccinated against Covid patient of Aamir Bauman in [place] who has a past medical history of hypertens ion and TICO who presents to the [place] [facility] with shortness of breath. He was diagnosed with Covid the day before was not hypoxic and sent home but returned today with increased shortness of breath and acute hypoxic respiratory failure requiring inpatient stay. He is currently now on 7 L and is high risk for progression. He may be in Actemra candidate. Poor IV access noted since his IV is a 24-gauge in his chest wall. Central line may be required. Checking meds and labs. Subjective/Events-last exam He is feeling about the same. He is not short of breath. He is hungry. He is not having fevers. Objective Exam Vital Signs Vital Signs Date Time Temp Pulse Resp B/P (MAP) Pulse Ox O2 Delivery O2 Flow Rate FiO2 08/30/21 20:50 36.0 08/30/21 20:00 NIV CPAP 65 08/30/21 19:00 86 08/30/21 18:57 21 90 65.00 08/30/21 17:30 108/77 (89) Capillary Refill : Less Than 3 Seconds General Appearance: No Apparent Distress, Obese Respiratory: Lungs Clear, Normal Breath Sounds, No Respiratory Distress Cardiovascular: Regular Rate, Rhythm, No Edema, No Murmur Gastrointestinal: Normal Bowel Sounds, Non Tender, Soft Extremity: Normal Inspection, Non Tender, No Pedal Edema Neurologic/Psychiatric: Alert, Oriented x3, No Motor/Sensory Deficits, Normal Mood/Affect Skin: Normal Color, Warm/Dry Results/Procedures Lab Laboratory Tests 08/30/21 06:00 Patient resulted labs reviewed. Imaging: Reviewed Imaging Report Assessment/Plan Assessment and Plan Assess & Plan/Chief Complaint Acute respiratory failure due to COVID-19 TeleICU following Continue Decadron s/p Actemra 08/21 Supplemental oxygen as needed, requiring CPAP High risk for intubation Elevated LFTs Monitor New onset AFib with RVR Cardiology following Continue Diltiazem, Metoprolol, and Amiodarone Eliquis for stroke prophylaxis Anxiety Xanax Super obesity Clinically significant, no acute management needs Critical Care Critically Ill Patient Diagnosis/Problems Diagnosis/Problems (1) Acute respiratory failure due to COVID-19 Status: Acute (2) Atrial fibrillation with RVR Status: Acute (3) Super obesity Status: Chronic MCKAYLA DURÁN MD Aug 30, 2021 21:21
[2021-08-31] VITALS (29 sets, daily range): BP systolic 72–137; BP diastolic 50–107
[2021-08-31] MEDS: RT-ALBUTEROL HFA 8.5 GM INHALER IH SCH ×6 (02:14→22:16)
[2021-08-31 06:18] LABS: BASOPHILS % (AUTO) 0 % (0-10); EOSINOPHILS % (AUTO) 0 % (0-10); HEMATOCRIT 47 % (40-54); HEMOGLOBIN 15.7 g/dL (13.3-17.7); LYMPHOCYTES # (AUTO) 0.5 10^3/uL (1.0-4.0); LYMPHOCYTES % (AUTO) 3 % (12-44); MEAN CORPUSCULAR HEMOGLOBIN 30 pg (25-34); MEAN CORPUSCULAR HGB CONC 33 g/dL (32-36); MEAN CORPUSCULAR VOLUME 90 fL (80-99); MEAN PLATELET VOLUME 10.3 fL (9.0-12.2); MONOCYTES # (AUTO) 0.6 10^3/uL (0.0-1.0); MONOCYTES % (AUTO) 3 % (0-12); NEUTROPHILS # (AUTO) 18.2 10^3/uL (1.8-7.8); NEUTROPHILS % (AUTO) 92 % (42-75); PLATELET COUNT 253 10^3/uL (130-400); WHITE BLOOD COUNT 19.8 10^3/uL (4.3-11.0)
[2021-08-31] MEDS: inSUlin ASPART (NovoLOG) 1 UNIT/0.01 ML (CHARGE PER UNIT) SC SCH ×3 (06:22→15:58)
[2021-08-31] MEDS: VIIBRYD 20 MG PO SCH (06:22)
[2021-08-31 06:37] LABS: ALBUMIN 3.3 GM/DL (3.2-4.5); POTASSIUM 5.5 MMOL/L (3.6-5.0)
[2021-08-31 06:38] LABS: CALCIUM 8.5 MG/DL (8.5-10.1)
[2021-08-31 06:39] LABS: TOTAL PROTEIN 6.1 GM/DL (6.4-8.2)
[2021-08-31 06:41] LABS: BILIRUBIN,TOTAL 0.9 MG/DL (0.1-1.0)
[2021-08-31] MEDS: POTASSIUM CL 10MEQ/50ML IVPB 50 ML IV SCH (06:41)
[2021-08-31] MEDS: KCL 20 MEQ TAB (K-DUR) PO SCH (06:41)
[2021-08-31 06:43] LABS: CREATININE SERUM 1.05 MG/DL (0.60-1.30)
[2021-08-31 06:46] LABS: MAGNESIUM 2.7 MG/DL (1.6-2.4)
[2021-08-31] MEDS: MAGNESIUM 1 GM/100 ML IVPB 100 ML IV SCH (06:46)
--- NOTE | 2021-08-31 08:22 | Tele-ICU Progress Note ---
Progress Note video rounds completed 46 y/o morbidly obese with covid PNA On CPAP 65%, tolerating well PE: has a fib on diltiazem drip and apixabn Pulse: 60-70, irregulrly, iregular BP: 131/83 O2 sat: 94% appears comfortble lying in bed PLN: continue glucos mnagement and CPAP for hypoxemia Focused Exam Height, Weight, BMI Height: 5'9.00" Weight: 358lbs. 8.0oz. 162.546431be; 55.85 BMI Method:Stated Laboratory Tests 08/31/21 06:00 Labs Labs Laboratory Tests 08/30/21 11:12: Glucometer 196H 08/30/21 15:36: Glucometer 190H 08/30/21 20:23: Glucometer 213H 08/31/21 06:00: White Blood Count 19.8H, Red Blood Count 5.22, Hemoglobin 15.7, Hematocrit 47, Mean Corpuscular Volume 90, Mean Corpuscular Hemoglobin 30, Mean Corpuscular Hemoglobin Concent 33, Red Cell Distribution Width 13.3, Platelet Count 253, Mean Platelet Volume 10.3, Immature Granulocyte % (Auto) 2, Neutrophils (%) (Au to) 92H, Lymphocytes (%) (Auto) 3L, Monocytes (%) (Auto) 3, Eosinophils (%) (Auto) 0, Basophils (%) (Auto) 0, Neutrophils # (Auto) 18.2H, Lymphocytes # (Auto) 0.5L, Monocytes # (Auto) 0.6, Eosinophils # (Auto) 0.0, Basophils # (Auto) 0.0, Immature Granulocyte # (Auto) 0.4H, Sodium Level 138, Potassium Level 5.5H, Chloride Level 104, Carbon Dioxide Level 26, Anion Gap 8, Blood Urea Nitrogen 35H, Creatinine 1.05, Estimat Glomerular Filtration Rate 76, BUN/Creati nine Ratio 33, Glucose Level 157H, Calcium Level 8.5, Corrected Calcium 9.1, Ph osphorus Level 4.0, Magnesium Level 2.7H, Total Bilirubin 0.9, Aspartate Amino Transf (AST/SGOT) 57H, Alanine Aminotransferase (ALT/SGPT) 203H, Alkaline Phosphatase 63, Total Protein 6.1L, Albumin 3.3 08/31/21 06:11: Glucometer 155H LASHA PEREZ MD Aug 31, 2021 08:22
[2021-08-31] MEDS ORDERED: SOD POLYSTERENE 15 GM/60 ML (KAYEXALATE) UNIT DOSE PO ONE (08:30)
[2021-08-31] MEDS: polyethylene glycoL POWDER 17 GM (MIRALAX) PACK PO SCH (08:31)
[2021-08-31] MEDS: APIXABAN 5 MG (ELIQUIS) TABLET PO SCH (08:44)
[2021-08-31] MEDS: AMIODARONE 200 MG (CORDARONE) TAB PO SCH (08:44)
[2021-08-31] MEDS: SENNA W/DOCUSATE (SENOKOT S) TABLET PO SCH (08:44)
[2021-08-31] MEDS: ACYCLOVIR 400 MG TABLET (ZOVIRAX) PO SCH (08:44)
[2021-08-31] MEDS: ALPRAZolam 0.5 MG (XANAX) TAB PO SCH (08:44)
--- NOTE | 2021-08-31 12:04 | Progress Note - Hospitalist ---
Subjective HPI/CC On Admission Date Seen by Provider: Aug 31, 2021 Time Seen by Provider: 10:30 Chief complaint: COVID-19 pneumonia with acute hypoxic respiratory failure History present illness: This is a 46-year-old unvaccinated against Covid patient of Aamir Bauman in [place] who has a past medical history of hypertens ion and TICO who presents to the [facility] with shortness of breath. He was diagnosed with Covid the day before was not hypoxic and sent home but returned today with increased shortness of breath and acute hypoxic respiratory failure requiring inpatient stay. He is currently now on 7 L and is high risk for progression. He may be in Actemra candidate. Poor IV access noted since his IV is a 24-gauge in his chest wall. Central line may be required. Checking meds and labs. Subjective/Events-last exam He is sleeping. He is doing about the same. He is not having fevers. His anxiety is well controlled. He is eating and drinking. He is having bowel movements. He has no needs at this time. We discussed that it appears he will have a long course to wean his oxygen and get him back to his baseline and he was understanding. Objective Exam Vital Signs Vital Signs Date Time Temp Pulse Resp B/P (MAP) Pulse Ox O2 Delivery O2 Flow Rate FiO2 08/31/21 09:56 78 22 91 65.00 08/31/21 09:00 113/74 (85) NIV CPAP 08/31/21 08:00 65 08/30/21 22:29 36.6 Capillary Refill : Less Than 3 Seconds General Appearance: No Apparent Distress, Obese Respiratory: No Respiratory Distress, Decreased Breath Sounds, Other (wearing CPAP) Cardiovascular: Regular Rate, Rhythm, No Edema, No Murmur Gastrointestinal: Normal Bowel Sounds, Non Tender, Soft Extremity: Normal Inspection, Non Tender, No Pedal Edema Neurologic/Psychiatric: Alert, Oriented x3, No Motor/Sensory Deficits Skin: Normal Color, Warm/Dry Results/Procedures Lab Laboratory Tests 08/31/21 06:00 Patient resulted labs reviewed. Imaging: Reviewed Imaging Report Assessment/Plan Assessment and Plan Assess & Plan/Chief Complaint Acute respiratory failure due to COVID-19 TeleICU following Continue Decadron s/p Actemra 08/21 Supplemental oxygen as needed, still requiring CPAP Unable to maintain oxygen saturations on maximal Vapotherm Elevated LFTs Trending up Monitor New onset AFib with RVR Cardiology following Continue Diltiazem, Metoprolol, and Amiodarone Eliquis for stroke prophylaxis Anxiety Xanax Super obesity Clinically significant, no acute management needs Critical Care Critically Ill Patient Diagnosis/Problems Diagnosis/Problems (1) Acute respiratory failure due to COVID-19 Status: Acute (2) Atrial fibrillation with RVR Status: Acute (3) Super obesity Status: Chronic MCKAYLA DURÁN MD Aug 31, 2021 12:03
--- NOTE | 2021-08-31 13:01 | Progress Note - Cardiology ---
Cardiology SOAP Progress Note Subjective: Gen malaise and weakness Mod shortness of breath No cp or palp or syncope No n/v/d Objective: I&O/Vital Signs 08/31/21 08/31/21 08/31/21 08/31/21 01:00 01:00 02:00 02:14 Pulse 60 60 72 71 Resp 19 18 16 B/P (MAP) 110/83 (92) 114/82 (93) Pulse Ox 90 94 95 O2 Delivery NIV CPAP NIV CPAP O2 Flow Rate 65.00 08/31/21 08/31/21 08/31/21 08/31/21 03:00 04:00 04:00 05:00 Pulse 68 71 54 Resp 18 20 20 B/P (MAP) 110/82 (91) 118/66 (83) 109/69 (82) Pulse Ox 96 95 95 O2 Delivery NIV CPAP NIV CPAP NIV CPAP NIV CPAP FiO2 65 08/31/21 08/31/21 08/31/21 08/31/21 06:00 06:52 07:00 07:00 Pulse 67 78 55 51 Resp 20 22 15 B/P (MAP) 113/82 (92) 107/70 (78) Pulse Ox 96 91 94 O2 Delivery NIV CPAP NIV CPAP O2 Flow Rate 65.00 75.00 08/31/21 08/31/21 08/31/21 08/31/21 08:00 08:00 09:00 09:56 Pulse 55 61 78 Resp 15 21 22 B/P (MAP) 131/83 (93) 113/74 (85) Pulse Ox 92 87 91 O2 Delivery NIV CPAP NIV CPAP NIV CPAP O2 Flow Rate 75.00 75.00 65.00 FiO2 65 08/31/21 00:00 Intake Total 1800 ml Output Total 450 ml Balance 1350 ml Weight (Pounds): 358 Weight (Ounces): 8.0 Weight (Calculated Kilograms): 162.191713 Constitutional: AAO x 3, well-developed, well-nourished, other (on BiPAP) Respiratory: No accessory muscle use; other (good, bilat air entry) Cardiovascular: irregularly irregular, S1 and S2, systolic murmur (soft KENY at card base) Gastrointestional: No tender; soft; No guarding, No rebound; audible bowel sounds Extremities: swelling (mod, bilat, pitting and nonpitting edema); No clubbing, No cyanosis Neurologic/Psychiatric: oriented x 3, other (moves all limbs equally) Skin: warm/dry; No rash on exposed areas Results/Procedures: Labs Laboratory Tests 08/30/21 15:36: Glucometer 190H 08/30/21 20:23: Glucometer 213H 08/31/21 06:00: White Blood Count 19.8H, Red Blood Count 5.22, Hemoglobin 15.7, Hematocrit 47, Mean Corpuscular Volume 90, Mean Corpuscular Hemoglobin 30, Mean Corpuscular Hemoglobin Concent 33, Red Cell Distribution Width 13.3, Platelet Count 253, Mean Platelet Volume 10.3, Immature Granulocyte % (Auto) 2, Neutrophils (%) (Auto) 92H, Lymphocytes (%) (Auto) 3L, Monocytes (%) (Auto) 3, Eosinophils (%) (Auto) 0, Basophils (%) (Auto) 0, Neutrophils # (Auto) 18.2H, Lymphocytes # (Auto) 0.5L, Monocytes # (Auto) 0.6, Eosinophils # (Auto) 0.0, Basophils # (Auto) 0.0, Immature Granulocyte # (Auto) 0.4H, Sodium Level 138, Potassium Level 5.5H, Chloride Level 104, Carbon Dioxide Level 26, Anion Gap 8, Blood Urea Nitrogen 35H, Creatinine 1.05, Estimat Glomerular Filtration Rate 76, BUN/ Creatinine Ratio 33, Glucose Level 157H, Calcium Level 8.5, Corrected Calcium 9 .1, Phosphorus Level 4.0, Magnesium Level 2.7H, Total Bilirubin 0.9, Aspartate Amino Transf (AST/SGOT) 57H, Alanine Aminotransferase (ALT/SGPT) 203H, Alkaline Phosphatase 63, Total Protein 6.1L, Albumin 3.3 08/31/21 06:11: Glucometer 155H 08/31/21 10:20: Glucometer 167H Laboratory Tests 08/30/21 06:00 08/31/21 06:00 A/P: Assessment: COVID-19 pneumonia with acute resp failure, managed by the Med svce A Fib of undetermined age, persistent since admission - stroke prophylaxis with apixaban One episode of musculoskeletal chest pain (reproducible), EKG did not show any acute ischemic changes. H/o hyperension, controlled Morbid obesity, BMI 53, with sleep apnea and obesity-hypoventilation syndrome Mild elevation of K that remains stable Plan: * I interviewed and examined the patient and reviewed his records * I discussed his case with Dr Ribera yesterday * Complex management due to multiple comorbidities * Continue current regimen * Continue to monitor in ICU and monitor labs closely RUSTAM CARR MD [facility] Aug 31, 2021 13:01
[2021-08-31] MEDS ORDERED: PROPOFOL DRIP (ICU) 100 ML IV ONE (15:11)
--- NOTE | 2021-08-31 15:11 | Tele-ICU Progress Note ---
Progress Note intubated for worsening hypoxemia Focused Exam Height, Weight, BMI Height: 5'9.00" Weight: 358lbs. 8.0oz. 162.308737cj; 55.85 BMI Method:Stated LASHA PEREZ MD Aug 31, 2021 15:11
--- NOTE | 2021-08-31 15:21 | Procedure/Intervention Note ---
Procedures/Interventions Date of ETT Placement: Aug 31, 2021 Time of ETT Placement: 15:00 Intubation Method: orotracheal Tube Size: 8 Medications: Etomidate, Rocuronium Positive End Tide CO2: Yes Breath Sounds after Intubation: bilateral-equal Intubation Complications: no complications Post Intubation Xray: Yes Called ICU to intubate at about 1450 due to sudden worsening. Admitted for COVID-19. Upon my arrival RT was bagging the patient with a saturation of 95%. We gave 20 mg of etomidate and 50 mg of rocuronium. Was then able to visualize a size 8 endotracheal tube passing through the cords 23 cm at the teeth balloon inflated color change on the color device and lung sounds bilaterally. He then had a rapid desaturation down to about 40% with a PEEP of 5 so the PEEP was increased to 15 with a resultant slow increase in SPO2 up to about 75% at the time that I was leaving the room and still rising.. RADHA YANEZ APRN Aug 31, 2021 15:21
--- NOTE | 2021-08-31 15:37 | Diagnostic Imaging Report ---
INDICATION: Intubation. Covid positive. FINDINGS: Endotracheal tube has been placed and terminates at the level of the clavicular heads. Diffuse interstitial and alveolar opacities within the lungs, compatible with pneumonia, appear progressed from the prior examination. Lung volumes are low. Heart is and mediastinal contours are unchanged. IMPRESSION: 1. Endotracheal tube projects over the tracheal air shadow and terminates at the level of the ventricular heads. 2. Progressive bilateral pulmonary infiltrates compatible with pneumonia. Dictated by: Dictated on workstation # [id number]
[2021-08-31] MEDS ORDERED: fentaNYL DRIP PRE-MIX 250 ML IV ONE (15:44)
[2021-08-31] MEDS: PROPOFOL DRIP (ICU) 100 ML IV SCH ×2 (15:45→20:50)
[2021-08-31] MEDS: fentaNYL DRIP PRE-MIX 250 ML IV SCH (15:58)
[2021-08-31 17:11] LABS: ABG OXYGEN SATURATION 99 % (94-100); ABG PCO2 43 MMHG (35-45); ABG PO2 134 MMHG (79-93); ABG TCO2 24.6 MMOL/L (21.0-31.0)
[2021-08-31 17:14] LABS: ABG PH 7.34 (7.37-7.43); ALLENS TEST YES-POS; INSPIRED O2 100%; PATIENT TEMP 35.6; VENTILATOR YES
[2021-08-31] MEDS: NS IV 1000 ML 1,000 ML IV SCH (18:08)
--- NOTE | 2021-08-31 18:29 | Diagnostic Imaging Report ---
INDICATION: Nasogastric tube assessment. EXAMINATION: Portable supine images of the abdomen were obtained. FINDINGS: Nasogastric tube is incompletely included on this study but appears to reach the upper stomach. The tube may be bent on itself and the tip direction is not confirmed. IMPRESSION: Nasogastric tube reaches the upper stomach although the tube may be bent upon itself and the tip could potentially reside within the distal esophagus. Dictated by: Dictated on workstation # [id number]
[2021-09-01] VITALS (82 sets, daily range): BP systolic 91–143; BP diastolic 55–97
[2021-09-01] MEDS: RT-ALBUTEROL HFA 8.5 GM INHALER IH SCH ×6 (02:28→22:14)
[2021-09-01] MEDS: AMIODARONE 200 MG (CORDARONE) TAB PO SCH ×3 (02:33→20:21)
[2021-09-01] MEDS: APIXABAN 5 MG (ELIQUIS) TABLET PO SCH ×3 (02:33→20:21)
[2021-09-01] MEDS: ALPRAZolam 0.5 MG (XANAX) TAB PO SCH ×3 (02:34→22:35)
[2021-09-01] MEDS: SENNA W/DOCUSATE (SENOKOT S) TABLET PO SCH ×3 (02:34→20:21)
[2021-09-01] MEDS: polyethylene glycoL POWDER 17 GM (MIRALAX) PACK PO SCH ×3 (02:34→20:21)
[2021-09-01] MEDS: ACYCLOVIR 400 MG TABLET (ZOVIRAX) PO SCH ×3 (02:34→20:21)
[2021-09-01] MEDS: inSUlin ASPART (NovoLOG) 1 UNIT/0.01 ML (CHARGE PER UNIT) SC SCH ×5 (03:03→23:51)
[2021-09-01] MEDS: PROPOFOL DRIP (ICU) 100 ML IV SCH ×7 (03:04→20:22)
[2021-09-01] MEDS: NS IV 1000 ML 1,000 ML IV SCH ×3 (04:00→23:48)
[2021-09-01 06:23] LABS: BASOPHILS % (AUTO) 0 % (0-10); EOSINOPHILS % (AUTO) 0 % (0-10); HEMATOCRIT 45 % (40-54); HEMOGLOBIN 14.9 g/dL (13.3-17.7); LYMPHOCYTES # (AUTO) 0.6 10^3/uL (1.0-4.0); LYMPHOCYTES % (AUTO) 3 % (12-44); MEAN CORPUSCULAR HEMOGLOBIN 30 pg (25-34); MEAN CORPUSCULAR HGB CONC 33 g/dL (32-36); MEAN CORPUSCULAR VOLUME 92 fL (80-99); MEAN PLATELET VOLUME 10.4 fL (9.0-12.2); MONOCYTES # (AUTO) 0.6 10^3/uL (0.0-1.0); MONOCYTES % (AUTO) 3 % (0-12); NEUTROPHILS # (AUTO) 17.6 10^3/uL (1.8-7.8); NEUTROPHILS % (AUTO) 92 % (42-75); PLATELET COUNT 214 10^3/uL (130-400); WHITE BLOOD COUNT 19.2 10^3/uL (4.3-11.0)
[2021-09-01 06:38] LABS: ALBUMIN 2.9 GM/DL (3.2-4.5); POTASSIUM 5.3 MMOL/L (3.6-5.0)
[2021-09-01 06:39] LABS: CALCIUM 7.8 MG/DL (8.5-10.1)
[2021-09-01 06:41] LABS: TOTAL PROTEIN 5.4 GM/DL (6.4-8.2)
[2021-09-01 06:42] LABS: BILIRUBIN,TOTAL 1.5 MG/DL (0.1-1.0)
[2021-09-01 06:44] LABS: CREATININE SERUM 1.22 MG/DL (0.60-1.30); PHOSPHORUS 5.2 MG/DL (2.3-4.7)
[2021-09-01 06:47] LABS: MAGNESIUM 2.7 MG/DL (1.6-2.4)
[2021-09-01] MEDS: KCL 20 MEQ TAB (K-DUR) PO SCH (06:49)
[2021-09-01] MEDS: POTASSIUM CL 10MEQ/50ML IVPB 50 ML IV SCH (06:49)
[2021-09-01] MEDS: MAGNESIUM 1 GM/100 ML IVPB 100 ML IV SCH (06:49)
[2021-09-01] MEDS: VIIBRYD 20 MG PO SCH (07:00)
--- NOTE | 2021-09-01 08:28 | Diagnostic Imaging Report ---
EXAMINATION: Chest radiograph, portable AP view. DATE: 09/01/2021 8:23 AM INDICATION: 46-year-old male, respiratory failure. COVID positive. COMPARISON: August 31, 2021. FINDINGS: The endotracheal tube is approximately 5.8 cm above the dilip. The nasogastric tube is in the proximal stomach. The right-sided PICC line overlies the cavoatrial junction. There are multifocal bilateral alveolar opacities which are essentially unchanged. IMPRESSION: 1. Essentially unchanged multifocal bilateral alveolar consolidation. 2. Support lines and tubes as above. Dictated by: Dictated on workstation # [id number]
[2021-09-01] MEDS: PANTOPRAZOLE 40 MG (PROTONIX) VIAL IV SCH (08:33)
--- NOTE | 2021-09-01 09:41 | Tele-ICU Progress Note ---
Subjective Date Seen by a Provider: Sep 01, 2021 Time Seen by a Provider: 09:36 Subjective/Events-last exam Patient yesterday was intubated go to increasing hypoxia and respiratory distress. Earlier this morning he was on a PEEP of 15 and he is still hypoxic hence his PEEP increased to 20. His oxygen saturation improved to about 94%. He is occasionally stacking requiring additional sedation. Chest x-ray reviewed and showed bilateral extensive infiltrates right more than the left. Review of Systems ros per attending physician. Sepsis Event Evaluation Height, Weight, BMI Height: 5'9.00" Weight: 358lbs. 8.0oz. 162.313598ww; 55.85 BMI Method:Stated Exam Exam Patient acknowledged, consented, and participated in this virtual visit which was conducted using real time audio/video Vital Signs Date Time Temp Pulse Resp B/P (MAP) Pulse Ox O2 Delivery O2 Flow Rate FiO2 09/01/21 08:33 119/72 09/01/21 08:00 35.7 09/01/21 07:09 58 27 90 100 09/01/21 06:00 57 25 124/74 (91) 91 Mechanical Ventilator 100.00 09/01/21 05:45 51 16 121/79 (93) 90 Mechanical Ventilator 100.00 09/01/21 05:30 52 15 126/81 (96) 91 Mechanical Ventilator 100.00 09/01/21 05:15 51 14 116/95 (102) 91 Mechanical Ventilator 100.00 09/01/21 05:00 51 11 122/77 (92) 90 Mechanical Ventilator 100.00 09/01/21 04:45 50 9 125/82 (96) 94 Mechanical Ventilator 100.00 09/01/21 04:30 56 10 115/80 (92) 91 Mechanical Ventilator 100.00 09/01/21 04:15 53 13 122/83 (96) 92 Mechanical Ventilator 100.00 09/01/21 04:00 49 8 122/72 (89) 91 Mechanical Ventilator 100.00 09/01/21 04:00 NIV CPAP 100 09/01/21 03:45 51 13 123/91 (102) 92 Mechanical Ventilator 100.00 09/01/21 03:30 55 11 109/77 (88) 92 Mechanical Ventilator 100.00 09/01/21 03:15 49 9 116/72 (87) 92 Mechanical Ventilator 100.00 09/01/21 03:04 53 113/72 09/01/21 03:00 55 13 113/72 (86) 91 Mechanical Ventilator 100.00 09/01/21 02:45 54 18 127/79 (95) 93 Mechanical Ventilator 100.00 09/01/21 02:30 60 21 118/70 (86) 93 Mechanical Ventilator 100.00 09/01/21 02:29 55 28 93 100 09/01/21 02:15 53 11 116/75 (89) 88 Mechanical Ventilator 100.00 09/01/21 02:00 58 23 119/67 (84) 93 Mechanical Ventilator 100.00 09/01/21 01:45 51 12 119/73 (88) 88 Mechanical Ventilator 100.00 09/01/21 01:30 58 12 112/75 (87) 92 Mechanical Ventilator 100.00 09/01/21 01:15 43 17 120/72 (88) 92 Mechanical Ventilator 100.00 09/01/21 01:00 35 11 118/79 (92) 92 Mechanical Ventilator 100.00 09/01/21 01:00 54 09/01/21 00:00 NIV CPAP 100 08/31/21 22:16 53 24 92 100 08/31/21 21:00 54 17 93/75 (81) 97 Mechanical Ventilator 100.00 08/31/21 20:50 58 93/77 08/31/21 20:45 51 13 93/73 (80) 94 Mechanical Ventilator 100.00 08/31/21 20:30 56 16 110/88 (95) 94 Mechanical Ventilator 100.00 08/31/21 20:15 53 11 111/81 (91) 95 Mechanical Ventilator 100.00 08/31/21 20:00 NIV CPAP 100 08/31/21 20:00 51 13 93/73 (80) 94 Mechanical Ventilator 100.00 08/31/21 20:00 35.9 08/31/21 19:45 52 12 88/66 (73) 95 Mechanical Ventilator 100.00 08/31/21 19:30 51 12 72/64 (67) 94 Mechanical Ventilator 100.00 08/31/21 19:15 51 15 92/64 (73) 94 Mechanical Ventilator 100.00 08/31/21 19:00 50 08/31/21 19:00 49 14 106/69 (81) 88 Mechanical Ventilator 100.00 08/31/21 18:51 93 22 90 100 08/31/21 18:00 52 22 89/61 (70) 97 Mechanical Ventilator 100.00 08/31/21 17:00 54 22 94/50 (65) 96 Mechanical Ventilator 100.00 08/31/21 16:35 35.6 08/31/21 16:00 Mechanical Ventilator 100 08/31/21 16:00 60 22 119/89 (99) 92 NIV CPAP 75.00 08/31/21 15:37 101 08/31/21 15:17 93 22 88 100 08/31/21 15:00 117 30 93/67 (76) 94 NIV CPAP 75.00 08/31/21 14:00 62 17 102/73 (83) 94 NIV CPAP 75.00 08/31/21 13:00 68 08/31/21 13:00 64 20 120/78 (92) 98 NIV CPAP 75.00 08/31/21 12:00 59 28 104/75 (85) 95 NIV CPAP 75.00 08/31/21 12:00 36.8 08/31/21 11:00 57 16 124/89 (101) 96 NIV CPAP 75.00 08/31/21 11:00 NIV CPAP 65 08/31/21 10:00 60 15 115/86 (96) 96 NIV CPAP 75.00 08/31/21 09:56 78 22 91 65.00 I & O 09/01/21 07:00 Intake Total 575 ml Output Total 1175 ml Balance -600 ml Height & Weight Height: 5'9.00" Weight: 358lbs. 8.0oz. 162.755429dg; 55.85 BMI Method:Stated General Appearance: No Apparent Distress, Obese HEENT: Normal ENT Inspection, Pharynx Normal, Moist Mucous Membranes Neck: Full Range of Motion, Normal Inspection, Non Tender Respiratory: No Respiratory Distress, Decreased Breath Sounds, Other Cardiovascular: Regular Rate, Rhythm, No Edema, No Murmur Capillary Refill: Less Than 3 Seconds Peripheral Pulses: 2+ Radial Pulses (R), 2+ Radial Pulses (L) Gastrointestinal: non tender, soft Extremity: Normal Inspection, Non Tender, No Pedal Edema Neurologic/Psychiatric: Alert, Oriented x3, No Motor/Sensory Deficits Skin: Normal Color, Warm/Dry Lymphatic: No Adenopathy Results Lab Laboratory Tests 08/31/21 06:00 09/01/21 06:00 Assessment/Plan Assessment/Plan 1. Acute hypoxic respiratory failure secondary to ARDS which is as a result of Covid pneumonia. Currently required intubation and high PEEP with 100% FiO2. 2. Acute Covid19 pneumonia 3. Suspected superadded bacterial pneumonia 4. Atrial fibrillation with rapid ventricular rate currently controlled. 5. Hyperglycemia is probably secondary to steroids 6. Suspected patient is in cytokine storm. Recommendations 1. Continue mechanical ventilatory support with a PEEP of 20 and monitor oxygen saturations and as needed blood gases. 2. Continue IV dexamethasone 3. Apixaban for stroke prevention and DVT for prophylaxis 4. Diltiazem drip per cardiology. 5. Acyclovir 4 possible viral pneumonia prophylaxis. 6. Continue sliding scale with insulin coverage for hyperglycemia. 7. His overall prognosis is poor. Critical Care: Ventilator Management Time spent with patient (mins): 35 CATARINO HART MD Sep 01, 2021 09:41
[2021-09-01] MEDS ORDERED: MIDAZOLAM 2 MG/2 ML (VERSED) VIAL ONE (09:51)
[2021-09-01] MEDS ORDERED: MIDAZOLAM 2 MG/2 ML (VERSED) VIAL IVP ONE (10:00)
[2021-09-01] MEDS ORDERED: ETOMIDATE IV SOLN 20 MG/10 ML VIAL IV ONE (11:17)
[2021-09-01] MEDS ORDERED: fentaNYL INJ 100 MCG/2 ML AMP IV ONE (11:17)
[2021-09-01] MEDS ORDERED: MIDAZOLAM 5 MG/5 ML (VERSED) VIAL IJ ONE (11:17)
[2021-09-01] MEDS ORDERED: ROCURONIUM 10 MG/ML 5 ML SYRINGE IV ONE (11:17)
[2021-09-01] MEDS: fentaNYL DRIP PRE-MIX 250 ML IV SCH ×2 (11:58→23:48)
--- NOTE | 2021-09-01 12:57 | Progress Note - Hospitalist ---
RALPH RAY 09/01/21 1257: Subjective HPI/CC On Admission Chief complaint: COVID-19 pneumonia with acute hypoxic respiratory failure History present illness: This is a 46-year-old unvaccinated against Covid patient of Aamir Bauman in [place] who has a past medical history of hypertension and TICO who presents to the [place] [facility] with shortness of breath. He was diagnosed with Covid the day before was not hypoxic and sent home but returned today with increased shortness of breath and acute hypoxic respiratory failure requiring inpatient stay. He is currently now on 7 L and is high risk for progression. He may be in Actemra candidate. Poor IV access noted since his IV is a 24-gauge in his chest wall. Central line may be required. Checking meds and labs. Subjective/Events-last exam PT was intubated yesterday and is now on mechanical ventilation for ARDS d/t COVID 19. PT is currently sedated. Review of Systems ROS not possible, patient sedated Objective Exam Vital Signs Vital Signs Date Time Temp Pulse Resp B/P (MAP) Pulse Ox O2 Delivery O2 Flow Rate FiO2 09/01/21 12:00 36.0 51 22 107/60 (76) 94 Mechanical Ventilator 100.00 09/01/21 11:25 100 Capillary Refill : Less Than 3 Seconds General Appearance: Obese, Other (sedated ) HEENT: Other Respiratory: Crackles, Other (mechanically ventilated) Cardiovascular: No Murmur, Bradycardia Gastrointestinal: No Organomegaly, No Pulsatile Mass, Soft Rectal: Deferred Extremity: Slow Capillary Refill Neurologic/Psychiatric: No Alert, No Oriented x3; Other (sedated ) Skin: Cyanosis (of the digits ) Results/Procedures Lab Laboratory Tests 09/01/21 06:00 Patient resulted labs reviewed. Imaging: Reviewed Imaging Report Assessment/Plan Assessment and Plan Assess & Plan/Chief Complaint Acute respiratory failure due to COVID-19 Elevated LFTs New onset AFib with RVR Super obesity Acute respiratory failure due to COVID-19 TeleICU following s/p Actemra 08/21 Continue on mechanical ventilation Continue Decadron Elevated LFTs Trending up Monitor New onset AFib with RVR Cardiology following Continue Diltiazem, Metoprolol, and Amiodarone Eliquis for stroke prophylaxis Super obesity Clinically significant, no acute management needs MCKAYLA DURÁN MD 12/5/21 1827: Subjective HPI/CC On Admission Date Seen by Provider: Sep 01, 2021 Time Seen by Provider: 11:10 Objective Exam General Appearance: No Apparent Distress, Obese, Other (intubated and sedated) Respiratory: No Respiratory Distress, Decreased Breath Sounds, Other (intubated and mechanically ventilated) Cardiovascular: No Murmur, Bradycardia Gastrointestinal: Normal Bowel Sounds, Soft; No Distended Extremity: Normal Inspection, No Pedal Edema Neurologic/Psychiatric: Other (sedated) Skin: Cool, Mottled Results/Procedures Imaging: Reviewed Imaging Report Assessment/Plan Assessment and Plan Assess & Plan/Chief Complaint ARDS due to COVID-19. Intubated yesterday. Requiring near maximal ventilator support. TeleICU following. Poor prognosis. Diagnosis/Problems Diagnosis/Problems (1) Acute respiratory distress syndrome (ARDS) due to COVID-19 virus Status: Acute (2) Super obesity Status: Chronic (3) Atrial fibrillation with RVR Status: Acute Supervisory-Addendum Brief Verification & Attestation Participated in pt care: history, MDM, physical Personally performed: exam, history, MDM, supervision of care Care discussed with: Medical Student Procedures: n/a Results interpretation: Verified all documentation A medical student performed and documented this service in my presence. I reviewed and verified all information documented by the medical student and made modifications to such information, when appropriate. I personally performed the physical exam and medical decision making. RALPH RAY Sep 01, 2021 12:57 MCKAYLA DURÁN MD Sep 01, 2021 18:27
--- NOTE | 2021-09-01 15:36 | Progress Note - Cardiology ---
Cardiology SOAP Progress Note Subjective: He has not reported any new symptoms to his care providers Objective: I&O/Vital Signs 09/01/21 09/01/21 09/01/21 09/01/21 03:45 04:00 04:00 04:15 Pulse 51 49 53 Resp 13 8 13 B/P (MAP) 123/91 (102) 122/72 (89) 122/83 (96) Pulse Ox 92 91 92 O2 Delivery Mechanical Ventilator NIV CPAP Mechanical Ventilator Mechanical Ventilator O2 Flow Rate 100.00 100.00 100.00 FiO2 100 09/01/21 09/01/21 09/01/21 09/01/21 04:30 04:45 05:00 05:15 Pulse 56 50 51 51 Resp 10 9 11 14 B/P (MAP) 115/80 (92) 125/82 (96) 122/77 (92) 116/95 (102) Pulse Ox 91 94 90 91 O2 Delivery Mechanical Ventilator Mechanical Ventilator Mechanical Ventilator Mechanical Ventilator O2 Flow Rate 100.00 100.00 100.00 100.00 09/01/21 09/01/21 09/01/21 09/01/21 05:30 05:45 06:00 07:00 Pulse 52 51 57 59 Resp 15 16 25 15 B/P (MAP) 126/81 (96) 121/79 (93) 124/74 (91) 128/78 (95) Pulse Ox 91 90 91 91 O2 Delivery Mechanical Ventilator Mechanical Ventilator Mechanical Ventilator Mechanical Ventilator O2 Flow Rate 100.00 100.00 100.00 100.00 09/01/21 09/01/21 09/01/21 09/01/21 07:00 07:09 07:15 07:30 Pulse 56 58 58 60 Resp 27 25 13 B/P (MAP) 143/70 (94) 134/87 (103) Pulse Ox 90 90 92 O2 Delivery Mechanical Ventilator Mechanical Ventilator O2 Flow Rate 100.00 100.00 FiO2 100 09/01/21 09/01/21 09/01/21 09/01/21 07:45 08:00 08:00 08:00 Temp 35.7 Pulse 55 53 Resp 12 11 B/P (MAP) 132/78 (96) 132/79 (96) Pulse Ox 93 92 O2 Delivery Mechanical Ventilator Mechanical Ventilator Mechanical Ventilator O2 Flow Rate 100.00 100.00 FiO2 100 09/01/21 09/01/21 09/01/21 09/01/21 08:15 08:30 08:33 08:45 Pulse 63 55 55 Resp 26 19 14 B/P (MAP) 130/97 (108) 117/73 (88) 119/72 113/74 (87) Pulse Ox 82 92 92 O2 Delivery Mechanical Ventilator Mechanical Ventilator Mechanical Ventilator O2 Flow Rate 100.00 100.00 100.00 09/01/21 09/01/21 09/01/21 09/01/21 09:00 09:15 09:30 09:45 Pulse 55 53 44 53 Resp 9 10 13 6 B/P (MAP) 100/66 (77) 101/67 (78) 101/62 (75) 95/65 (75) Pulse Ox 89 87 82 92 O2 Delivery Mechanical Ventilator Mechanical Ventilator Mechanical Ventilator Mechanical Ventilator O2 Flow Rate 100.00 100.00 100.00 100.00 09/01/21 09/01/21 09/01/21 09/01/21 10:00 10:11 10:15 10:30 Pulse 53 52 53 53 Resp 22 24 10 B/P (MAP) 91/55 (67) 91/56 (68) 98/57 (71) Pulse Ox 94 94 92 93 O2 Delivery Mechanical Ventilator Mechanical Ventilator Mechanical Ventilator O2 Flow Rate 100.00 100.00 100.00 FiO2 100 09/01/21 09/01/21 09/01/21 09/01/21 10:45 11:00 11:15 11:25 Pulse 50 51 52 Resp 23 16 11 B/P (MAP) 97/57 (70) 102/62 (75) 100/67 (78) Pulse Ox 91 96 94 O2 Delivery Mechanical Ventilator Mechanical Ventilator Mechanical Ventilator Mechanical Ventilator O2 Flow Rate 100.00 100.00 100.00 FiO2 100 09/01/21 09/01/21 09/01/21 09/01/21 11:30 11:45 12:00 12:15 Temp 36.0 Pulse 51 53 51 51 Resp 11 14 22 16 B/P (MAP) 110/64 (79) 107/60 (76) 107/60 (76) 107/63 (78) Pulse Ox 94 96 94 94 O2 Delivery Mechanical Ventilator Mechanical Ventilator Mechanical Ventilator Mechanical Ventilator O2 Flow Rate 100.00 100.00 100.00 100.00 09/01/21 09/01/21 09/01/21 09/01/21 12:30 12:45 13:00 13:15 Pulse 51 52 53 53 Resp 16 22 9 22 B/P (MAP) 106/65 (79) 106/64 (78) 106/65 (79) 105/71 (82) Pulse Ox 95 94 94 95 O2 Delivery Mechanical Ventilator Mechanical Ventilator Mechanical Ventilator Mechanical Ventilator O2 Flow Rate 100.00 100.00 100.00 100.00 09/01/21 09/01/21 09/01/21 09/01/21 13:30 13:44 13:45 13:45 Pulse 51 49 Resp 16 20 B/P (MAP) 114/66 (82) 114/66 106/65 (79) 114/66 Pulse Ox 96 93 O2 Delivery Mechanical Ventilator Mechanical Ventilator O2 Flow Rate 100.00 100.00 09/01/21 09/01/21 09/01/21 09/01/21 14:00 14:15 14:30 14:45 Pulse 52 49 51 49 Resp 22 22 12 14 B/P (MAP) 108/67 (81) 107/68 (81) 116/69 (82) 110/68 (83) Pulse Ox 93 94 94 93 O2 Delivery Mechanical Ventilator Mechanical Ventilator Mechanical Ventilator Mechanical Ventilator O2 Flow Rate 100.00 100.00 100.00 100.00 09/01/21 14:56 Pulse 54 Resp 23 Pulse Ox 92 FiO2 100 09/01/21 00:00 Intake Total 225 ml Output Total 700 ml Balance -475 ml Weight (Pounds): 358 Weight (Ounces): 8.0 Weight (Calculated Kilograms): 162.400128 Constitutional: other (To reduce COVID-19 exposure to his care providers, I did not go into his room today; observed from the glass windows/door of the ICU room he is in) Results/Procedures: Labs Laboratory Tests 08/31/21 15:48: Glucometer 196H 08/31/21 17:05: Blood Gas Puncture Site RT RAD, Blood Gas Patient Temperature 35.6, Arterial Blood pH 7.34*L, Arterial Blood Partial Pressure CO2 43, Arterial Blood Partial Pressure O2 134H, Arterial Blood HCO3 23, Arterial Blood Total CO2 24.6, A rterial Blood Oxygen Saturation 99, Arterial Blood Base Excess -2.0, Freddie Test YES-POS, Blood Gas Ventilator Setting YES, Blood Gas Inspired Oxygen 100% 09/01/21 06:00: White Blood Count 19.2H, Red Blood Count 4.91, Hemoglobin 14.9, Hematocrit 45, Mean Corpuscular Volume 92, Mean Corpuscular Hemoglobin 30, Mean Corpuscular Hemoglobin Concent 33, Red Cell Distribution Width 13.5, Platelet Count 214, Mean Platelet Volume 10.4, Immature Granulocyte % (Auto) 2, Neutrophils (%) (Auto) 92H, Lymphocytes (%) (Auto) 3L, Monocytes (%) (Auto) 3, Eosinophils (%) (Auto) 0, Basophils (%) (Auto) 0, Neutrophils # (Auto) 17.6H, Lymphocytes # (Auto) 0.6L, Monocytes # (Auto) 0.6, Eosinophils # (Auto) 0.0, Basophils # (Auto) 0.0, Immature Granulocyte # (Auto) 0.3H, Sodium Level 141, Potassium Level 5.3H, Chloride Level 106, Carbon Dioxide Level 23, Anion Gap 12, Blood Urea Nitrogen 47H, Creatinine 1.22, Estimat Glomerular Filtration Rate 64, BUN/Creatinine Ratio 39, Glucose Level 130H, Calcium Level 7.8L, Corrected Calcium 8.7, Phosphorus Level 5.2H, Magnesium Level 2.7H, Total Bilirubin 1.5H, Aspartate Amino Transf (AST/SGOT) 69H, Alanine Aminotransferase (ALT/SGPT) 266H, Alkaline Phosphatase 53, Total Protein 5.4L, Albumin 2.9L 09/01/21 11:47: Glucometer 78 Laboratory Tests 08/31/21 06:00 09/01/21 06:00 A/P: Assessment: COVID-19 pneumonia with acute resp failure and ARDS, managed by the Med ce A Fib of undetermined age, persistent since admission - stroke prophylaxis with apixaban - rate controlled One episode of musculoskeletal chest pain (reproducible), EKG did not show any acute ischemic changes. H/o hyperension, controlled Morbid obesity, BMI 53, with sleep apnea and obesity-hypoventilation syndrome Mild elevation of K that remains stable Plan: * Continue current regimen * Continue to monitor in ICU and monitor labs closely RUSTAM CARR MD [facility] Sep 01, 2021 15:36
[2021-09-02] VITALS (48 sets, daily range): BP systolic 101–141; BP diastolic 49–94
[2021-09-02] MEDS: RT-ALBUTEROL HFA 8.5 GM INHALER IH SCH ×4 (02:26→14:50)
[2021-09-02] MEDS: PROPOFOL DRIP (ICU) 100 ML IV SCH ×3 (03:10→09:45)
[2021-09-02 05:35] LABS: BASOPHILS # (AUTO) 0.1 10^3/uL (0.0-0.1); BASOPHILS % (AUTO) 0 % (0-10); EOSINOPHILS % (AUTO) 0 % (0-10); HEMATOCRIT 50 % (40-54); HEMOGLOBIN 15.6 g/dL (13.3-17.7); LYMPHOCYTES # (AUTO) 0.4 10^3/uL (1.0-4.0); LYMPHOCYTES % (AUTO) 1 % (12-44); MEAN CORPUSCULAR HEMOGLOBIN 30 pg (25-34); MEAN CORPUSCULAR HGB CONC 31 g/dL (32-36); MEAN CORPUSCULAR VOLUME 96 fL (80-99); MEAN PLATELET VOLUME 10.7 fL (9.0-12.2); MONOCYTES # (AUTO) 1.6 10^3/uL (0.0-1.0); MONOCYTES % (AUTO) 5 % (0-12); NEUTROPHILS % (AUTO) 93 % (42-75); PLATELET COUNT 233 10^3/uL (130-400)
[2021-09-02 05:46] LABS: WHITE BLOOD COUNT 35.7 10^3/uL (4.3-11.0)
[2021-09-02 05:51] LABS: ALBUMIN 3.2 GM/DL (3.2-4.5); POTASSIUM 5.8 MMOL/L (3.6-5.0)
[2021-09-02 05:52] LABS: CALCIUM 8.4 MG/DL (8.5-10.1)
[2021-09-02 05:55] LABS: BILIRUBIN,TOTAL 2.3 MG/DL (0.1-1.0)
[2021-09-02 05:57] LABS: CREATININE SERUM 1.44 MG/DL (0.60-1.30); PHOSPHORUS 6.7 MG/DL (2.3-4.7)
[2021-09-02 06:00] LABS: MAGNESIUM 3.3 MG/DL (1.6-2.4)
[2021-09-02] MEDS ORDERED: VANCOMYCIN INJECTION 1,000 MG in NS (IVPB) 250 ML IV SCH (06:15)
[2021-09-02] MEDS ORDERED: SOD POLYSTERENE 15 GM/60 ML (KAYEXALATE) UNIT DOSE PO ONE (06:15)
--- NOTE | 2021-09-02 06:18 | Tele-ICU Progress Note ---
Progress Note Worsening WBC. Per nurse no diarrhea. Blood , U/A reflex c/s, abx empiric started. MD to review and continue if needed. Hyperkalemia Kayexalate 15 G ordered. CXR 09/01 no change in infiltrates. Interventions Minor-Other: sepsis/ hyperkalemia d/w the bedside nurse. Insulin/dextrose given Electronically Focused Exam Height, Weight, BMI Height: 5'9.00" Weight: 358lbs. 8.0oz. 162.868609ck; 55.85 BMI Method:Stated SHIRAZ BAUM MD Sep 02, 2021 06:18
[2021-09-02] MEDS ORDERED: DEXTROSE 50% 50 ML (IMS) SYR IV ONE (06:30)
[2021-09-02 06:34] LABS: LYMPHOCYTES % (MANUAL) 1 %; MONOCYTES % (MANUAL) 4 %; NEUTROPHILS % (MANUAL) 95 %
[2021-09-02] MEDS: MAGNESIUM 1 GM/100 ML IVPB 100 ML IV SCH (06:34)
[2021-09-02] MEDS: KCL 20 MEQ TAB (K-DUR) PO SCH (06:34)
[2021-09-02] MEDS: POTASSIUM CL 10MEQ/50ML IVPB 50 ML IV SCH (06:34)
[2021-09-02] MEDS: inSUlin ASPART (NovoLOG) 1 UNIT/0.01 ML (CHARGE PER UNIT) SC SCH ×2 (06:38→13:19)
[2021-09-02] MEDS ORDERED: inSUlin (REGULAR) HUMAN 1 UNIT/0.01 ML (CHARGE PER UNIT) IV ONE (06:42)
[2021-09-02] MEDS ORDERED: CEFEPIME INJECTION 1,000 MG in NS (IVPB) 50 ML IV NR (06:53)
[2021-09-02] MEDS ORDERED: VANCOMYCIN 2000 MG/NS 500 ML IVPB IV NR ×2 (08:00)
[2021-09-02 08:25] LABS: ABG BASE EXCESS -0.4 MMOL/L (-2.5-2.5); ABG OXYGEN SATURATION 93 % (94-100); ABG PO2 70 MMHG (79-93); ABG TCO2 29.6 MMOL/L (21.0-31.0)
[2021-09-02 08:26] LABS: ABG PH 7.19 (7.37-7.43)
[2021-09-02 08:27] LABS: ABG PCO2 72 MMHG (35-45); ALLENS TEST YES-POS; INSPIRED O2 100%; VENTILATOR YES
[2021-09-02 08:28] LABS: PATIENT TEMP 35.7
[2021-09-02] MEDS: AMIODARONE 200 MG (CORDARONE) TAB PO SCH (09:06)
[2021-09-02] MEDS: polyethylene glycoL POWDER 17 GM (MIRALAX) PACK PO SCH (09:06)
[2021-09-02] MEDS: ACYCLOVIR 400 MG TABLET (ZOVIRAX) PO SCH (09:06)
[2021-09-02] MEDS: ALPRAZolam 0.5 MG (XANAX) TAB PO SCH (09:06)
[2021-09-02] MEDS: APIXABAN 5 MG (ELIQUIS) TABLET PO SCH (09:06)
[2021-09-02] MEDS: SENNA W/DOCUSATE (SENOKOT S) TABLET PO SCH (09:06)
[2021-09-02] MEDS: PANTOPRAZOLE 40 MG (PROTONIX) VIAL IV SCH (09:07)
[2021-09-02] MEDS: NS IV 1000 ML 1,000 ML IV SCH (09:07)
[2021-09-02] MEDS: VIIBRYD 20 MG PO SCH (09:16)
[2021-09-02] MEDS: fentaNYL DRIP PRE-MIX 250 ML IV SCH (09:42)
[2021-09-02 10:25] LABS: BILIRUBIN,URINE 1+ (NEGATIVE); CLARITY,URINE CLEAR; COLOR,URINE YELLOW; GLUCOSE, URINE (UA) NEGATIVE (NEGATIVE); KETONES,URINE NEGATIVE (NEGATIVE); LEUKOCYTE ESTERASE ,URINE NEGATIVE (NEGATIVE); NITRITE,URINE NEGATIVE (NEGATIVE); PH,URINE 5.5 (5-9); PROTEIN,URINE 1+ (NEGATIVE)
[2021-09-02 10:57] LABS: AMORPHOUS SEDIMENT,UR LARGE AMOR URATES /LPF; BACTERIA,URINE MODERATE /HPF; RBC,URINE 25-50 /HPF; SQUAMOUS EPITHELIAL CELL,UR 0-2 /HPF
--- NOTE | 2021-09-02 11:22 | Tele-ICU Progress Note ---
Subjective Date Seen by a Provider: Sep 02, 2021 Time Seen by a Provider: 11:22 Sepsis Event Evaluation Height, Weight, BMI Height: 5'9.00" Weight: 358lbs. 8.0oz. [id number]; 55.85 BMI Method:Stated Exam Exam Patient acknowledged, consented, and participated in this virtual visit which was conducted using real time audio/video Vital Signs Date Time Temp Pulse Resp B/P (MAP) Pulse Ox O2 Delivery O2 Flow Rate FiO2 09/02/21 11:13 53 24 94 100 09/02/21 10:45 61 22 114/66 (89) 95 Mechanical Ventilator 09/02/21 10:30 62 11 105/64 (73) 95 Mechanical Ventilator 09/02/21 10:15 57 12 112/74 (91) 95 Mechanical Ventilator 09/02/21 10:00 55 15 119/65 (85) 94 Mechanical Ventilator 09/02/21 09:45 58 141/73 09/02/21 09:45 63 20 109/57 (81) 92 Mechanical Ventilator 09/02/21 09:42 58 141/73 09/02/21 09:30 141/73 (95) 91 Mechanical Ventilator 09/02/21 09:15 61 132/83 (102) 91 Mechanical Ventilator 09/02/21 09:00 59 132/85 (105) 92 Mechanical Ventilator 09/02/21 08:45 60 132/94 (109) 95 Mechanical Ventilator 09/02/21 08:30 34 116/61 (83) 93 Mechanical Ventilator 09/02/21 08:05 35.9 09/02/21 08:00 62 30 123/74 (86) 95 Mechanical Ventilator 100.00 09/02/21 08:00 Mechanical Ventilator 100 09/02/21 07:45 63 25 128/62 (94) 94 Mechanical Ventilator 100.00 09/02/21 07:30 62 24 128/69 (92) 95 Mechanical Ventilator 100.00 09/02/21 07:15 62 21 126/66 (88) 94 Mechanical Ventilator 100.00 09/02/21 07:13 63 42 131/67 (91) 94 Mechanical Ventilator 100.00 09/02/21 07:00 62 09/02/21 07:00 61 63 95 Mechanical Ventilator 100.00 09/02/21 06:45 57 22 94 100 09/02/21 06:00 55 22 109/67 (81) 93 Mechanical Ventilator 100.00 09/02/21 05:27 Mechanical Ventilator 100.00 09/02/21 05:00 58 22 118/64 (82) 90 Mechanical Ventilator 85.00 09/02/21 04:00 Mechanical Ventilator 100 09/02/21 04:00 58 8 122/66 (84) 93 Mechanical Ventilator 85.00 09/02/21 03:10 60 120/75 09/02/21 03:10 58 120/75 09/02/21 03:00 57 22 120/75 (89) 92 Mechanical Ventilator 85.00 09/02/21 02:26 58 23 90 100 09/02/21 02:00 58 22 117/67 (82) 90 Mechanical Ventilator 85.00 09/02/21 01:00 61 22 111/70 (89) 92 Mechanical Ventilator 85.00 09/02/21 01:00 61 09/02/21 00:00 56 22 122/73 (81) 91 Mechanical Ventilator 85.00 09/02/21 00:00 Mechanical Ventilator 85 09/01/21 23:38 Mechanical Ventilator 85.00 09/01/21 23:00 57 22 109/73 (85) 93 Mechanical Ventilator 100.00 09/01/21 22:14 58 25 94 85 09/01/21 22:00 56 22 120/73 (87) 94 Mechanical Ventilator 100.00 09/01/21 21:45 55 22 109/72 (92) 94 Mechanical Ventilator 100.00 09/01/21 21:30 56 22 122/72 (90) 95 Mechanical Ventilator 100.00 09/01/21 21:15 55 22 119/72 (90) 93 Mechanical Ventilator 100.00 09/01/21 21:00 55 22 121/71 (92) 94 Mechanical Ventilator 100.00 09/01/21 20:45 55 22 117/76 (87) 93 Mechanical Ventilator 100.00 09/01/21 20:30 60 22 108/65 (79) 93 Mechanical Ventilator 100.00 09/01/21 20:22 59 136/71 09/01/21 20:21 59 136/71 09/01/21 20:18 35.4 09/01/21 20:15 59 22 136/71 (96) 94 Mechanical Ventilator 100.00 09/01/21 20:00 54 22 124/70 (82) 93 Mechanical Ventilator 100.00 09/01/21 20:00 Mechanical Ventilator 100 09/01/21 19:45 54 22 119/72 (89) 93 09/01/21 19:30 55 22 111/65 (86) 92 09/01/21 19:15 51 22 117/70 (86) 93 09/01/21 19:00 53 09/01/21 19:00 53 22 126/66 (86) 94 Mechanical Ventilator 100.00 09/01/21 18:58 54 23 93 95 09/01/21 18:00 53 21 118/71 (87) 94 Mechanical Ventilator 100.00 09/01/21 17:45 50 18 109/69 (82) 97 Mechanical Ventilator 100.00 09/01/21 17:30 52 12 116/70 (87) 96 Mechanical Ventilator 100.00 09/01/21 17:15 49 22 115/72 (88) 96 Mechanical Ventilator 100.00 09/01/21 17:00 54 10 116/73 (88) 96 Mechanical Ventilator 100.00 09/01/21 16:45 50 22 117/67 (84) 94 Mechanical Ventilator 100.00 09/01/21 16:30 53 21 112/74 (88) 94 Mechanical Ventilator 100.00 09/01/21 16:15 54 10 111/72 (85) 95 Mechanical Ventilator 100.00 09/01/21 16:00 35.9 09/01/21 16:00 53 33 120/70 (85) 95 Mechanical Ventilator 100.00 09/01/21 16:00 Mechanical Ventilator 100 09/01/21 15:45 52 14 120/73 (86) 94 Mechanical Ventilator 100.00 09/01/21 15:30 55 13 119/69 (86) 95 Mechanical Ventilator 100.00 09/01/21 15:15 52 119/66 (84) 95 Mechanical Ventilator 100.00 09/01/21 15:00 50 17 116/66 (80) 94 Mechanical Ventilator 100.00 09/01/21 14:56 54 23 92 100 09/01/21 14:45 49 14 110/68 (83) 93 Mechanical Ventilator 100.00 09/01/21 14:30 51 12 116/69 (82) 94 Mechanical Ventilator 100.00 09/01/21 14:15 49 22 107/68 (81) 94 Mechanical Ventilator 100.00 09/01/21 14:00 52 22 108/67 (81) 93 Mechanical Ventilator 100.00 09/01/21 13:45 114/66 09/01/21 13:45 49 20 106/65 (79) 93 Mechanical Ventilator 100.00 09/01/21 13:44 114/66 09/01/21 13:30 51 16 114/66 (82) 96 Mechanical Ventilator 100.00 09/01/21 13:15 53 22 105/71 (82) 95 Mechanical Ventilator 100.00 09/01/21 13:00 51 09/01/21 13:00 53 9 106/65 (79) 94 Mechanical Ventilator 100.00 09/01/21 12:45 52 22 106/64 (78) 94 Mechanical Ventilator 100.00 09/01/21 12:30 51 16 106/65 (79) 95 Mechanical Ventilator 100.00 09/01/21 12:15 51 16 107/63 (78) 94 Mechanical Ventilator 100.00 09/01/21 12:00 36.0 51 22 107/60 (76) 94 Mechanical Ventilator 100.00 09/01/21 11:45 53 14 107/60 (76) 96 Mechanical Ventilator 100.00 09/01/21 11:30 51 11 110/64 (79) 94 Mechanical Ventilator 100.00 09/01/21 11:25 Mechanical Ventilator 100 I & O 09/02/21 07:00 Intake Total 1525 ml Output Total 2475 ml Balance -950 ml Height & Weight Height: 5'9.00" Weight: 358lbs. 8.0oz. 162.125430rg; 55.85 BMI Method:Stated General Appearance: No Apparent Distress, Obese, Other (intubated and sedated) HEENT: Other Neck: Full Range of Motion, Normal Inspection, Non Tender Respiratory: No Respiratory Distress, Decreased Breath Sounds, Other (intubated and mechanically ventilated) Cardiovascular: No Murmur, Bradycardia Capillary Refill: Less Than 3 Seconds Peripheral Pulses: 2+ Radial Pulses (R), 2+ Radial Pulses (L) Gastrointestinal: non tender, soft Extremity: Normal Inspection, No Pedal Edema Neurologic/Psychiatric: Other (sedated) Skin: Cool, Mottled Lymphatic: No Adenopathy Results Lab Laboratory Tests 09/01/21 06:00 09/02/21 05:26 Assessment/Plan Assessment/Plan (Tele-ICU Physician , Progress Note ) Available chart/ vitals / labs / Images reviewed Video assessment done using teleICU camera, rest of exam as per RN Discussed with RN , EXAM PER RN VENT SETTINGS and ABG reviewed Not candidate for SBT today REVIEWED Cardiovascular Stability / Sedation Score / FI02/PEEP / ABG / CXR Hospital course: 08/19- + covid 08/20 - admitted 08/21 - to ICU with CPAP 08/25 - CPAP night 45% , VT 35L 95% 08/26 = CPAP 18 night 60 % , VT 40L 100 - poor tolerance - TRY DIURESIS x 1 and INCREASE STEROIDS 08/27 - CPAP 60 % 08/31- Mild hyperkalemia-kayexalate. INTUBATED 09/01 - AC 450 - 22 + 20 100% 09/02 - AC 450 - 22 + 18 100% AHRF / ARDS due to severe COVID19 - Intubated 08/31 , AC 450 - 22 + 18 100% CPM MZSE-Bahxaxdnisz-3/COVID-19 PNA ( DX unvaccinted --Dexamethasone - INCREASED to 10 tid on 08/25 - SAME DOSE -- s/p [id number]/ 24 , ( Acyclovir for HSV/VZV prophylaxis after Tocilizumab- 30 days 400 po bid ) -Hypercoagulable state , DDIMER= WNL on 08/22 -> eliquis 5 bid - ddimer 11 on 09/02 ON FULL AC ( no evidence of large PE on CT 08/19) Suspected superimposed bact PNA -empiric abx BRIAN - worsening HeperKalemia - Tx-ed , follow New onset AFib with RVR- RATE CONTROLLED NOW -Cardiology following - amio gtt 08/25 ( cardizem gtt off- to stop amio gtt 08/26 - amio PO -Eliquis 5 bid Rising LFTs - follow closely ( not on remdesivir ) - as per RN exm - no tenderness RUQ Asthma - br-dil , steroids IV increased 08/26 due to wheezing Hyperglycemia - on steroids - ISS TICO- nocturnal BIPAP/CPAP Morbid ovesity Lines : PICC (Central Line Necessity Reviewed) Doty: void OG: Nutrition: PO ok Analgesia: Anxiety/ delirium VTE Prophylaxis: lovenox Stress Ulcer Prophylaxis: Po intake Plans in collaboration with bedside consultants and IM MDs. Discussed with RN to reach out if any questions or concerns A total of 32 minutes of critical care time was devoted to this patient today, required to treat and/or prevent further deterioration of critical care condition ( as above ) . MILTON ROGEL MD Sep 02, 2021 11:22
--- NOTE | 2021-09-02 12:44 | Progress Note - Cardiology ---
Cardiology SOAP Progress Note Subjective: Pt is on mech vent and is unable to communicate Objective: I&O/Vital Signs 09/02/21 09/02/21 09/02/21 09/02/21 01:00 01:00 02:00 02:26 Pulse 61 61 58 58 Resp 22 22 23 B/P (MAP) 111/70 (89) 117/67 (82) Pulse Ox 92 90 90 O2 Delivery Mechanical Ventilator Mechanical Ventilator O2 Flow Rate 85.00 85.00 FiO2 100 09/02/21 09/02/21 09/02/21 09/02/21 03:00 03:10 03:10 04:00 Pulse 57 58 60 58 Resp 22 8 B/P (MAP) 120/75 (89) 120/75 120/75 122/66 (84) Pulse Ox 92 93 O2 Delivery Mechanical Ventilator Mechanical Ventilator O2 Flow Rate 85.00 85.00 09/02/21 09/02/21 09/02/21 09/02/21 04:00 05:00 05:27 06:00 Pulse 58 55 Resp 22 22 B/P (MAP) 118/64 (82) 109/67 (81) Pulse Ox 90 93 O2 Delivery Mechanical Ventilator Mechanical Ventilator Mechanical Ventilator Mechanical Ventilator O2 Flow Rate 85.00 100.00 100.00 FiO2 100 09/02/21 09/02/21 09/02/21 09/02/21 06:45 07:00 07:00 07:13 Pulse 57 61 62 63 Resp 22 63 42 B/P (MAP) 131/67 (91) Pulse Ox 94 95 94 O2 Delivery Mechanical Ventilator Mechanical Ventilator O2 Flow Rate 100.00 100.00 FiO2 100 09/02/21 09/02/21 09/02/21 09/02/21 07:15 07:30 07:45 08:00 Pulse 62 62 63 Resp 21 24 25 B/P (MAP) 126/66 (88) 128/69 (92) 128/62 (94) Pulse Ox 94 95 94 O2 Delivery Mechanical Ventilator Mechanical Ventilator Mechanical Ventilator Mechanical Ventilator O2 Flow Rate 100.00 100.00 100.00 FiO2 100 09/02/21 09/02/21 09/02/21 09/02/21 08:00 08:05 08:30 08:45 Temp 35.9 Pulse 62 60 Resp 30 34 B/P (MAP) 123/74 (86) 116/61 (83) 132/94 (109) Pulse Ox 95 93 95 O2 Delivery Mechanical Ventilator Mechanical Ventilator Mechanical Ventilator O2 Flow Rate 100.00 09/02/21 09/02/21 09/02/21 09/02/21 09:00 09:15 09:30 09:42 Pulse 59 61 58 B/P (MAP) 132/85 (105) 132/83 (102) 141/73 (95) 141/73 Pulse Ox 92 91 91 O2 Delivery Mechanical Ventilator Mechanical Ventilator Mechanical Ventilator 09/02/21 09/02/21 09/02/21 09/02/21 09:45 09:45 10:00 10:15 Pulse 63 58 55 57 Resp 20 15 12 B/P (MAP) 109/57 (81) 141/73 119/65 (85) 112/74 (91) Pulse Ox 92 94 95 O2 Delivery Mechanical Ventilator Mechanical Ventilator Mechanical Ventilator 09/02/21 09/02/21 09/02/21 10:30 10:45 11:13 Pulse 62 61 53 Resp 11 22 24 B/P (MAP) 105/64 (73) 114/66 (89) Pulse Ox 95 95 94 O2 Delivery Mechanical Ventilator Mechanical Ventilator FiO2 100 09/02/21 00:00 Intake Total 1325 ml Output Total 775 ml Balance 550 ml Weight (Pounds): 358 Weight (Ounces): 8.0 Weight (Calculated Kilograms): [id number] Constitutional: other (Pt is on mech vent and is unable to communicate) Respiratory: No accessory muscle use; other (Fair air entry, diminished at the bases) Cardiovascular: regular rate-rhythm, S1 and S2, systolic murmur (soft KENY at card base) Gastrointestional: No tender; soft; No guarding, No rebound; audible bowel sounds Extremities: swelling (mod, nonpitting edema of the legs); No clubbing, No cyanosis Neurologic/Psychiatric: other (Pt is on mech vent and is unable to communicate) Skin: No rash on exposed areas, No ulcerations on exposed areas Results/Procedures: Labs Laboratory Tests 09/01/21 18:02: Glucometer 89 09/01/21 23:49: Glucometer 113H 09/02/21 05:26: White Blood Count 35.7*H, Red Blood Count 5.17, Hemoglobin 15.6, Hematocrit 50, Mean Corpuscular Volume 96, Mean Corpuscular Hemoglobin 30, Mean Corpuscular Hemoglobin Concent 31L, Red Cell Distribution Width 13.4, Platelet Count 233, Mean Platelet Volume 10.7, Immature Granulocyte % (Auto) 2, Neutrophils (%) (Auto) 93H, Lymphocytes (%) (Auto) 1L, Monocytes (%) (Auto) 5, Eosinophils (%) (Auto) 0, Basophils (%) (Auto) 0, Neutrophils # (Auto) 33.0H, Lymphocytes # (Auto) 0.4L, Monocytes # (Auto) 1.6H, Eosinophils # (Auto) 0.0, Basophils # (Auto) 0.1, Immature Granulocyte # (Auto) 0.6H, Neutrophils % (Manual) 95, Lymphocytes % (Manual) 1, Monocytes % (Manual) 4, D-Dimer 11.31H, Sodium Level 141, Potassium Level 5.8H, Chloride Level 106, Carbon Dioxide Level 23, Anion Gap 12, Blood Urea Nitrogen 56H, Creatinine 1.44H, Estimat Glomerular Filtration Rate 53, BUN/Creatinine Ratio 39, Glucose Level 165H, Calcium Level 8.4L, Corrected Calcium 9.0, Phosphorus Level 6.7H, Magnesium Level 3.3H, Total Bilirubin 2.3H, Aspartate Amino Transf (AST/SGOT) 102H, Alanine Aminotransferase (ALT/SGPT) 383H, Alkaline Phosphatase 58, C-Reactive Protein High Sensitivity 0.05, Total Protein 6.0L, Albumin 3.2 09/02/21 08:20: Blood Gas Puncture Site L RAD, Blood Gas Patient Temperature 35.7, Arterial Blood pH 7.19*L, Arterial Blood Partial Pressure CO2 72*H, Arterial Blood Partial Pressure O2 70L, Arterial Blood HCO3 27, Arterial Blood Total CO2 29.6, Arterial Blood Oxygen Saturation 93L, Arterial Blood Base Excess -0.4, Freddie Test YES-POS, Blood Gas Ventilator Setting YES, Blood Gas Inspired Oxygen 100% 09/02/21 09:32: Urine Color YELLOW, Urine Clarity CLEAR, Urine pH 5.5, Urine Specific [place] > =1.030, Urine Protein 1+H, Urine Glucose (UA) NEGATIVE, Urine Ketones NEGATIVE, Urine Nitrite NEGATIVE, Urine Bilirubin 1+H, Urine Urobilinogen 2.0, Urine Ricardo kocyte Esterase NEGATIVE, Urine RBC (Auto) 3+H, Urine RBC 25-50H, Urine WBC 2-5, Urine Squamous Epithelial Cells 0-2, Urine Crystals PRESENTH, Urine Amorphous Sediment LARGE MARIJA URATESH, Urine Bacteria MODERATEH, Urine Casts PRESENT, Urine Granular Casts 2-5H, Urine Mucus NEGATIVE, Urine Culture Indicated YES Laboratory Tests 09/01/21 06:00 09/02/21 05:26 A/P: Assessment: COVID-19 pneumonia with ARDS and acute resp failure (currently on mech vent), [facility] Fib of undetermined age, now resolved - on anticoag with apixaban - currently NSR (sinus patrick) H/o hyperension, controlled Morbid obesity, BMI 53, with sleep apnea and obesity-hypoventilation syndrome Worsening hyperkalemia, treated with Kayexelate on the am of 09/02/21 Plan: * Deteriorating clinical status. Prognosis guarded/poor * Continue to monitor in ICU and monitor labs closely Clinical Quality Measures Type of Care: Type of Care: Comfort Measures RUSTAM CARR MD [facility] Sep 02, 2021 12:44
[2021-09-02 14:43] LABS: CALCIUM 8.2 MG/DL (8.5-10.1); CREATININE SERUM 1.63 MG/DL (0.60-1.30); POTASSIUM 6.4 MMOL/L (3.6-5.0)
[2021-09-02] MEDS ORDERED: PROMETHAZINE INJ 25 MG/ML (PHENERGAN) AMP IVP PRN (16:30)
[2021-09-02] MEDS ORDERED: ARTIFICAL TEARS 0.4 ML UNIT DOSE (REFRESH PLUS) OU PRN (16:30)
[2021-09-02] MEDS ORDERED: GLYCOPYRROLATE 0.2 MG/ML (ROBINUL) 2 ML VIAL IV PRN (16:30)
[2021-09-02] MEDS ORDERED: BISACODYL 10 MG SUPP (DULCOLAX) PR PRN (16:30)
[2021-09-02] MEDS ORDERED: SALIVA STIMULANT MOUTH SPRAY (BIOTENE) 1.5 OZ MM PRN (16:30)
[2021-09-02] MEDS ORDERED: LORazepam INJ 2 MG/ML (ATIVAN) VIAL IVP PRN (16:30)
[2021-09-02] MEDS ORDERED: ACETAMINOPHEN 650 MG SUPP (TYLENOL) PR PRN (16:30)
[2021-09-02] MEDS ORDERED: ONDANSETRON 4 MG/2 ML (SDV) Z0FRAN IVP PRN (16:30)
[2021-09-02] MEDS ORDERED: RT-ALBUTEROL/IPRATROPIUM 3 ML (DUONEB) VIAL INH PRN (16:30)
[2021-09-02] MEDS ORDERED: PROPOFOL DRIP (ICU) 100 ML IV ONE ×2 (16:39)
[2021-09-02] MEDS: morphine INJ 4 MG/ML 1 ML (VIAL/SYRINGE) IV PRN ×2 (17:10→17:43)
[2021-09-02] MEDS ORDERED: morphine INJ 4 MG/ML 1 ML (VIAL/SYRINGE) IV PRN (17:45)
--- NOTE | 2021-09-02 18:55 | Discharge Summary ---
Discharge Summary Hospital Course Problems/Dx: (1) Acute respiratory distress syndrome (ARDS) due to COVID-19 virus Status: Acute (2) Super obesity Status: Chronic (3) Atrial fibrillation with RVR Status: Acute (4) Multiorgan failure Status: Acute (5) Goals of care, counseling/discussion Status: Acute (6) Comfort measures only status Status: Acute Hospital Course Date of Admission: Aug 20, 2021 at 18:15 Admission Diagnosis : Acute respiratory failure due to COVID-19 Family Physician/Provider: Zac Bauman Date of Discharge: 09/02/21 Discharge Diagnosis: Acute respiratory distress syndrome due to COVID-19, multiorgan failure Hospital Course: Onel Frazier was a 46 year old male who was admitted with acute respiratory failure due to COVID-19. He required Vapotherm and BiPAP. He continued to worsen and was not able to tolerate being on the Vapotherm for short periods of time without becoming hypoxic. He was dependent on the BiPAP 24 hours per day. He worsened and required mechanical ventilation. He continued to worsen and progressed to acute respiratory distress syndrome. He was requiring maximal ventilator support. He was also developing multiorgan failure with worsening renal and liver function. He was also developing a secondary bacterial pneumonia. His course was also complicated by AFib with RVR. Due to his severe respiratory failure and developing multiorgan failure with poor prognosis, his family was in agreement to transition to comfort measures only status and he was palliatively extubated. He subsequently at 1809 on 09/02/2021. Labs and Pending Lab Test: Laboratory Tests 09/01/21 23:49: Glucometer 113H 09/02/21 05:26: White Blood Count 35.7*H, Red Blood Count 5.17, Hemoglobin 15.6, Hematocrit 50, Mean Corpuscular Volume 96, Mean Corpuscular Hemoglobin 30, Mean Corpuscular Hemoglobin Concent 31L, Red Cell Distribution Width 13.4, Platelet Count 233, Mean Platelet Volume 10.7, Immature Granulocyte % (Auto) 2, Neutrophils (%) (Auto) 93H, Lymphocytes (%) (Auto) 1L, Monocytes (%) (Auto) 5, Eosinophils (%) (Auto) 0, Basophils (%) (Auto) 0, Neutrophils # (Auto) 33.0H, Lymphocytes # (Auto) 0.4L, Monocytes # (Auto) 1.6H, Eosinophils # (Auto) 0.0, Basophils # (Auto) 0.1, Immature Granulocyte # (Auto) 0.6H, Neutrophils % (Manual) 95, Lymphocytes % (Manual) 1, Monocytes % (Manual) 4, D-Dimer 11.31H, Sodium Level 141, Potassium Level 5.8H, Chloride Level 106, Carbon Dioxide Level 23, Anion Gap 12, Blood Urea Nitrogen 56H, Creatinine 1.44H, Estimat Glomerular Filtration Rate 53, BUN/Creatinine Ratio 39, Glucose Level 165H, Calcium Level 8.4L, Corrected Calcium 9.0, Phosphorus Level 6.7H, Magnesium Level 3.3H, Ferritin [Pending], Total Bilirubin 2.3H, Aspartate Amino Transf (AST/SGOT) 102H, Alanine Aminotransferase (ALT/SGPT) 383H, Alkaline Phosphatase 58, C-Reactive Protein High Sensitivity 0.05, Total Protein 6.0L, Albumin 3.2 09/02/21 08:20: Blood Gas Puncture Site L RAD, Blood Gas Patient Temperature 35.7, Arterial Blood pH 7.19*L, Arterial Blood Partial Pressure CO2 72*H, Arterial Blood Partial Pressure O2 70L, Arterial Blood HCO3 27, Arterial Blood Total CO2 29.6, Arterial Blood Oxygen Saturation 93L, Arterial Blood Base Excess -0.4, Freddie Test YES-POS, Blood Gas Ventilator Setting YES, Blood Gas Inspired Oxygen 100% 09/02/21 09:32: Urine Color YELLOW, Urine Clarity CLEAR, Urine pH 5.5, Urine Specific [place] >=1.030, Urine Protein 1+H, Urine Glucose (UA) NEGATIVE, Urine Ketones NEGATIVE, Urine Nitrite NEGATIVE, Urine Bilirubin 1+H, Urine Urobilinogen 2.0, Urine Leukocyte Esterase NEGATIVE, Urine RBC (Auto) 3+H, Urine RBC 25-50H, Urine WBC 2-5, Urine Squamous Epithelial Cells 0-2, Urine Crystals PRESENTH, Urine Amorphous Sediment LARGE MARIJA URATESH, Urine Bacteria MODERATEH, Urine Casts PRESENT, Urine Granular Casts 2-5H, Urine Mucus NEGATIVE, Urine Culture Indicated YES 09/02/21 12:40: Glucometer 168H 09/02/21 14:15: Sodium Level 139, Potassium Level 6.4H, Chloride Level 106, Carbon Dioxide Level 25, Anion Gap 8, Blood Urea Nitrogen 59H, Creatinine 1.63H, Estimat Glomerular Filtration Rate 46, BUN/Creatinine Ratio 36, Glucose Level 170H, Calcium Level 8.2L, Triglycerides Level 618H Home Meds Active Reported Ibuprofen 200 Mg Capsule 400-600 Mg PO Q8H PRN Viibryd (Vilazodone Hydrochloride) 20 Mg Tablet 20 Mg PO HS LAST FILLED 06-08-2021 #30/30 DAY SUPPLY Promethazine Tablet (Promethazine HCl) 25 Mg Tablet 25 Mg PO Q6H PRN Tessalon Perles (Benzonatate) 100 Mg Capsule 200 Mg PO TID PRN Azithromycin 500 Mg Tablet 500 Mg PO DAILY FILLED 08-19-2021 #4/ DAY SUPPLY Assessment/Pt Instructions Patient Discharge Physical Examination Vital Signs Vital Signs Date Time Temp Pulse Resp B/P (MAP) Pulse Ox O2 Delivery O2 Flow Rate FiO2 09/02/21 18:00 28 23 Mechanical Ventilator 09/02/21 17:00 112/61 (78) 09/02/21 16:47 62 09/02/21 16:45 100.00 09/02/21 16:01 35.8 09/02/21 16:00 100 Allergies: Coded Allergies: No Known Drug Allergies (Unverified , 02/20/19) Discharge Summary Date of Admission Aug 20, 2021 at 18:15 Date of Discharge Discharge Date: Sep 02, 2021 Discharge Time: 18:06 Admission Diagnosis Acute respiratory failure due to COVID-19 Comfort Measures/ End of Life Care: Comfort Measures Advance Care discuss with: family member (s) Plan: initiate discussion, clarifying prognosis, identified end-of-life goals, developed treatment plan Cardiopulmonary Arrest: Cardiorespiratory Arrest Date of : Sep 02, 2021 Time of : 18:09 Discharge Diagnosis ARDS due to COVID-19 (1) Acute respiratory distress syndrome (ARDS) due to COVID-19 virus Status: Acute (2) Super obesity Status: Chronic (3) Atrial fibrillation with RVR Status: Acute (4) Multiorgan failure Status: Acute (5) Goals of care, counseling/discussion Status: Acute (6) Comfort measures only status Status: Acute MCKAYLA DURÁN MD Sep 02, 2021 18:53
== END 2021-09-02 18:09 | disposition expired | DRG 207 ==
LOC: EDUNIT# 14:36 → ER FS 14:38 → CSD 18:15 → ICU 08-21 07:29
PROVIDERS: ADMIT Internal Medicine; ATTEND Internal Medicine
PROC: 5A0935A Assistance with Respiratory Ventilation, Less than 24 Consecutive Hours, High Flow/Velocity Cannula (ICD-10-PCS; 2021-08-20)
PROC: 5A09557 Assistance with Respiratory Ventilation, Greater than 96 Consecutive Hours, Continuous Positive Airway Pressure (ICD-10-PCS; 2021-08-21)
PROC: 5A1955Z Respiratory Ventilation, Greater than 96 Consecutive Hours (ICD-10-PCS; principal; 2021-08-31)
PROC: 0BH17EZ Insertion of Endotracheal Airway into Trachea, Via Natural or Artificial Opening (ICD-10-PCS; 2021-08-31)
DX: U07.1 COVID-19 (principal); J12.82 Pneumonia due to coronavirus disease 2019; J80 Acute respiratory distress syndrome; J15.9 Unspecified bacterial pneumonia; Z68.43 Body mass index [BMI] 50.0-59.9, adult; J44.0 Chronic obstructive pulmonary disease with (acute) lower respiratory infection; E66.01 Morbid (severe) obesity due to excess calories; Z51.5 Encounter for palliative care; Z66 Do not resuscitate; I10 Essential (primary) hypertension; G47.33 Obstructive sleep apnea (adult) (pediatric); R73.9 Hyperglycemia, unspecified; I48.0 Paroxysmal atrial fibrillation; E87.5 Hyperkalemia; Z79.82 Long term (current) use of aspirin; T38.0X5A Adverse effect of glucocorticoids and synthetic analogues, initial encounter; Z73.0 Burn-out
CPT/HCPCS: 36415; 36569; 36600; 71045; 74018; 76937; 80048; 80053; 81000; 82728; 82805; 82947; 83036; 83605; 83735; 83880; 84100; 84145; 84478; 84484; 85007; 85025; 85027; 85379; 86141; 87040; 87088; 93005; 94002; 94003; 94640; 94660; 94664; 94760; 94799; 96374; 96375; 99291